=== PATIENT | female | born 1950 | race African-American/Black ===

== ENCOUNTER 2016-11-24 11:01 | Inpatient (IN) | payer MEDICARE, BC ==
[~2016-11-24] VITALS: Ht 167.6 cm; Wt 98.0 kg
[2016-11-24 11:45] VITALS: BP 156/78
--- NOTE | 2016-11-24 12:28 | Emergency Room Report ---
History of Present Illness General Chief Complaint: Pain Source: Patient, Medical Record Present Illness HPI Patient is a 66-year-old female who presented after having gradual onset of increased right leg swelling and discomfort. Patient had prior history of right knee replacement. Patient noted to have subjective fever. Patient was noted to have increased swelling to her right knee which had become increasingly painful. The patient is history of knee surgery which [place]. The patient had prior history of diabetes and was being dialyzed intermittently. Allergies: Coded Allergies: AMOXICILLIN (Verified Allergy, Unknown, 11/24/16) CHOCOLATE FLAVOR (Verified Allergy, Unknown, 11/24/16) Patient History Reviewed Nursing Documentation: PMH: Agreed, PSxH: Agreed Nursing Documentation-PMH Past Medical History: No History, Except For Hx Hypertension: Yes Hx Asthma: Yes Hx Dialysis: Yes - M W F Review of Systems All Other Systems: negative except mentioned in HPI Physical Exam Vital Signs Date Time Temp Pulse Resp B/P Pulse Ox O2 Delivery O2 Flow Rate FiO2 11/24/16 11:31 98.2 79 18 156/78 99 Room Air Sp02 EP Interpretation: reviewed, normal General Appearance: normal inspection, well appearing, no apparent distress, alert, GCS 15 Head: atraumatic ENT: normal ENT inspection, hearing grossly normal, normal voice Neck: normal inspection, full range of motion, supple, no bony tend Respiratory: normal inspection, lungs clear, normal breath sounds, no respiratory distress, no retraction, no wheezing Cardiovascular #1: regular rate, rhythm, no edema Gastrointestinal: normal inspection, normal bowel sounds, non tender, soft, no guarding, no hernia Genitourinary: no CVA tenderness Musculoskeletal: normal inspection, back normal, normal range of motion Neurologic: normal inspection, alert, responsive, speech normal Psychiatric: normal inspection, judgement/insight normal, mood/affect normal Skin: other Medical Decision Making Diagnostic Impression: Primary Impression: Knee effusion, right Additional Impressions: ESRD (end stage renal disease) Diabetes ER Course Presented for knee pain. Differential diagnosis included but was not limited to arthritis, gout, septic joint, among others.Because of complexity of patient' s case laboratory testing and imaging studies were ordered. Had patient was noted to have no evidence of DVT on ultrasound. Patient was also noted to have elevated ESR as well as CRP consistent with inflammation to the right knee. The x-ray imaging of the right knee read by radiology showed a large joint effusion. Dr. Daryl Ochoa was contacted for inpatient observation. Dr. Warren was contacted for orthopedic consult. Labs Test 11/24/16 12:00 White Blood Count 10.4 K/UL (4.8-10.8) Red Blood Count 2.98 M/UL (4.20-5.40) Hemoglobin 9.5 G/DL (12.0-16.0) Hematocrit 30.8 % (37.0-47.0) Mean Corpuscular Volume 104 FL (80-99) Mean Corpuscular Hemoglobin 31.8 PG (27.0-31.0) Mean Corpuscular Hemoglobin Concent 30.7 G/DL (32.0-36.0) Red Cell Distribution Width 15.1 % (11.6-14.8) Platelet Count 388 K/UL (150-450) Mean Platelet Volume 5.8 FL (6.5-10.1) Neutrophils (%) (Auto) 62.1 % (45.0-75.0) Lymphocytes (%) (Auto) 18.8 % (20.0-45.0) Monocytes (%) (Auto) 15.4 % (1.0-10.0) Eosinophils (%) (Auto) 2.7 % (0.0-3.0) Basophils (%) (Auto) 1.0 % (0.0-2.0) Erythrocyte Sedimentation Rate 113 MM/HR (0-30) Sodium Level 138 mEQ/L (135-145) Potassium Level 3.4 mEQ/L (3.4-4.9) Chloride Level 93 mEQ/L (98-107) Carbon Dioxide Level 33 mEQ/L (20-30) Anion Gap 12 (5-15) Blood Urea Nitrogen 18 mg/dL (7-23) Creatinine 5.2 mg/dL (0.5-0.9) Estimat Glomerular Filtration Rate 9.9 mL/min (>60) Glucose Level 111 mg/dL (74-106) Calcium Level 9.1 mg/dL (8.6-10.2) Total Bilirubin 0.6 mg/dL (0.0-1.2) Aspartate Amino Transf (AST/SGOT) 17 U/L (5-40) Alanine Aminotransferase (ALT/SGPT) 17 U/L (3-33) Alkaline Phosphatase 59 U/L (35-104) C-Reactive Protein, Quantitative 29.0 mg/dL (< 0.5) Total Protein 7.8 g/dL (6.6-8.7) Albumin 3.5 g/dL (3.5-5.2) Globulin 4.3 g/dL Albumin/Globulin Ratio 0.8 (1.0-2.7) Last Vital Signs Date Time Temp Pulse Resp B/P Pulse Ox O2 Delivery O2 Flow Rate FiO2 11/24/16 11:45 98.2 18 156/78 99 Room Air 11/24/16 11:31 79 Status: unchanged Disposition: PLACE IN OBSERVATION Condition: Serious Referrals: APOLINAR OCHOA (PCP) Reinaldo Barron Nov 24, 2016 12:28
[2016-11-24 12:30] LABS: EOSINOPHILS % (AUTO) 2.7 % (0.0-3.0); LYMPHOCYTES % (AUTO) 18.8 % (20.0-45.0); MEAN CORPUSCULAR HEMOGLOBIN 31.8 PG (27.0-31.0); MEAN CORPUSCULAR HGB CONC 30.7 G/DL (32.0-36.0); MEAN CORPUSCULAR VOLUME 104 FL (80-99); MEAN PLATELET VOLUME 5.8 FL (6.5-10.1); MONOCYTES % (AUTO) 15.4 % (1.0-10.0); NEUTROPHILS % (AUTO) 62.1 % (45.0-75.0); PLATELET COUNT 388 K/UL (150-450); RED BLOOD COUNT 2.98 M/UL (4.20-5.40); RED CELL DISTRIBUTION WIDTH 15.1 % (11.6-14.8); WHITE BLOOD COUNT 10.4 K/UL (4.8-10.8)
--- NOTE | 2016-11-24 12:31 | Diagnostic Imaging Report ---
Indication: Pain 3 views of the right knee were obtained. Findings: There is suggestion of a large joint effusion. The cemented total knee arthroplasty is present. There is no fracture or malalignment identified. No abnormal interface lucencies are seen. Impression: Joint effusion. Total knee arthroplasty noted
[2016-11-24 12:41] LABS: ALBUMIN/GLOBULIN RATIO 0.8 (1.0-2.7); CALCIUM 9.1 mg/dL (8.6-10.2); CREATININE 5.2 mg/dL (0.5-0.9); GLOMERULAR FILTRATION RATE 9.9 mL/min (>60); POTASSIUM 3.4 mEQ/L (3.4-4.9); TOTAL PROTEIN 7.8 g/dL (6.6-8.7)
[2016-11-24 15:05] VITALS: BP 152/88
[2016-11-24 15:51] VITALS: BP 164/81
[2016-11-24] MEDS ORDERED: ELIQUIS2.5 MG PO (16:00)
[2016-11-24] MEDS ORDERED: METOPROLOL TART50 MG ORAL (16:00)
[2016-11-24] MEDS ORDERED: TRAMADOL HCL50 MG ORAL (16:00)
[2016-11-24] MEDS ORDERED: FAMOTIDINE20 MG ORAL (16:00)
[2016-11-24] MEDS ORDERED: RENVELA2.4 GM ORAL (16:00)
[2016-11-24 17:27] VITALS: BP 140/64
[2016-11-24] MEDS: Eliquis 2.5mg tablet ORAL SCH (18:28)
[2016-11-24] MEDS: Renvela 2400 mg pkt NG SCH (18:28)
[2016-11-24] MEDS ORDERED: Vancomycin 1250mg/D5W 250ml IVPB ONE (18:30)
--- NOTE | 2016-11-24 18:56 | History & Physical ---
History and Physical History & Physicial 66-year-old female who presented after having gradual onset of increased right leg swelling and discomfort. Patient had prior history of right knee replacement. She notes subjective fever. Patient was noted to have increased swelling to her right knee which has now become increasingly painful. Patient has been cooperative with dialysis. She has had some difficulty bearing weight. findings noted and reviewed. Active Medications: ELIQUIS 2.5 MG ORAL TABS (APIXABAN) 1 po bid LEVOTHYROXINE SODIUM 125 MCG TABS (LEVOTHYROXINE SODIUM) 1 tab qd FAMOTIDINE 20 MG TABS (FAMOTIDINE) 1 tab po bid METOPROLOL TARTRATE 50 MG ORAL TABS (METOPROLOL TARTRATE) 1 tab bid TRAMADOL HCL 50 MG ORAL TABS (TRAMADOL HCL) 1 TAB BY MOUTH EVERY 6HRS NEEDED FOR MODERATE TO SEVERE PAIN *NTE 400MGHRS* Current Allergies: PENICILLIN (PENICILLIN V POTASSIUM) (Mild) Past History Past Medical History: DVT left arm and left leg Hypertension hx carpal tunnel syndrome acute kidney failure Hypothyroidism Surgical History: dialysis M_W_F carpal tunnle release left hand left knee replacement right knee replacement thyroidectomy tubaligation Cholecystectomy fistula left arm tonsillectomy Family History: Both parents Mother-heart disease Father-prostate cancer Social History: single; 2 children;lives alone; retired Risk Factors: Smoked Tobacco Use: Former smoker Cigarettes: Yes -- 1/2 pack(s) per day, Years smoked: 5-10 Years Since Last Quit: 40 Caffeine use: 2 drinks per day Alcohol use: no Physical Exam Respiratory Respiratory Effort: no intercostal retractions or use of accessory muscles Palpation: normal fremitus Auscultation: no rales, rhonchi, or wheezes Cardiovascular Palpation: no thrill or palpable murmurs, no displacement of PMI Auscultation: S1, S2, no murmur, rub, or gallop Gastrointestinal Abdomen: soft, non-tender, no masses, bowel sounds normal minimal epigastric tendernsss Liver and Spleen: no enlargement or nodularity Musculoskeletal Gait and Station: normal LUE: AV fistula right knee swelling and erythema Laboratory Tests Test 11/24/16 12:00 White Blood Count 10.4 K/UL (4.8-10.8) Red Blood Count 2.98 M/UL (4.20-5.40) L Hemoglobin 9.5 G/DL (12.0-16.0) L Hematocrit 30.8 % (37.0-47.0) L Mean Corpuscular Volume 104 FL (80-99) H Mean Corpuscular Hemoglobin 31.8 PG (27.0-31.0) H Mean Corpuscular Hemoglobin Concent 30.7 G/DL (32.0-36.0) L Red Cell Distribution Width 15.1 % (11.6-14.8) H Platelet Count 388 K/UL (150-450) Mean Platelet Volume 5.8 FL (6.5-10.1) L Neutrophils (%) (Auto) 62.1 % (45.0-75.0) Lymphocytes (%) (Auto) 18.8 % (20.0-45.0) L Monocytes (%) (Auto) 15.4 % (1.0-10.0) H Eosinophils (%) (Auto) 2.7 % (0.0-3.0) Basophils (%) (Auto) 1.0 % (0.0-2.0) Erythrocyte Sedimentation Rate 113 MM/HR (0-30) H Sodium Level 138 mEQ/L (135-145) Potassium Level 3.4 mEQ/L (3.4-4.9) Chloride Level 93 mEQ/L (98-107) L Carbon Dioxide Level 33 mEQ/L (20-30) H Anion Gap 12 (5-15) Blood Urea Nitrogen 18 mg/dL (7-23) Creatinine 5.2 mg/dL (0.5-0.9) H Estimat Glomerular Filtration Rate 9.9 mL/min (>60) Glucose Level 111 mg/dL (74-106) H Calcium Level 9.1 mg/dL (8.6-10.2) Total Bilirubin 0.6 mg/dL (0.0-1.2) Aspartate Amino Transf (AST/SGOT) 17 U/L (5-40) Alanine Aminotransferase (ALT/SGPT) 17 U/L (3-33) Alkaline Phosphatase 59 U/L (35-104) C-Reactive Protein, Quantitative 29.0 mg/dL (< 0.5) H Total Protein 7.8 g/dL (6.6-8.7) Albumin 3.5 g/dL (3.5-5.2) Globulin 4.3 g/dL Albumin/Globulin Ratio 0.8 (1.0-2.7) L IMPRESSION right knee swelling elevated CRP concern for joint infection ESRD anemia prior GIB PLAN IV vanco ID evaluation consider ortho evaluation resume medications HD per renal impression, plan, and exam edited and reviewed in detail care discussed with APOLINAR GONZALEZ Nov 24, 2016 18:55
[2016-11-24 20:00] VITALS: BP 145/76
[2016-11-24] MEDS ORDERED: Heparin 5000 units/ml inj SUBQ SCH (21:00)
[2016-11-24] MEDS ORDERED: Famotidine 20 MG/ 2ML VIAL IVP SCH (21:00)
[2016-11-24] MEDS: Metoprolol Tartrate 50mg tab ORAL SCH (21:02)
[2016-11-25] VITALS (7 sets, daily range): BP systolic 140–157; BP diastolic 74–96
[2016-11-25 07:05] LABS: BASOPHILS % (AUTO) 0.9 % (0.0-2.0); EOSINOPHILS % (AUTO) 2.8 % (0.0-3.0); LYMPHOCYTES % (AUTO) 21.4 % (20.0-45.0); MEAN CORPUSCULAR HEMOGLOBIN 31.1 PG (27.0-31.0); MEAN CORPUSCULAR VOLUME 104 FL (80-99); MEAN PLATELET VOLUME 6.1 FL (6.5-10.1); MONOCYTES % (AUTO) 14.4 % (1.0-10.0); NEUTROPHILS % (AUTO) 60.5 % (45.0-75.0); PLATELET COUNT 371 K/UL (150-450); RED CELL DISTRIBUTION WIDTH 15.1 % (11.6-14.8); WHITE BLOOD COUNT 8.3 K/UL (4.8-10.8)
[2016-11-25] MEDS: Eliquis 2.5mg tablet ORAL SCH (08:22)
[2016-11-25] MEDS: Metoprolol Tartrate 50mg tab ORAL SCH ×2 (08:22→20:03)
[2016-11-25] MEDS: traMADol 50mg tab ORAL PRN (08:23)
[2016-11-25] MEDS: Renvela 2400 mg pkt NG SCH (08:23)
--- NOTE | 2016-11-25 08:31 | Consultation ---
Consult Note Consult Note 66 Yo ESRD pt with rt TKA 1 year ago out of state. 1 week hx of rt knee swelling warmth and pain with subjective fever. no trauma. abx started on admission. ESR/CRP elevated 2+ effusion rt knee with painful ROM and warmth. incision healed. no erythema that can be appreciated Xray reviewed- no issue with prosthesis Assessment/Plan Likely Septic Rt TKA 1. IR aspiration of rt knee with fluid sent for studies 2. likely needs transfer to [facility] for resection arthroplasty with cement abx spacer, 6weeks IV abx, followed by revision TKA after abx tx complete 3. will f/u on studies ADAMS BATES Nov 25, 2016 08:31
--- NOTE | 2016-11-25 09:00 | General Progress Note ---
Assessment/Plan Assessment/Plan IMPRESSION right knee swelling elevated CRP concern for joint infection ESRD anemia prior GIB hypothyroid PLAN IV vanco ID evaluation Ortho evaluation resume medications HD per renal impression, plan, and exam edited and reviewed in detail care discussed with RN Subjective Allergies: Coded Allergies: AMOXICILLIN (Verified Allergy, Unknown, 11/24/16) CHOCOLATE FLAVOR (Verified Allergy, Unknown, 11/24/16) Subjective care noted and reviewed knee pain on antibiotics Objective Last 24 Hour Vital Signs Date Time Temp Pulse Resp B/P Pulse Ox O2 Delivery O2 Flow Rate FiO2 11/25/16 08:29 98.6 74 20 155/81 100 Room Air 11/25/16 08:22 71 149/80 11/25/16 06:24 97.5 11/25/16 04:15 97.5 71 20 149/80 97 Room Air 11/25/16 00:51 97.3 64 20 157/80 98 Nasal Cannula 11/24/16 21:02 77 140/64 11/24/16 20:00 99.0 82 19 145/76 94 Nasal Cannula 11/24/16 17:27 99.0 77 18 140/64 95 Room Air 11/24/16 16:12 86 16 146/59 99 Room Air 11/24/16 15:05 77 12 152/88 100 Room Air 11/24/16 11:45 98.2 18 156/78 99 Room Air 11/24/16 11:31 98.2 79 18 156/78 99 Room Air Intake and Output 11/24/16 11/25/16 19:00 07:00 Intake Total 320 ml Balance 320 ml Intake Oral 320 ml # Voids 1 Laboratory Tests 11/24/16 12:00: White Blood Count 10.4, Red Blood Count 2.98L, Hemoglobin 9.5L, Hematocrit 30.8L , Mean Corpuscular Volume 104H, Mean Corpuscular Hemoglobin 31.8H, Mean Corpuscular Hemoglobin Concent 30.7L, Red Cell Distribution Width 15.1H, Platelet Count 388, Mean Platelet Volume 5.8L, Neutrophils (%) (Auto) 62.1, Lymphocytes (%) (Auto) 18.8L, Monocytes (%) (Auto) 15.4H, Eosinophils (%) (Auto ) 2.7, Basophils (%) (Auto) 1.0, Erythrocyte Sedimentation Rate 113H, Sodium Level 138, Potassium Level 3.4, Chloride Level 93L, Carbon Dioxide Level 33H, Anion Gap 12, Blood Urea Nitrogen 18, Creatinine 5.2H, Estimat Glomerular Filtration Rate 9.9, Glucose Level 111H, Calcium Level 9.1, Total Bilirubin 0.6 , Aspartate Amino Transf (AST/SGOT) 17, Alanine Aminotransferase (ALT/SGPT) 17, Alkaline Phosphatase 59, C-Reactive Protein, Quantitative 29.0H, Total Protein 7.8, Albumin 3.5, Globulin 4.3, Albumin/Globulin Ratio 0.8L 11/25/16 05:40: White Blood Count 8.3, Red Blood Count 2.90L, Hemoglobin 9.0L, Hematocrit 30.0L , Mean Corpuscular Volume 104H, Mean Corpuscular Hemoglobin 31.1H, Mean Corpuscular Hemoglobin Concent 30.0L, Red Cell Distribution Width 15.1H, Platelet Count 371, Mean Platelet Volume 6.1L, Neutrophils (%) (Auto) 60.5, Lymphocytes (%) (Auto) 21.4, Monocytes (%) (Auto) 14.4H, Eosinophils (%) (Auto) 2.8, Basophils (%) (Auto) 0.9, C-Reactive Protein, Quantitative 24.5H Height (Feet): 5 Height (Inches): 6.00 Weight (Pounds): 219 Objective WDWN NAD clear breath sounds bilaterally without rhonchi or wheeze [id number] without MRG NABS nontender no HSM no CCE nonfocal pain and erythema with reduced ROM of right knee APOLINAR PINA Nov 25, 2016 09:00
[2016-11-25] MEDS ORDERED: NS 275ml ONE (09:07)
[2016-11-25] MEDS ORDERED: Tubing IV Secondary IV ONE (09:07)
--- NOTE | 2016-11-25 13:45 | Consultation ---
DATE OF CONSULTATION: 11/25/2016 ORTHOPEDIC CONSULTATION HISTORY OF PRESENT ILLNESS: The patient is a pleasant 66-year-old female, who is on dialysis and had a right total knee arthroplasty in January 2016, out of state, who presented to [facility] last night with pain and swelling in the right knee and inability to get around. The patient indicates that her knee has been swollen and painful for about a week and she does not recall how this came about. There was no trauma and no fall. She did not hit her knee on anything. She has noted some subjective fevers at home, although she has not taken her temperature and here at the hospital CRP and ESR have been elevated. She has not had any documented fevers or documented white count, but she has significantly swollen and painful right knee and she has had a hard time getting around. PAST MEDICAL HISTORY: Diabetes, on dialysis. PAST SURGICAL HISTORY: Knee replacement in 2016, [place] of state. SOCIAL HISTORY: She is single. She has two children. She is retired. She lives alone. FAMILY HISTORY: Noncontributory. REVIEW OF SYSTEMS: The patient complains of some subjective fever and chills. She has had no headache or dizziness. She has had right knee pain and swelling. She denies chest pain or shortness of breath. PHYSICAL EXAMINATION: GENERAL: She is a very pleasant woman. She is cooperative with examination. She is lying in bed comfortably. EXTREMITIES: She has a 2+ effusion about the right knee with a healed incision. No erythema or signs of wound or skin breakdown in the area, although she has significant warmth to the skin. She has full extension, but can only flex to about 45 degrees without significant pain. She is neurovascularly intact. DIAGNOSTIC DATA: X-rays are reviewed. X-ray of the knee revealed TKA without any periprosthetic fracture. IMPRESSION: Likely septic right total knee. DISCUSSION: At this time, I discussed the patient my findings. We will send her down to interventional radiology for aspiration of the knee and send the fluid for culture and sensitivity, gram stain, cell count with differential, as well as crystals. We will follow up on that although likely the patient will need transfer to a tertiary center such as [facility] for likely resection arthroplasty with cement antibiotic spacers followed by six weeks of IV antibiotics. Once IV antibiotics are completed, the patient will then need revision knee arthroplasty on this side. This again should be handled at tertiary center such as [facility] with a joint resection specialist. I will follow up on the studies and make recommendations to likely initiate transfer once these have been reviewed as well. Discussed with the patient. She understands with the plan. Sherwin Warren M.D. Skyla Nair DR: MAGALI JOB#: [id number] CC: JESUS
--- NOTE | 2016-11-25 18:45 | Consultation ---
DATE OF CONSULTATION: 11/25/2016 INFECTIOUS DISEASE CONSULTATION REFERRING PHYSICIAN: Arya Ochoa M.D. REASON FOR CONSULTATION: Right knee infection. HISTORY OF PRESENTING ILLNESS: This is a 66-year-old lady with history of hypertension and asthma as well as carpal tunnel syndrome who came in with increasing pain and swelling in the right leg. She had a history of right knee replacement in January 2016. She does get dialysis for renal failure. She has been admitted and an Infectious Diseases consultation has been obtained for antibiotics. She has been seen by orthopedics and an aspiration of the knee is planned and an Infectious Diseases consultation has been obtained. PAST MEDICAL HISTORY: 1. History of hypertension. 2. History of asthma. 3. History of renal failure, on dialysis. 4. Carpal tunnel syndrome. 5. Hypothyroidism. 6. History of carpal tunnel release. 7. History of right knee replacement in January 2016. 8. History of left knee replacement. 9. Thyroidectomy. 10. History of tubal ligation. 11. Cholecystectomy. 12. History of left arm fistula placement. 13. Tonsillectomy. MEDICATIONS: As an inpatient, she is on Synthroid, famotidine, metoprolol, Tylenol, Eliquis, Renvela, IV vancomycin and Ultram. ALLERGIES: 1. Amoxicillin. 2. Chocolate. SOCIAL HISTORY: She used to smoke before. She does not smoke anymore. She drinks alcohol socially. No history of drug use. FAMILY HISTORY: Positive for heart disease in her mother and prostate cancer in her father. REVIEW OF SYSTEMS: Respiratory: She had fever and chills. No cough. No shortness of breath or chest pain. Cardiac: No chest pain. No palpitation. No dizziness. No syncope. Gastrointestinal: No nausea. No vomiting. No abdominal pain or diarrhea. Musculoskeletal: She complains of right knee pain. PHYSICAL EXAMINATION: VITAL SIGNS: Temperature of 97.6 degrees, T-max of 99 degrees, pulse of 69, respiratory rate 20, blood pressure 142/74 and O2 saturation of 98%. HEENT: Pupils equally reactive to light and accommodation. Mouth appears clean without thrush. NECK: Supple. No adenopathy. No JVD. CARDIOVASCULAR: Regular rate and rhythm. No murmurs. LUNGS: Clear to auscultation bilaterally. No crackles. No wheezes. ABDOMEN: Soft and nontender. No organomegaly. EXTREMITIES: No cyanosis, no clubbing, and no edema. Right knee swelling and tenderness noted. LABORATORY AND DIAGNOSTIC DATA: White count 8.3, hemoglobin 9, hematocrit 30, MCV 104, and platelet count of 371,000 with neutrophils of 60%. Sodium 138, potassium 3.4, chloride 93, bicarbonate 33, BUN 18, creatinine 5.2, and glucose 111. Calcium 9.1. Total bilirubin 0.6. AST 17, ALT 17, and alkaline phosphatase 59. C-reactive protein of 24. Total protein 7.8. Albumin 3.5. Knee x-ray showing joint effusion with total knee arthroplasty. ASSESSMENT: 1. This is a 66-year-old lady with history of hypertension, renal failure, and right knee arthroplasty who comes in with right knee swelling and pain and fever and chills, would be concerned regarding an arthroplasty infection or septic arthritis of the right knee. 2. Renal failure. PLAN: 1. Continue IV vancomycin. 2. Aspiration of the knee has been planned. 3. We will follow up cultures. I would like to thank, Dr. Ochoa, for this consultation. Yin Hooks M.D. DR: GINI JOB#: [id number] CC: Arya Ochoa M.D.
--- NOTE | 2016-11-25 22:15 | Consultation ---
DATE OF CONSULTATION: 11/25/2016 NEPHROLOGY CONSULTATION CONSULTING PHYSICIAN: Hemanth Zapata M.D. REFERRING PHYSICIAN: Arya Ochoa M.D. REASON FOR CONSULTATION: I am asked to evaluate this 66-year-old lady with end-stage renal disease and a swollen right knee. HISTORY OF PRESENT ILLNESS: The patient has end-stage renal disease, receives dialysis via a left arm AV fistula. She has been on dialysis for about six months. She presents with a new onset of right knee pain and swelling. The patient has been on Eliquis for DVT, but recent study showed no DVT acutely. There is no fever or chills, but her knee is warm and swollen. The patient has a history of hypothyroidism, on replacement, hypertension, and end-stage renal disease. No obesity and osteoarthritis. PAST SURGERIES: Carpal tunnel left hand, left knee replacement, right knee replacement, thyroidectomy, tubal ablation, cholecystectomy, fistula in the left arm, and tonsillectomy. HOME MEDICATIONS: Includes Eliquis, levothyroxine, famotidine, metoprolol, and tramadol. ALLERGIES: Penicillin. FAMILY HISTORY: Positive for diabetes and hypertension. HABITS: She smoked cigarettes many years ago for few years and quit. Alcohol, rare. Drugs, none. SYSTEM REVIEW: HEENT: Vision and hearing is good. ENDOCRINE: History of obesity. She had been on metformin sometime in the past, but she denies diabetes. History of hypothyroidism, on replacement. PULMONARY: No asthma, TB, or chronic cough. CARDIAC: No angina or ME. There is a history of hypertension. She has had one episode of congestive heart failure in the past. GASTROINTESTINAL: Intermittent gastritis. No recent nausea, vomiting, or abdominal pain. GENITOURINARY: No dysuria or hematuria. MUSCULOSKELETAL: Osteoarthritis of the knees. She was walking with a cane prior to painful swelling of the knee. NEUROLOGIC: No features. PHYSICAL EXAMINATION: GENERAL: The patient is alert, obese lady, lying in bed, seen at the initiation of dialysis. VITAL SIGNS: Temperature 97.6 degrees, pulse 69, respirations 20, and blood pressure 142/74. HEENT: Sclerae are nonicteric. Ocular motion intact in all directions. Oral mucosa is moist. NECK: No adenopathy or thyroid enlargement. LUNGS: Clear. HEART: Regular rhythm. No murmur. ABDOMEN: Obese and soft. No organomegaly or masses. EXTREMITIES: Showed trace leg edema. She has an AV fistula on the left arm working on dialysis. There are bilateral total knee incisions. Right knee is markedly swollen and warm. PERTINENT LABORATORY DATA: Pertinent labs show a white count of 8.3, hemoglobin 9, and sed rate 113. Electrolytes, potassium is 3.4 and creatinine is 5.2. C-reactive protein is quite high. IMPRESSION AND PLAN: The patient presents with right knee pain and swelling, which could be due to infected knee prosthesis or possibly hematoma in view of her Eliquis recently. She has been seen by orthopedic business process consultant, who recommended aspiration of the knee. Dialysis will be done for maintenance and fluid balance. In view of her obesity and end-stage renal disease, she has increased risk of infection and complications and will be watched closely. Medications will be adjusted for end-stage renal disease. Hemanth Zapata M.D. DR: JENNA JOB#: [id number] CC:
[2016-11-26] VITALS: BP 138/80
[2016-11-26] MEDS: traMADol 50mg tab ORAL PRN ×2 (00:43→18:09)
[2016-11-26 04:00] VITALS: BP 132/75
[2016-11-26 08:06] VITALS: BP 119/61
[2016-11-26] MEDS: Metoprolol Tartrate 50mg tab ORAL SCH ×2 (08:20→20:29)
[2016-11-26 08:35] LABS: BASOPHILS % (AUTO) 0.4 % (0.0-2.0); EOSINOPHILS % (AUTO) 1.8 % (0.0-3.0); LYMPHOCYTES % (AUTO) 16.8 % (20.0-45.0); MEAN CORPUSCULAR HEMOGLOBIN 31.7 PG (27.0-31.0); MEAN CORPUSCULAR HGB CONC 30.8 G/DL (32.0-36.0); MEAN CORPUSCULAR VOLUME 103 FL (80-99); MEAN PLATELET VOLUME 5.8 FL (6.5-10.1); MONOCYTES % (AUTO) 10.7 % (1.0-10.0); NEUTROPHILS % (AUTO) 70.3 % (45.0-75.0); PLATELET COUNT 381 K/UL (150-450); RED BLOOD COUNT 2.93 M/UL (4.20-5.40); RED CELL DISTRIBUTION WIDTH 14.8 % (11.6-14.8); WHITE BLOOD COUNT 11.6 K/UL (4.8-10.8)
--- NOTE | 2016-11-26 09:27 | General Progress Note ---
Assessment/Plan Assessment/Plan IMPRESSION right knee swelling elevated CRP concern for joint infection ESRD anemia prior GIB hypothyroid PLAN IV antibiotics ID evaluation appreciated Ortho evaluation noted resume medications HD per renal await recommendations by specialists and disposition impression, plan, and exam edited and reviewed in detail care discussed with RN Subjective Allergies: Coded Allergies: AMOXICILLIN (Verified Allergy, Unknown, 11/24/16) CHOCOLATE FLAVOR (Verified Allergy, Unknown, 11/24/16) Subjective care noted and reviewed knee pain on antibiotics Objective Last 24 Hour Vital Signs Date Time Temp Pulse Resp B/P Pulse Ox O2 Delivery O2 Flow Rate FiO2 11/26/16 08:20 76 119/61 11/26/16 08:06 97.9 76 19 119/61 99 Room Air 11/26/16 04:00 97.9 70 20 132/75 97 Room Air 11/26/16 01:57 98.2 11/26/16 00:00 98.2 75 20 138/80 99 Room Air 11/25/16 20:03 79 145/78 11/25/16 20:00 99.3 79 20 145/78 98 Room Air 11/25/16 19:50 99.3 79 20 145/78 98 Room Air 11/25/16 17:30 Room Air 11/25/16 16:00 97.2 66 20 140/96 94 Room Air 11/25/16 14:30 Room Air 11/25/16 11:47 97.6 69 20 142/74 98 Room Air Intake and Output 11/25/16 11/26/16 19:00 07:00 Intake Total 800 ml Output Total 1850 ml Balance -1050 ml Intake Oral 800 ml Output Hemodialysis UF 1850 ml # Voids 4 # Bowel Movements 1 Laboratory Tests 11/25/16 16:42: Hepatitis A IgM Antibody [Pending], Hepatitis B Surface Antigen [Pending], Hepatitis B Core IgM Antibody [Pending], Hepatitis C Antibody [Pending] 11/26/16 05:20: White Blood Count 11.6H, Red Blood Count 2.93L, Hemoglobin 9.3L, Hematocrit 30.2L, Mean Corpuscular Volume 103H, Mean Corpuscular Hemoglobin 31.7H, Mean Corpuscular Hemoglobin Concent 30.8L, Red Cell Distribution Width 14.8, Platelet Count 381, Mean Platelet Volume 5.8L, Neutrophils (%) (Auto) 70.3, Lymphocytes (%) (Auto) 16.8L, Monocytes (%) (Auto) 10.7H, Eosinophils (%) (Auto ) 1.8, Basophils (%) (Auto) 0.4, Sodium Level [Pending], Potassium Level [ Pending], Chloride Level [Pending], Carbon Dioxide Level [Pending], Blood Urea Nitrogen [Pending], Creatinine [Pending], Estimat Glomerular Filtration Rate [ Pending], Glucose Level [Pending], Calcium Level [Pending], Random Vancomycin Level 2.0 Height (Feet): 5 Height (Inches): 6.00 Weight (Pounds): 219 Objective WDWN NAD clear breath sounds bilaterally without rhonchi or wheeze [id number] without MRG NABS nontender no HSM no CCE nonfocal pain and erythema with reduced ROM of right knee APOLINAR PINA Nov 26, 2016 09:27
[2016-11-26 09:28] LABS: CALCIUM 9.4 mg/dL (8.6-10.2); CREATININE 6.3 mg/dL (0.5-0.9); POTASSIUM 4.1 mEQ/L (3.4-4.9)
[2016-11-26] MEDS ORDERED: Vancomycin 1.5gm/D5W 250ml 250 ML IVPB ONE (10:00)
[2016-11-26] MEDS: Docusate 100mg cap ORAL SCH ×2 (10:12→17:05)
[2016-11-26 11:24] VITALS: BP 115/69
--- NOTE | 2016-11-26 12:26 | Nephrology Progress Note ---
Assessment/Plan Problem List: (1) ESRD (end stage renal disease) (2) Knee effusion, right (3) Diabetes Plan dialysiss per usual schedule, knee aspiration pending , likely will need knee washout/surgery Subjective Constitutional: Reports: weakness HEENT: Reports: no symptoms Genitourinary: Reports: no symptoms Neurologic/Psychiatric: Reports: no symptoms Objective Objective Last 24 Hour Vital Signs Date Time Temp Pulse Resp B/P Pulse Ox O2 Delivery O2 Flow Rate FiO2 11/26/16 11:24 97.5 67 19 115/69 98 Room Air 11/26/16 08:20 76 119/61 11/26/16 08:06 97.9 76 19 119/61 99 Room Air 11/26/16 04:00 97.9 70 20 132/75 97 Room Air 11/26/16 01:57 98.2 11/26/16 00:00 98.2 75 20 138/80 99 Room Air 11/25/16 20:03 79 145/78 11/25/16 20:00 99.3 79 20 145/78 98 Room Air 11/25/16 19:50 99.3 79 20 145/78 98 Room Air 11/25/16 17:30 Room Air 11/25/16 16:00 97.2 66 20 140/96 94 Room Air 11/25/16 14:30 Room Air Intake and Output 11/25/16 11/26/16 19:00 07:00 Intake Total 800 ml Output Total 1850 ml Balance -1050 ml Intake Oral 800 ml Output Hemodialysis UF 1850 ml # Voids 4 # Bowel Movements 1 Laboratory Tests 11/25/16 16:42: Hepatitis A IgM Antibody [Pending], Hepatitis B Surface Antigen [Pending], Hepatitis B Core IgM Antibody [Pending], Hepatitis C Antibody [Pending] 11/26/16 05:20: White Blood Count 11.6H, Red Blood Count 2.93L, Hemoglobin 9.3L, Hematocrit 30.2L, Mean Corpuscular Volume 103H, Mean Corpuscular Hemoglobin 31.7H, Mean Corpuscular Hemoglobin Concent 30.8L, Red Cell Distribution Width 14.8, Platelet Count 381, Mean Platelet Volume 5.8L, Neutrophils (%) (Auto) 70.3, Lymphocytes (%) (Auto) 16.8L, Monocytes (%) (Auto) 10.7H, Eosinophils (%) (Auto ) 1.8, Basophils (%) (Auto) 0.4, Sodium Level 133L, Potassium Level 4.1, Chloride Level 91L, Carbon Dioxide Level 30, Anion Gap 12, Blood Urea Nitrogen 30H, Creatinine 6.3H, Estimat Glomerular Filtration Rate 8.0, Glucose Level 89, Calcium Level 9.4, Random Vancomycin Level 2.0 Height (Feet): 5 Height (Inches): 6.00 Weight (Pounds): 219 General Appearance: no apparent distress, obese EENT: PERRL/EOMI Neck: normal alignment Cardiovascular: normal peripheral pulses, regular rhythm Respiratory/Chest: lungs clear Abdomen: non tender Extremities: normal capillary refill, other - mod r knee swelling Neurologic: parts room assistant II-XII grossly normal TIMUR BROWER Nov 26, 2016 12:26
--- NOTE | 2016-11-26 13:27 | Orthopedic Progress Note ---
Orthopedic - Progress Note Subjective Additional Comments Patient knee pain under control. The aspiration was not done yesterday (radiology told the nurse that they could not see the order). Order clearly in the computer. Objective Vital Signs Last 24 Hour Vital Signs Date Time Temp Pulse Resp B/P Pulse Ox O2 Delivery O2 Flow Rate FiO2 11/26/16 11:24 97.5 67 19 115/69 98 Room Air 11/26/16 08:20 76 119/61 11/26/16 08:06 97.9 76 19 119/61 99 Room Air 11/26/16 04:00 97.9 70 20 132/75 97 Room Air 11/26/16 01:57 98.2 11/26/16 00:00 98.2 75 20 138/80 99 Room Air 11/25/16 20:03 79 145/78 11/25/16 20:00 99.3 79 20 145/78 98 Room Air 11/25/16 19:50 99.3 79 20 145/78 98 Room Air 11/25/16 17:30 Room Air 11/25/16 16:00 97.2 66 20 140/96 94 Room Air 11/25/16 14:30 Room Air I&O Intake and Output 11/25/16 11/26/16 19:00 07:00 Intake Total 800 ml Output Total 1850 ml Balance -1050 ml Intake Oral 800 ml Hemodialysis UF 1850 ml # Voids 4 # Bowel Movements 1 Wound: clean, dry, intact Drains: none Neuro Status: normal Vascular Status: normal Plan Plan: PT, pain management Additional Comments Awaiting radiologist aspiration and send for cell count, diff, cultures, gram stain, sensitivity. NORMA CASEY Nov 26, 2016 13:27
[2016-11-26 15:53] VITALS: BP 136/75
[2016-11-26] MEDS ORDERED: Tubing IV Secondary IV ONE (16:51)
[2016-11-26] MEDS ORDERED: NS 275ml ONE (16:51)
[2016-11-26 20:00] VITALS: BP 120/66
[2016-11-27] VITALS: BP 145/78
[2016-11-27 04:00] VITALS: BP 137/74
--- NOTE | 2016-11-27 08:29 | General Progress Note ---
Assessment/Plan Assessment/Plan IMPRESSION right knee swelling elevated CRP concern for joint infection ESRD anemia prior GIB hypothyroid PLAN no change in exam patient care discussed in detail IV antibiotics ID evaluation appreciated Ortho evaluation noted resume medications HD per renal await recommendations by specialists and disposition aspiration reordered impression, plan, and exam edited and reviewed in detail care discussed with RN Subjective Allergies: Coded Allergies: AMOXICILLIN (Verified Allergy, Unknown, 11/24/16) CHOCOLATE FLAVOR (Verified Allergy, Unknown, 11/24/16) Subjective care noted and reviewed knee pain on antibiotics Objective Last 24 Hour Vital Signs Date Time Temp Pulse Resp B/P Pulse Ox O2 Delivery O2 Flow Rate FiO2 11/27/16 04:00 98.4 73 17 137/74 99 Room Air 11/27/16 00:00 98.8 75 18 145/78 98 Room Air 11/26/16 20:29 72 120/66 11/26/16 20:00 98.2 74 18 120/66 99 Room Air 11/26/16 15:53 97.5 72 18 136/75 100 Room Air 11/26/16 11:24 97.5 67 19 115/69 98 Room Air Intake and Output 11/26/16 11/27/16 19:00 07:00 Intake Total 850.00 ml 240 ml Output Total 0 ml Balance 850.00 ml 240 ml Intake Oral 600 ml 240 ml IV Total 250.00 ml Output Urine Total 0 ml # Voids 1 2 Height (Feet): 5 Height (Inches): 6.00 Weight (Pounds): 219 Objective WDWN NAD clear breath sounds bilaterally without rhonchi or wheeze [id number] without MRG NABS nontender no HSM no CCE nonfocal pain and erythema with reduced ROM of right knee APOLINAR PINA Nov 27, 2016 08:29
[2016-11-27 08:32] VITALS: BP 129/73
--- NOTE | 2016-11-27 09:11 | Infectious Diseases Prog Note ---
Assessment/Plan Assessment/Plan A: R prosthetic knee arthritis ESRD on HD Obesity Hypothyroidism Anemia VRE colonization P; Continue Vancomycin Tapping of R knee planned Subjective Constitutional: Reports: no symptoms Respiratory: Reports: no symptoms Cardiovascular: Reports: no symptoms Genitourinary: Reports: no symptoms Musculoskeletal: Reports: other - & swelling in R knee, pain Allergies: Coded Allergies: AMOXICILLIN (Verified Allergy, Unknown, 11/24/16) CHOCOLATE FLAVOR (Verified Allergy, Unknown, 11/24/16) Objective Vital Signs Last 24 Hour Vital Signs Date Time Temp Pulse Resp B/P Pulse Ox O2 Delivery O2 Flow Rate FiO2 11/27/16 08:32 97.9 75 20 129/73 97 Room Air 11/27/16 04:00 98.4 73 17 137/74 99 Room Air 11/27/16 00:00 98.8 75 18 145/78 98 Room Air 11/26/16 20:29 72 120/66 11/26/16 20:00 98.2 74 18 120/66 99 Room Air 11/26/16 15:53 97.5 72 18 136/75 100 Room Air 11/26/16 11:24 97.5 67 19 115/69 98 Room Air Height (Feet): 5 Height (Inches): 6.00 Weight (Pounds): 219 General Appearance: no acute distress HEENT: mucous membranes moist Respiratory/Chest: lungs clear Cardiovascular: normal rate Abdomen: soft, non tender Extremities: other - Scar of surgery in R knee, R knee effusion Neurologic/Psychiatric: alert, oriented x 3, responsive Microbiology Date/Time Source Procedure Growth Status 11/24/16 16:10 Nasal Nares MRSA Culture - Final NO METHICILLIN RESISTANT STAPH AUREUS... Complete 11/24/16 16:10 Rectum VRE Culture - Final Enterococcus Faecalis - Vre Complete Current Medications Medications (Trade) Dose Ordered Sig/Adia Route PRN Reason Start Time Stop Time Status Last Admin Dose Admin Acetaminophen (Tylenol) 650 mg Q4H PRN ORAL Mild Pain/Temp > 100.5 11/24/16 20:00 12/24/16 19:59 11/26/16 13:06 Docusate Sodium (Colace) 100 mg TWICE A DAY ORAL 11/26/16 09:00 12/26/16 08:59 11/26/16 17:05 Levothyroxine Sodium (Synthroid) 75 mcg DAILY@0630 ORAL 11/25/16 09:00 12/25/16 08:59 11/27/16 05:54 Metoprolol Tartrate (Lopressor) 50 mg Q12HR ORAL 11/24/16 21:00 12/24/16 20:59 11/26/16 20:29 Ranitidine HCl (Zantac) 150 mg BEDTIME ORAL 11/25/16 21:00 12/25/16 20:59 11/26/16 20:28 Sevelamer Carbonate (Renvela) 2,400 mg THREE TIMES A DAY ORAL 11/25/16 13:00 12/25/16 12:59 11/26/16 17:05 Tramadol HCl (Ultram) 50 mg Q6H PRN ORAL PAIN MANAGEMENT 11/24/16 17:15 12/01/16 17:14 11/26/16 18:09 Vancomycin HCl (Vanco rx to dose) 1 ea DAILY PRN MISC Per rx protocol 11/24/16 17:15 12/24/16 17:14 RADHA PALENCIA Nov 27, 2016 09:11
[2016-11-27] MEDS: Docusate 100mg cap ORAL SCH ×2 (09:16→18:09)
[2016-11-27] MEDS: Metoprolol Tartrate 50mg tab ORAL SCH ×2 (09:17→20:45)
--- NOTE | 2016-11-27 10:36 | Nephrology Progress Note ---
Assessment/Plan Problem List: (1) ESRD (end stage renal disease) (2) Knee effusion, right (3) Diabetes Plan dialysis per usual schedule, knee aspiration pending , likely will need knee washout/surgery Subjective Constitutional: Reports: weakness HEENT: Reports: no symptoms Genitourinary: Reports: no symptoms Neurologic/Psychiatric: Reports: no symptoms Objective Objective Last 24 Hour Vital Signs Date Time Temp Pulse Resp B/P Pulse Ox O2 Delivery O2 Flow Rate FiO2 11/27/16 09:17 75 129/73 11/27/16 08:32 97.9 75 20 129/73 97 Room Air 11/27/16 04:00 98.4 73 17 137/74 99 Room Air 11/27/16 00:00 98.8 75 18 145/78 98 Room Air 11/26/16 20:29 72 120/66 11/26/16 20:00 98.2 74 18 120/66 99 Room Air 11/26/16 15:53 97.5 72 18 136/75 100 Room Air 11/26/16 11:24 97.5 67 19 115/69 98 Room Air Intake and Output 11/26/16 11/27/16 19:00 07:00 Intake Total 850.00 ml 240 ml Output Total 0 ml Balance 850.00 ml 240 ml Intake Oral 600 ml 240 ml IV Total 250.00 ml Output Urine Total 0 ml # Voids 1 2 Height (Feet): 5 Height (Inches): 6.00 Weight (Pounds): 219 General Appearance: no apparent distress, obese EENT: normal ENT inspection Neck: normal alignment Cardiovascular: normal rate Respiratory/Chest: lungs clear, normal breath sounds Abdomen: non tender Extremities: other - r knee swollen Neurologic: line ordering clinician II-XII grossly normal TIMUR BROWER Nov 27, 2016 10:36
[2016-11-27] MEDS: Bisacodyl EC 5mg tab ORAL PRN (10:42)
[2016-11-27 11:53] VITALS: BP 144/80
[2016-11-27 16:00] VITALS: BP 121/70
[2016-11-27 20:00] VITALS: BP 122/70
[2016-11-27] MEDS: traMADol 50mg tab ORAL PRN (23:18)
[2016-11-28] VITALS: BP 157/73
[2016-11-28 04:00] VITALS: BP 131/71
[2016-11-28 07:37] LABS: BASOPHILS % (AUTO) 0.8 % (0.0-2.0); EOSINOPHILS % (AUTO) 3.3 % (0.0-3.0); LYMPHOCYTES % (AUTO) 26.1 % (20.0-45.0); MEAN CORPUSCULAR HEMOGLOBIN 32.4 PG (27.0-31.0); MEAN CORPUSCULAR HGB CONC 31.8 G/DL (32.0-36.0); MEAN CORPUSCULAR VOLUME 102 FL (80-99); MEAN PLATELET VOLUME 5.5 FL (6.5-10.1); NEUTROPHILS % (AUTO) 59.8 % (45.0-75.0); PLATELET COUNT 462 K/UL (150-450); RED BLOOD COUNT 3.05 M/UL (4.20-5.40); RED CELL DISTRIBUTION WIDTH 14.9 % (11.6-14.8); WHITE BLOOD COUNT 9.5 K/UL (4.8-10.8)
[2016-11-28 07:43] LABS: CALCIUM 9.5 mg/dL (8.6-10.2); CREATININE 8.5 mg/dL (0.5-0.9); GLOMERULAR FILTRATION RATE 5.7 mL/min (>60); POTASSIUM 4.1 mEQ/L (3.4-4.9)
[2016-11-28 08:15] VITALS: BP 118/53
--- NOTE | 2016-11-28 08:42 | General Progress Note ---
Assessment/Plan Assessment/Plan IMPRESSION right knee swelling elevated CRP concern for joint infection ESRD anemia prior GIB hypothyroid PLAN no change in exam overall pain less patient care discussed in detail IV antibiotics ID evaluation appreciated Ortho evaluation noted continue medications HD per renal await recommendations by specialists and disposition aspiration reordered and hopefully to be done today impression, plan, and exam edited and reviewed in detail care discussed with RN Subjective Allergies: Coded Allergies: AMOXICILLIN (Verified Allergy, Unknown, 11/24/16) CHOCOLATE FLAVOR (Verified Allergy, Unknown, 11/24/16) Subjective care noted and reviewed knee pain on antibiotics patient anxious to go home Objective Last 24 Hour Vital Signs Date Time Temp Pulse Resp B/P Pulse Ox O2 Delivery O2 Flow Rate FiO2 11/28/16 08:15 97.3 73 20 118/53 97 Room Air 11/28/16 04:00 97.3 67 20 131/71 98 Room Air 11/28/16 00:23 98.2 11/28/16 00:00 98.2 74 20 157/73 98 Room Air 11/27/16 20:45 74 122/70 11/27/16 20:00 97.3 74 20 122/70 Room Air 11/27/16 16:00 97.2 65 20 121/70 98 Room Air 11/27/16 13:47 98.1 11/27/16 11:53 98.1 67 20 144/80 98 Room Air 11/27/16 09:17 75 129/73 Intake and Output 11/27/16 11/28/16 19:00 07:00 Intake Total 960 ml Balance 960 ml Intake Oral 960 ml # Voids 1 3 # Bowel Movements 1 Laboratory Tests 11/28/16 06:35: White Blood Count 9.5, Red Blood Count 3.05L, Hemoglobin 9.9L, Hematocrit 31.0L , Mean Corpuscular Volume 102H, Mean Corpuscular Hemoglobin 32.4H, Mean Corpuscular Hemoglobin Concent 31.8L, Red Cell Distribution Width 14.9H, Platelet Count 462H, Mean Platelet Volume 5.5L, Neutrophils (%) (Auto) 59.8, Lymphocytes (%) (Auto) 26.1, Monocytes (%) (Auto) 10.0, Eosinophils (%) (Auto) 3.3H, Basophils (%) (Auto) 0.8, Sodium Level 131L, Potassium Level 4.1, Chloride Level 89L, Carbon Dioxide Level 27, Anion Gap 15, Blood Urea Nitrogen 57H, Creatinine 8.5H, Estimat Glomerular Filtration Rate 5.7, Glucose Level 100 , Calcium Level 9.5, Random Vancomycin Level 22.5 Height (Feet): 5 Height (Inches): 6.00 Weight (Pounds): 219 Objective WDWN NAD clear breath sounds bilaterally without rhonchi or wheeze [id number] without MRG NABS nontender no HSM no CCE nonfocal pain and erythema with reduced ROM of right knee- somewhat improved APOLINAR PINA Nov 28, 2016 08:41
[2016-11-28] MEDS: Metoprolol Tartrate 50mg tab ORAL SCH ×2 (09:00→20:58)
[2016-11-28] MEDS: Docusate 100mg cap ORAL SCH ×2 (09:21→17:06)
[2016-11-28] MEDS: Bisacodyl EC 5mg tab ORAL PRN (09:56)
--- NOTE | 2016-11-28 10:36 | Infectious Diseases Prog Note ---
Assessment/Plan Assessment/Plan antibiotics : vancomycin iv A 1. right knee possible septic arthritis r/o TKA infection 2. s/p right TKA 3. renal failure 4. HTN 5. rectal VRE colonization P 1. continue vancomycin iv 2. aspiration pending Subjective Constitutional: Denies: chills, fever Respiratory: Denies: dry cough, shortness of breath Gastrointestinal/Abdominal: Denies: diarrhea, nausea, vomiting Musculoskeletal: Reports: pain - in right knee Allergies: Coded Allergies: AMOXICILLIN (Verified Allergy, Unknown, 11/24/16) CHOCOLATE FLAVOR (Verified Allergy, Unknown, 11/24/16) Objective Vital Signs Last 24 Hour Vital Signs Date Time Temp Pulse Resp B/P Pulse Ox O2 Delivery O2 Flow Rate FiO2 11/28/16 10:21 97.3 11/28/16 09:00 73 118/53 11/28/16 08:15 97.3 73 20 118/53 97 Room Air 11/28/16 04:00 97.3 67 20 131/71 98 Room Air 11/28/16 00:23 98.2 11/28/16 00:00 98.2 74 20 157/73 98 Room Air 11/27/16 20:45 74 122/70 11/27/16 20:00 97.3 74 20 122/70 Room Air 11/27/16 16:00 97.2 65 20 121/70 98 Room Air 11/27/16 11:53 98.1 67 20 144/80 98 Room Air Height (Feet): 5 Height (Inches): 6.00 Weight (Pounds): 219 Respiratory/Chest: lungs clear Cardiovascular: normal rate, regular rhythm, no gallop/murmur Abdomen: soft, non tender Extremities: other - right knee swelling, warmth Laboratory Tests Test 11/28/16 06:35 White Blood Count 9.5 K/UL (4.8-10.8) Red Blood Count 3.05 M/UL (4.20-5.40) L Hemoglobin 9.9 G/DL (12.0-16.0) L Hematocrit 31.0 % (37.0-47.0) L Mean Corpuscular Volume 102 FL (80-99) H Mean Corpuscular Hemoglobin 32.4 PG (27.0-31.0) H Mean Corpuscular Hemoglobin Concent 31.8 G/DL (32.0-36.0) L Red Cell Distribution Width 14.9 % (11.6-14.8) H Platelet Count 462 K/UL (150-450) H Mean Platelet Volume 5.5 FL (6.5-10.1) L Neutrophils (%) (Auto) 59.8 % (45.0-75.0) Lymphocytes (%) (Auto) 26.1 % (20.0-45.0) Monocytes (%) (Auto) 10.0 % (1.0-10.0) Eosinophils (%) (Auto) 3.3 % (0.0-3.0) H Basophils (%) (Auto) 0.8 % (0.0-2.0) Sodium Level 131 mEQ/L (135-145) L Potassium Level 4.1 mEQ/L (3.4-4.9) Chloride Level 89 mEQ/L (98-107) L Carbon Dioxide Level 27 mEQ/L (20-30) Anion Gap 15 (5-15) Blood Urea Nitrogen 57 mg/dL (7-23) H Creatinine 8.5 mg/dL (0.5-0.9) H Estimat Glomerular Filtration Rate 5.7 mL/min (>60) Glucose Level 100 mg/dL (74-106) Calcium Level 9.5 mg/dL (8.6-10.2) Random Vancomycin Level 22.5 ug/mL PASTORA GAR Nov 28, 2016 10:36
[2016-11-28 12:15] VITALS: BP 133/86
--- NOTE | 2016-11-28 12:23 | Diagnostic Imaging Report ---
APPROVED REPORT CPT Code: 07974 Present Symptoms Comments: Right knee pain S/P knee Surgery RIGHT LEG: Venous imaging reveals a patent deep venous system. There is no evidence of thrombus within the femoral, popliteal or tibial segments. The greater saphenous vein is also within normal limits. Doppler indicates normal spontaneous flow within these segments. Incidental findings: Cystic, fluid filled structure noted around the anterior right knee area, measuring (4.3cm x 3.1cm).
--- NOTE | 2016-11-28 14:31 | Nephrology Progress Note ---
Assessment/Plan Problem List: (1) ESRD (end stage renal disease) (2) Knee effusion, right (3) Diabetes Plan dialysis per usual schedule,seen on HD 11/28 knee aspiration result pending , likely will need knee washout/surgery Subjective Constitutional: Reports: weakness HEENT: Reports: no symptoms Genitourinary: Reports: no symptoms Neurologic/Psychiatric: Reports: no symptoms Objective Objective Last 24 Hour Vital Signs Date Time Temp Pulse Resp B/P Pulse Ox O2 Delivery O2 Flow Rate FiO2 11/28/16 12:15 98.2 69 19 133/86 99 Room Air 11/28/16 10:21 97.3 11/28/16 09:00 73 118/53 11/28/16 08:15 97.3 73 20 118/53 97 Room Air 11/28/16 04:00 97.3 67 20 131/71 98 Room Air 11/28/16 00:23 98.2 11/28/16 00:00 98.2 74 20 157/73 98 Room Air 11/27/16 20:45 74 122/70 11/27/16 20:00 97.3 74 20 122/70 Room Air 11/27/16 16:00 97.2 65 20 121/70 98 Room Air Intake and Output 11/27/16 11/28/16 19:00 07:00 Intake Total 960 ml Balance 960 ml Intake Oral 960 ml # Voids 1 3 # Bowel Movements 1 Laboratory Tests 11/28/16 06:35: White Blood Count 9.5, Red Blood Count 3.05L, Hemoglobin 9.9L, Hematocrit 31.0L , Mean Corpuscular Volume 102H, Mean Corpuscular Hemoglobin 32.4H, Mean Corpuscular Hemoglobin Concent 31.8L, Red Cell Distribution Width 14.9H, Platelet Count 462H, Mean Platelet Volume 5.5L, Neutrophils (%) (Auto) 59.8, Lymphocytes (%) (Auto) 26.1, Monocytes (%) (Auto) 10.0, Eosinophils (%) (Auto) 3.3H, Basophils (%) (Auto) 0.8, Sodium Level 131L, Potassium Level 4.1, Chloride Level 89L, Carbon Dioxide Level 27, Anion Gap 15, Blood Urea Nitrogen 57H, Creatinine 8.5H, Estimat Glomerular Filtration Rate 5.7, Glucose Level 100 , Calcium Level 9.5, Random Vancomycin Level 22.5 11/28/16 13:50: Body Fluid Source [Pending], Body Fluid Volume [Pending], Body Fluid RBC [ Pending], Body Fluid Total Nucleated Cells [Pending], Body Fluid Polynuclear WBCs (%) [Pending], Body Fluid Mononuclear WBCs (%) [Pending], Synovial Fluid Crystals [Pending] Height (Feet): 5 Height (Inches): 6.00 Weight (Pounds): 219 General Appearance: no apparent distress, obese EENT: normal ENT inspection Neck: normal alignment Cardiovascular: regular rhythm Respiratory/Chest: lungs clear Abdomen: non tender, soft, no organomegaly Extremities: other - r knee swollen Neurologic: grey percher II-XII grossly normal TIMUR BROWER Nov 28, 2016 14:31
[2016-11-28 14:57] LABS: BD FL VOLUME 50 mL
[2016-11-28 14:58] LABS: BD FL SOURCE SYNOVIAL RIGHT KNEE; BODY FLUID NUCLEATED CELLS 76550 /CUMM; BODY FLUID RBC 2400 /CUMM; MONONUCLEAR WBC 2 %; POLYMORPHONUCLEAR WBC 98 %
[2016-11-28 15:44] VITALS: BP 96/58
--- NOTE | 2016-11-28 15:58 | Diagnostic Imaging Report ---
Indication: Right knee pain, swelling Technique: Informed consent obtained prior to commencing the procedure. Procedure timeout performed. 6 intended puncture site localized with ultrasound. Sterile prepping and draping. Local anesthesia with 1% lidocaine. Under real-time ultrasound guidance, the fluid-filled joint was accessed using a Yueh needle. Total of approximately 70 mL of cloudy yellow fluid aspirated. Specimen was sent to the lab. Followup sonography demonstrated near complete evacuation of the fluid. The patient tolerated the procedure well, without immediate complication. Comparison: None Findings: As above Impression: Successful right knee aspiration under ultrasound guidance, yielding total 70 mL of cloudy yellow fluid
--- NOTE | 2016-11-28 16:51 | Physician Query ---
PLEASE COMPLETE THE QUESTION BEFORE SIGNING Dear Dr. Sherwin Warren Date: November [employer] Adjuster/CDS Name: CAROLE Negrete Phone No. : [phone] Exercise your independent professional judgment when responding to the query. Questions asked do not imply a particular answer is desired or expected. We greatly appreciate your clarification on this issue. CLINICAL DOCUMENTATION STATES: The patient is a pleasant 84-year-old female, who sustained a mechanical fall and landed on her left hip. She had pain in her left hip. She was ambulating prior to this with a walker. She was evaluated in the ER and a CT scan was obtained. CT scan showed a nondisplaced sacral fracture and a pubic rami fracture CLINICAL FINDINGS SHOW: CT of the Pelvis: Acute nondisplaced fracture of the left hemisacrum and left superior and inferior pubic rami. Osteoporosis Please respond to the following question: Is there a causal relationship between the Osteoporosis and the Acute nondisplaced fracture of the left hemisacrum and left superior and inferior pubic rami ? PHYSICIAN RESPONSE: [] YES [] NO Condition Present on admission [] Yes [] No []Clinically Undeterminable Please also document in your Progress Notes and/or Discharge summary and indicate if the condition was present on admission. Sherwin Warren M.D. Time/Date [facility]
[2016-11-28 20:00] VITALS: BP 114/62
[2016-11-29] VITALS: BP 129/69
[2016-11-29 04:00] VITALS: BP 127/70
[2016-11-29] MEDS: Metoprolol Tartrate 50mg tab ORAL SCH ×2 (08:30→20:31)
[2016-11-29] MEDS: Docusate 100mg cap ORAL SCH ×2 (08:31→17:04)
[2016-11-29 08:53] VITALS: BP 120/76
--- NOTE | 2016-11-29 12:31 | Orthopedic Progress Note ---
Orthopedic - Progress Note Subjective Additional Comments Knee pain better. White count back down to normal. Still some pain, but better ROM Objective Vital Signs Last 24 Hour Vital Signs Date Time Temp Pulse Resp B/P Pulse Ox O2 Delivery O2 Flow Rate FiO2 11/29/16 08:53 97.0 79 19 120/76 98 Room Air 11/29/16 08:30 79 120/70 11/29/16 07:39 98.6 11/29/16 04:00 98.6 80 20 127/70 99 Room Air 11/29/16 00:00 99.0 72 20 129/69 96 Room Air 11/28/16 20:58 65 109/60 11/28/16 20:00 97.9 67 20 114/62 100 Room Air 11/28/16 15:44 97.0 71 20 96/58 98 Room Air I&O Intake and Output 11/28/16 11/29/16 19:00 07:00 Intake Total 720 ml Balance 720 ml Intake Oral 720 ml # Voids 1 4 # Bowel Movements 2 Drains: none Neuro Status: normal Additional Comments Almost full extension. Flexion to 90 degrees some warmth to the knee. Mild effusion Plan Additional Comments Knee aspiration showed 98 WBC, significant RBC. Cultures negative to date. Gram stain negative. No crystals to date. Patient was started on abx prior to aspiration. There could be indolent infection that is partially treated with abx. Recommend outpatient follow up with joint replacement sepcialist. Recommend [facility] physicians including Bam Reilly, Fred Lal, or Lokesh Vance. Patient is not acutely septic or evidence of infection not clear in the knee. Recommend continue monitoring with C-ractive protein, Sed rate, CBC. At this time, no surgical intervention is necessary. Spoke with Dr. Lion. Thank you. NORMA CASEY Nov 29, 2016 12:31
[2016-11-29 12:43] VITALS: BP 117/67
--- NOTE | 2016-11-29 13:47 | Infectious Diseases Prog Note ---
Assessment/Plan Assessment/Plan A: R prosthetic knee arthritis ESRD on HD Obesity Hypothyroidism Anemia VRE colonization P; Continue Vancomycin will f/u culture Subjective ROS Limited/Unobtainable: No Constitutional: Reports: no symptoms Musculoskeletal: Reports: other - in right knee, pain, swelling Allergies: Coded Allergies: AMOXICILLIN (Verified Allergy, Unknown, 11/24/16) CHOCOLATE FLAVOR (Verified Allergy, Unknown, 11/24/16) Objective Vital Signs Last 24 Hour Vital Signs Date Time Temp Pulse Resp B/P Pulse Ox O2 Delivery O2 Flow Rate FiO2 11/29/16 12:43 97.7 68 19 117/67 99 Room Air 11/29/16 08:53 97.0 79 19 120/76 98 Room Air 11/29/16 08:30 79 120/70 11/29/16 07:39 98.6 11/29/16 04:00 98.6 80 20 127/70 99 Room Air 11/29/16 00:00 99.0 72 20 129/69 96 Room Air 11/28/16 20:58 65 109/60 11/28/16 20:00 97.9 67 20 114/62 100 Room Air 11/28/16 15:44 97.0 71 20 96/58 98 Room Air Height (Feet): 5 Height (Inches): 6.00 Weight (Pounds): 219 General Appearance: no acute distress HEENT: mucous membranes moist Respiratory/Chest: lungs clear Cardiovascular: normal rate Abdomen: soft, non tender Extremities: other - R knee effusion Microbiology Date/Time Source Procedure Growth Status 11/28/16 13:50 Synovial Fluid Gram Stain - Final Resulted 11/28/16 13:50 Synovial Fluid Body Fluid Culture - Preliminary NO GROWTH AFTER 24 HOURS Resulted Laboratory Tests Test 11/28/16 13:50 Body Fluid Source Synovial right knee Body Fluid Volume 50 mL Body Fluid RBC 2400 /CUMM Body Fluid Total Nucleated Cells 40669 /CUMM Body Fluid Polynuclear WBCs (%) 98 % Body Fluid Mononuclear WBCs (%) 2 % Synovial Fluid Crystals Comment (None seen) Current Medications Medications (Trade) Dose Ordered Sig/Adia Route PRN Reason Start Time Stop Time Status Last Admin Dose Admin Acetaminophen (Tylenol) 650 mg Q4H PRN ORAL Mild Pain/Temp > 100.5 11/24/16 20:00 12/24/16 19:59 11/29/16 06:40 Bisacodyl (Dulcolax) 5 mg DAILYPRN PRN ORAL Constipation 11/27/16 11:00 12/27/16 10:59 11/28/16 09:56 Docusate Sodium (Colace) 100 mg TWICE A DAY ORAL 11/26/16 09:00 12/26/16 08:59 11/29/16 08:31 Levothyroxine Sodium (Synthroid) 75 mcg DAILY@0630 ORAL 11/25/16 09:00 12/25/16 08:59 11/29/16 06:33 Metoprolol Tartrate (Lopressor) 50 mg Q12HR ORAL 11/24/16 21:00 12/24/16 20:59 11/29/16 08:30 Ranitidine HCl (Zantac) 150 mg BEDTIME ORAL 11/25/16 21:00 12/25/16 20:59 11/28/16 20:58 Sevelamer Carbonate (Renvela) 2,400 mg THREE TIMES A DAY ORAL 11/25/16 13:00 12/25/16 12:59 11/29/16 12:13 Tramadol HCl (Ultram) 50 mg Q6H PRN ORAL PAIN MANAGEMENT 11/24/16 17:15 12/01/16 17:14 11/27/16 23:18 Vancomycin HCl (Vanco rx to dose) 1 ea DAILY PRN MISC Per rx protocol 11/24/16 17:15 12/24/16 17:14 RADHA PALENCIA Nov 29, 2016 13:47
--- NOTE | 2016-11-29 14:18 | General Progress Note ---
Assessment/Plan Assessment/Plan IMPRESSION right knee swelling elevated CRP concern for joint infection ESRD anemia prior GIB hypothyroid PLAN no change in exam overall pain less but still present patient care discussed in detail IV antibiotics per ID Ortho evaluation noted; needs joint removal continue medications HD per renal not yet stable for discharge impression, plan, and exam edited and reviewed in detail care discussed with RN Subjective Allergies: Coded Allergies: AMOXICILLIN (Verified Allergy, Unknown, 11/24/16) CHOCOLATE FLAVOR (Verified Allergy, Unknown, 11/24/16) Subjective care noted and reviewed with ortho knee pain on antibiotics dc ID and Ortho needs joint removal Objective Last 24 Hour Vital Signs Date Time Temp Pulse Resp B/P Pulse Ox O2 Delivery O2 Flow Rate FiO2 11/29/16 12:43 97.7 68 19 117/67 99 Room Air 11/29/16 08:53 97.0 79 19 120/76 98 Room Air 11/29/16 08:30 79 120/70 11/29/16 07:39 98.6 11/29/16 04:00 98.6 80 20 127/70 99 Room Air 11/29/16 00:00 99.0 72 20 129/69 96 Room Air 11/28/16 20:58 65 109/60 11/28/16 20:00 97.9 67 20 114/62 100 Room Air 11/28/16 15:44 97.0 71 20 96/58 98 Room Air Intake and Output 11/28/16 11/29/16 19:00 07:00 Intake Total 720 ml Balance 720 ml Intake Oral 720 ml # Voids 1 4 # Bowel Movements 2 Height (Feet): 5 Height (Inches): 6.00 Weight (Pounds): 219 Objective WDWN NAD clear breath sounds bilaterally without rhonchi or wheeze [id number] without MRG NABS nontender no HSM no CCE nonfocal pain and erythema with reduced ROM of right knee- somewhat same APOLINAR PINA Nov 29, 2016 14:18
[2016-11-29 16:01] VITALS: BP 126/69
[2016-11-29 20:00] VITALS: BP 116/68
--- NOTE | 2016-11-29 20:53 | Nephrology Progress Note ---
Assessment/Plan Problem List: (1) ESRD (end stage renal disease) (2) Knee effusion, right (3) Diabetes Plan dialysis per usual schedule,seen on HD 11/28 knee aspiration result reviewed , likely will need knee washout/surgery Subjective Constitutional: Reports: other - knee pain HEENT: Reports: no symptoms Genitourinary: Reports: no symptoms Neurologic/Psychiatric: Reports: no symptoms Objective Objective Last 24 Hour Vital Signs Date Time Temp Pulse Resp B/P Pulse Ox O2 Delivery O2 Flow Rate FiO2 11/29/16 20:31 78 129/78 11/29/16 20:00 97.7 71 18 116/68 95 Room Air 11/29/16 16:01 97.5 69 21 126/69 97 Room Air 11/29/16 15:00 97.7 11/29/16 12:43 97.7 68 19 117/67 99 Room Air 11/29/16 08:53 97.0 79 19 120/76 98 Room Air 11/29/16 08:30 79 120/70 11/29/16 04:00 98.6 80 20 127/70 99 Room Air 11/29/16 00:00 99.0 72 20 129/69 96 Room Air 11/28/16 20:58 65 109/60 Intake and Output 11/28/16 11/29/16 19:00 07:00 Intake Total 720 ml Balance 720 ml Intake Oral 720 ml # Voids 1 4 # Bowel Movements 2 Height (Feet): 5 Height (Inches): 6.00 Weight (Pounds): 219 General Appearance: no apparent distress, alert, obese EENT: normal ENT inspection Neck: normal alignment Cardiovascular: normal rate Respiratory/Chest: normal breath sounds Abdomen: non tender, soft Extremities: other - r knee swollen 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
[2016-11-29] MEDS: traMADol 50mg tab ORAL PRN (23:32)
[2016-11-30] VITALS (14 sets, daily range): BP systolic 118–177; BP diastolic 66–92
--- NOTE | 2016-11-30 04:15 | Consultation ---
DATE OF CONSULTATION: 11/29/2016 ORTHOPEDIC CONSULTATION CHIEF COMPLAINT: Right knee pain. HISTORY OF PRESENT ILLNESS: The patient is a pleasant 66-year-old female, who I have been asked to provide a secondary consultation take over care. The patient reports that she has had well functioning total knee arthroplasty for approximately a year. Approximately two weeks ago, she noted some leg discomfort and pain in the right knee. She was admitted last Monday. She has had infection work up. There was concern that she may have a periprosthetic infection. Therefore, orthopedic consultation obtained for further care and recommendation. PAST MEDICAL HISTORY: Reviewed from the intake chart. PAST SURGICAL HISTORY: Reviewed from the intake chart. MEDICATIONS: Reviewed from the intake chart. PHYSICAL EXAMINATION: GENERAL: The patient is alert and oriented. She is resting comfortably in bed. EXTREMITIES: Right knee examination shows incisions are clean, dry, and intact. Moderate discomfort with patellar grind pain along the medial joint line. Range of motion is -5 to 100. Posterior calf is soft. Neurovascular is normal. IMAGING STUDIES: Imaging studies of the knee, right knee showed what appears to be Biomet implant in place. LABORATORY VALUES: Show ESR 120 and C-reactive of 28. ASSESSMENT: 1. Right knee periprosthetic fracture. 2. End-stage renal disease. DISCUSSION: I think we should proceed with I and D and excision and tibial insert. Risks, limitations, expectations, and complications related to the procedure were discussed in detail. I discussed with her that she has a 70% success rate. If she has recurrent infection at that time then ultimately she may require two stage resection arthroplasty followed by reimplantation. We will proceed with surgery tomorrow, if I can get the tibial inserts available. Raymond Tinoco M.D. DR: MC JOB#: [id number] CC: JESUS
[2016-11-30] MEDS: Docusate 100mg cap ORAL SCH ×2 (09:00→19:03)
[2016-11-30] MEDS ORDERED: Vancomycin 1250mg/D5W 250ml 250 ML IVPB SCH (09:15)
[2016-11-30] MEDS: Metoprolol Tartrate 50mg tab ORAL SCH ×2 (09:25→21:00)
--- NOTE | 2016-11-30 11:00 | General Progress Note ---
Assessment/Plan Assessment/Plan IMPRESSION right knee swelling elevated CRP concern for joint infection ESRD anemia prior GIB hypothyroid PLAN no change in exam overall pain less but still present patient care discussed in detail IV antibiotics per ID Ortho evaluation noted; for I and D continue medications HD per renal not yet stable for discharge will follow up post op impression, plan, and exam edited and reviewed in detail care discussed with RN Subjective Allergies: Coded Allergies: AMOXICILLIN (Verified Allergy, Unknown, 11/24/16) CHOCOLATE FLAVOR (Verified Allergy, Unknown, 11/24/16) Subjective care noted and reviewed with ortho knee pain on antibiotics plan for I and D today Objective Last 24 Hour Vital Signs Date Time Temp Pulse Resp B/P Pulse Ox O2 Delivery O2 Flow Rate FiO2 11/30/16 09:25 72 118/73 11/30/16 08:33 97.9 72 20 118/73 100 Room Air 11/30/16 04:00 97.7 68 18 126/66 98 Room Air 11/30/16 00:00 98.1 74 18 127/71 100 Room Air 11/29/16 20:31 78 129/78 11/29/16 20:00 97.7 71 18 116/68 95 Room Air 11/29/16 16:01 97.5 69 21 126/69 97 Room Air 11/29/16 15:00 97.7 11/29/16 12:43 97.7 68 19 117/67 99 Room Air Intake and Output 11/29/16 11/30/16 19:00 07:00 # Voids 2 2 Laboratory Tests 11/30/16 05:45: Random Vancomycin Level 16.1 Height (Feet): 5 Height (Inches): 6.00 Weight (Pounds): 78 Objective WDWN NAD clear breath sounds bilaterally without rhonchi or wheeze [id number] without MRG NABS nontender no HSM no CCE nonfocal pain and erythema with reduced ROM of right knee- somewhat same APOLINAR PINA Nov 30, 2016 11:00
[2016-11-30] MEDS ORDERED: Dexamethasone 4mg/ml vial ONE (12:00)
[2016-11-30] MEDS ORDERED: Lidocaine 1% MPF 10mg/ml 5ml ONE (12:00)
[2016-11-30] MEDS ORDERED: fentaNYL 100 mcg/2 mL IV ONE (12:00)
[2016-11-30] MEDS ORDERED: NS Irrig 4000ml IRRIG ONE (12:00)
[2016-11-30] MEDS ORDERED: Midazolam 2mg/2ml Inj ONE (12:00)
[2016-11-30] MEDS ORDERED: Sterile Water Irrig 1000ml IRRIG ONE (12:00)
--- NOTE | 2016-11-30 12:06 | Pre-Procedure Note/Attestation ---
Pre-Procedure Note/Attestation Complete Prior to Procedure Planned Procedure: right Procedure Narrative: incision and draiange tka with exchange of tibial insert Indications for Procedure Pre-Operative Diagnosis: right tka infection Attestation I attest that I discussed the nature of the procedure; its benefits; risks and complications; and alternatives (and the risks and benefits of such alternatives ), prior to the procedure, with the patient (or the patient's legal sales representative graphic art). I attest that, if there was a reasonable possibility of needing a blood transfusion, the patient (or the patient's legal sales representative graphic art) was given the [facility] standardized written summary, pursuant to the Timothy Vern Blood Safety Act ([place] Health and Safety Code # 1645, as amended). I attest that I re-evaluated the patient just prior to the surgery and that there has been no change in the patient's H&P, except as documented below: ILANA WHALEY Nov 30, 2016 12:06
--- NOTE | 2016-11-30 12:07 | Operative Note - PDOC ---
Operative Note Operative Note Pre-op Diagnosis: right tka infection Procedure: see op report Post-op Diagnosis: same as pre-op plus Operative Findings: consistent w/pre-op dx studies Anesthesia: general Specimen: yes Complications: none Condition: stable Drains: none Implant(s) used?: Yes ILANA WHALEY Nov 30, 2016 12:07
[2016-11-30] MEDS ORDERED: oxyCODONE 5mg IR tab ORAL PRN (12:15)
[2016-11-30] MEDS ORDERED: Morphine Sulfate 2mg/ml Inj IVP PRN ×2 (12:15)
[2016-11-30] MEDS ORDERED: Milk of Magnesia 30ml Ud ORAL PRN (12:15)
--- NOTE | 2016-11-30 12:22 | Infectious Diseases Prog Note ---
Assessment/Plan Assessment/Plan antibiotics : vancomycin iv A 1. right knee possible septic arthritis r/o TKA infection 2. s/p right TKA 3. renal failure 4. HTN 5. rectal VRE colonization P 1. continue vancomycin iv 2. surgery pending Subjective Constitutional: Denies: chills, fever Respiratory: Denies: dry cough, shortness of breath Gastrointestinal/Abdominal: Denies: diarrhea, nausea, vomiting Musculoskeletal: Reports: pain - in right knee Allergies: Coded Allergies: AMOXICILLIN (Verified Allergy, Unknown, 11/24/16) CHOCOLATE FLAVOR (Verified Allergy, Unknown, 11/24/16) Objective Vital Signs Last 24 Hour Vital Signs Date Time Temp Pulse Resp B/P Pulse Ox O2 Delivery O2 Flow Rate FiO2 11/30/16 11:55 97.5 67 19 140/77 100 Room Air 11/30/16 09:25 72 118/73 11/30/16 08:33 97.9 72 20 118/73 100 Room Air 11/30/16 04:00 97.7 68 18 126/66 98 Room Air 11/30/16 00:00 98.1 74 18 127/71 100 Room Air 11/29/16 20:31 78 129/78 11/29/16 20:00 97.7 71 18 116/68 95 Room Air 11/29/16 16:01 97.5 69 21 126/69 97 Room Air 11/29/16 15:00 97.7 11/29/16 12:43 97.7 68 19 117/67 99 Room Air Height (Feet): 5 Height (Inches): 6.00 Weight (Pounds): 78 Respiratory/Chest: lungs clear Cardiovascular: normal rate, regular rhythm, no gallop/murmur Abdomen: soft, non tender Extremities: other - right knee swelling, edema Microbiology Date/Time Source Procedure Growth Status 11/28/16 13:50 Synovial Fluid Gram Stain - Final Resulted 11/28/16 13:50 Synovial Fluid Body Fluid Culture - Preliminary NO GROWTH AFTER 48 HOURS Resulted Laboratory Tests Test 11/30/16 05:45 Random Vancomycin Level 16.1 ug/mL PASTORA GAR Nov 30, 2016 12:22
[2016-11-30] MEDS ORDERED: Vancomycin 1gm inj IVPB ONE ×2 (12:36→13:15)
[2016-11-30 12:45] LABS: BASOPHILS % (AUTO) 0.8 % (0.0-2.0); EOSINOPHILS % (AUTO) 2.5 % (0.0-3.0); LYMPHOCYTES % (AUTO) 21.1 % (20.0-45.0); MEAN CORPUSCULAR HEMOGLOBIN 31.1 PG (27.0-31.0); MEAN CORPUSCULAR HGB CONC 30.8 G/DL (32.0-36.0); MEAN CORPUSCULAR VOLUME 101 FL (80-99); MEAN PLATELET VOLUME 5.1 FL (6.5-10.1); MONOCYTES % (AUTO) 12.7 % (1.0-10.0); PLATELET COUNT 355 K/UL (150-450); RED BLOOD COUNT 2.67 M/UL (4.20-5.40); RED CELL DISTRIBUTION WIDTH 14.6 % (11.6-14.8); WHITE BLOOD COUNT 8.7 K/UL (4.8-10.8)
[2016-11-30] MEDS ORDERED: oxyCODONE HCL/Acetaminophen 5/325mg ORAL PRN (13:00)
[2016-11-30] MEDS ORDERED: Atropine Inj 1mg/10ml Syr IV PRN (13:00)
[2016-11-30] MEDS ORDERED: LORazepam Inj 2mg/ml 1ml IV PRN (13:00)
[2016-11-30] MEDS ORDERED: Metoclopramide 10mg/2ml Inj IVP PRN (13:00)
[2016-11-30] MEDS ORDERED: Norco 7.5mg/325mg tab ORAL PRN (13:00)
[2016-11-30] MEDS ORDERED: Meperidine 25mg/0.5ml Inj (FOR RIGORS ONLY) IV PRN (13:00)
[2016-11-30] MEDS ORDERED: fentaNYL 100 mcg/2 mL IV PRN (13:00)
[2016-11-30] MEDS ORDERED: Midazolam 2mg/2ml Inj IVP PRN (13:00)
[2016-11-30] MEDS: Acetaminophen 500mg (ES) tab ORAL SCH ×2 (13:00→19:09)
[2016-11-30] MEDS ORDERED: Ketorolac 30mg Inj IV PRN (13:00)
[2016-11-30] MEDS ORDERED: Norco 5mg/325mg tab ORAL PRN (13:00)
[2016-11-30] MEDS ORDERED: Ketorolac 60mg Inj IV PRN (13:00)
[2016-11-30] MEDS ORDERED: LR 1000ml 1,000 ML IVLG SCH (13:00)
[2016-11-30] MEDS ORDERED: DiphenhydrAMINE 50mg/ml Inj IVP PRN (13:00)
--- NOTE | 2016-11-30 13:00 | Anethesia Preoperative Eval ---
Anesthesia Pre-op PMH/ROS General Date of Evaluation: Nov 30, 2016 Time of Evaluation: 12:06 Anesthesiologist: Mya ASA Score: ASA 3 Mallampati Score Class I : Soft palate, uvula, fauces, pillars visible Class II: Soft palate, uvula, fauces visible Class III: Soft palate, base of uvula visible Class IV: Only hard plate visible Mallampati Classification: Class II Surgeon: Earnest Diagnosis: R Knee Swelling Surgical Procedure: R Knee I & D, Placement of Insert Anesthesia History: none Family History: no anesthesia problems Allergies: Coded Allergies: AMOXICILLIN (Verified Allergy, Unknown, 11/24/16) CHOCOLATE FLAVOR (Verified Allergy, Unknown, 11/24/16) Medications: see eMAR Past Medical History Cardiovascular: Reports: HTN Pulmonary: Reports: asthma Gastrointestinal/Genitourinary: Reports: ESRD, GERD Hematology/Immune: Reports: anemia Musculoskeletal/Integumentary: Reports: OA Other: obesity - BMI 36 PSxH Narrative: AV Fistula L Arm, R TKR Anesthesia Pre-op Phys. Exam Physician Exam Last Vital Signs Date Time Temp Pulse Resp B/P Pulse Ox O2 Delivery O2 Flow Rate FiO2 11/30/16 11:55 97.5 67 19 140/77 100 Room Air Constitutional: NAD Neurologic: CN 2-12 intact Cardiovascular: RRR Respiratory: CTA Gastrointestinal: S/NT/ND Airway Exam Mallampati Score: Class II MO: limited ROM: limited Teeth: intact Anesthesia Pre-op A/P Labs Hematology Test 11/30/16 05:45 White Blood Count 8.7 K/UL (4.8-10.8) Red Blood Count 2.67 M/UL (4.20-5.40) L Hemoglobin 8.3 G/DL (12.0-16.0) L Hematocrit 27.0 % (37.0-47.0) L Mean Corpuscular Volume 101 FL (80-99) H Mean Corpuscular Hemoglobin 31.1 PG (27.0-31.0) H Mean Corpuscular Hemoglobin Concent 30.8 G/DL (32.0-36.0) L Red Cell Distribution Width 14.6 % (11.6-14.8) Platelet Count 355 K/UL (150-450) Mean Platelet Volume 5.1 FL (6.5-10.1) L Neutrophils (%) (Auto) 63.0 % (45.0-75.0) Lymphocytes (%) (Auto) 21.1 % (20.0-45.0) Monocytes (%) (Auto) 12.7 % (1.0-10.0) H Eosinophils (%) (Auto) 2.5 % (0.0-3.0) Basophils (%) (Auto) 0.8 % (0.0-2.0) Risk Assessment & Plan Assessment: ASA 3 Plan: Start IV, GA, BIS Status Change Before Surgery: No Pre-Antibiotics Drug: On Floor Gagandeep Roque MD Nov 30, 2016 13:00
--- NOTE | 2016-11-30 13:03 | Immediate Post-Op Evaluation ---
Immediate Post-Op Evalulation Immediate Post-Op Evalulation Procedure: R Knee I & D, Placement of Insert Date of Evaluation: Nov 30, 2016 Time of Evaluation: 14:07 IV Fluids: 100 NS Blood Products: 0 Estimated Blood Loss: 50 Urinary Output: 0 Blood Pressure Systolic: 186 Blood Pressure Diastolic: 84 Pulse Rate: 71 Respiratory Rate: 16 O2 Sat by Pulse Oximetry: 100 Temperature (Fahrenheit): 97.3 Pain Score (1-10): 3 Nausea: No Vomiting: No Complications 0 Patient Status: awake, reacts, patent, extubated, none Hydration Status: adequate Drug: On Floor Gagandeep Roque MD Nov 30, 2016 13:03
[2016-11-30] MEDS ORDERED: Acetaminophen (Non formulary) 100 ML IV SCH (13:15)
[2016-11-30] MEDS: Hydromorphone 0.5mg/0.5ml inj IVP PRN ×2 (14:09→14:39)
[2016-11-30] MEDS ORDERED: Bacitracin 50000 Units Vial ONE (14:16)
[2016-11-30] MEDS: Morphine Sulfate 4mg/ml Inj IVP PRN (17:25)
--- NOTE | 2016-11-30 17:46 | Nephrology Progress Note ---
Assessment/Plan Problem List: (1) ESRD (end stage renal disease) (2) Knee effusion, right (3) Diabetes Plan dialysis per usual schedule,seen on HD 11/28 knee aspiration result reviewed , had knee washout/surgery, observe postop Subjective Constitutional: Reports: weakness HEENT: Reports: no symptoms Genitourinary: Reports: no symptoms Neurologic/Psychiatric: Reports: no symptoms Objective Objective Last 24 Hour Vital Signs Date Time Temp Pulse Resp B/P Pulse Ox O2 Delivery O2 Flow Rate FiO2 11/30/16 16:01 97.3 76 19 154/74 99 Nasal Cannula 2.0 76 11/30/16 15:09 98.0 11/30/16 15:05 98.0 74 15 150/73 100 Nasal Cannula 3.0 11/30/16 14:50 75 15 159/73 100 Nasal Cannula 3.0 11/30/16 14:39 74 12 155/71 100 Nasal Cannula 3.0 11/30/16 14:33 174/82 11/30/16 14:25 73 16 174/82 100 Nasal Cannula 3.0 11/30/16 14:09 73 15 159/85 100 Nasal Cannula 3.0 11/30/16 14:05 71 11 164/85 100 Simple Mask 6.0 11/30/16 14:00 72 15 160/85 100 Simple Mask 6.0 11/30/16 13:56 97.3 67 22 177/92 100 Simple Mask 6.0 11/30/16 13:56 71 16 100 11/30/16 11:55 97.5 67 19 140/77 100 Room Air 11/30/16 09:25 72 118/73 11/30/16 08:33 97.9 72 20 118/73 100 Room Air 11/30/16 04:00 97.7 68 18 126/66 98 Room Air 11/30/16 00:00 98.1 74 18 127/71 100 Room Air 11/29/16 20:31 78 129/78 11/29/16 20:00 97.7 71 18 116/68 95 Room Air Intake and Output 11/29/16 11/30/16 19:00 07:00 # Voids 2 2 Laboratory Tests 11/30/16 05:45: White Blood Count 8.7, Red Blood Count 2.67L, Hemoglobin 8.3L, Hematocrit 27.0L , Mean Corpuscular Volume 101H, Mean Corpuscular Hemoglobin 31.1H, Mean Corpuscular Hemoglobin Concent 30.8L, Red Cell Distribution Width 14.6, Platelet Count 355, Mean Platelet Volume 5.1L, Neutrophils (%) (Auto) 63.0, Lymphocytes (%) (Auto) 21.1, Monocytes (%) (Auto) 12.7H, Eosinophils (%) (Auto) 2.5, Basophils (%) (Auto) 0.8, Random Vancomycin Level 16.1 Height (Feet): 5 Height (Inches): 6.00 Weight (Pounds): 78 General Appearance: no apparent distress, obese EENT: PERRL/EOMI Neck: normal alignment Cardiovascular: normal rate Respiratory/Chest: lungs clear Abdomen: non tender, soft, no organomegaly Extremities: other - clean dressing r k nee 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
[2016-11-30] MEDS: Pericolace tab ORAL SCH (19:05)
--- NOTE | 2016-11-30 19:45 | Operative Note - Dictated ---
DATE OF OPERATION: 11/30/2016 PREOPERATIVE DIAGNOSIS: Right total knee arthroplasty. POSTOPERATIVE DIAGNOSIS: Right total knee arthroplasty. PROCEDURES: 1. Revision of right total knee arthroplasty tibial component (tibial insert). 2. Right knee arthrotomy and complete synovectomy of medial, lateral, and posterior compartment of the knee. 3. Irrigation and debridement, right knee. 4. Complex wound closure measuring 10 cm. SURGEON: Raymond Tinoco M.D. ANESTHESIA: General. INDICATION FOR PROCEDURE: The patient is a pleasant female with acute onset of right knee pain for the last two weeks. She has a history of end-stage renal disease. No previous issue with the right knee. She had elevated labs, positive Gram stain, and therefore, it was felt that she had acute periprosthetic infection. She elected to undergo one stage I & D and six weeks on intravenous antibiotics in hope to clear the infection. Possibly, a two-stage reconstruction was discussed with the patient. Additional complications related neurovascular damage, infection, risk of anesthesia, medical complications, DVT, PE, and mortality risk were all discussed. DESCRIPTION OF PROCEDURE: After informed consent was obtained, the patient was brought to the operating room and placed under general anesthesia. The patient had a right thigh tourniquet placed. Right leg was prepped and draped in a sterile manner. Time-out was performed. The previous skin incision was coaxed out. Medial and lateral subcutaneous flaps were created. A 15 mL of right knee aspirate was then sent off for cell count, Gram stain, and aerobic and anaerobic cultures. Medial parapatellar arthrotomy was performed. At this point, complete synovectomy in lateral patella and retropatellar space area was performed. The tibial insert was then removed. At this point, attention was turned to complete synovectomy in the medial and lateral compartments. All necrotic tissue was debrided. Once the complete synovectomy was performed, attention was turned towards the irrigation debridement point part. The wound was then soaked in Betadine and after several minutes, 12 liters of bacitracin irrigation was then used to irrigate the knee. At one point during the interrogation, another soaking with Betadine was performed. Once all that was done, the right knee was then draped sterilely. All the previous instruments were discarded with a fresh set of instruments. The 75 x 16 mm tibial insert was then placed with the locking mechanism. At this point, the arthrotomy was closed with #0 Prolene sutures. Subcutaneous tissue was closed with 2-0 Vicryl suture. Skin was closed with 3-0 Monocryl sutures and Dermabond. Tourniquet was deflated. The patient was awoken and taken to recovery room with stable vital signs. ESTIMATED BLOOD LOSS: 50 mL. COMPLICATIONS: None. SPECIMENS: Include: 1. Right knee aspirate. 2. Medial synovial tissue. 3. Lateral synovial tissue. IMPLANT: A tibial insert 16 x 75 Biomet. Raymond Tinoco M.D. DR: TANNER JOB#: [id number] CC: JESUS
[2016-11-30] MEDS ORDERED: Vancomycin 1 GM in D5W 275 ML IV SCH (21:00)
[2016-11-30] MEDS: Epogen (for ESRD on dialysis) SUBQ SCH (21:00)
[2016-11-30] MEDS: Norco 7.5mg/325mg tab ORAL PRN (21:06)
[2016-12-01] VITALS: BP 140/76
[2016-12-01] MEDS: Norco 7.5mg/325mg tab ORAL PRN ×5 (03:21→20:44)
[2016-12-01] MEDS: Morphine Sulfate 4mg/ml Inj IVP PRN (03:26)
[2016-12-01 04:00] VITALS: BP 145/76
[2016-12-01] MEDS ORDERED: Heparin Sod 1000 units/ml 10ml IV ONE (06:00)
[2016-12-01 07:29] LABS: BASOPHILS % (AUTO) 0.5 % (0.0-2.0); EOSINOPHILS % (AUTO) 0.1 % (0.0-3.0); LYMPHOCYTES % (AUTO) 11.5 % (20.0-45.0); MEAN CORPUSCULAR HEMOGLOBIN 31.5 PG (27.0-31.0); MEAN CORPUSCULAR HGB CONC 31.4 G/DL (32.0-36.0); MEAN CORPUSCULAR VOLUME 100 FL (80-99); MEAN PLATELET VOLUME 5.2 FL (6.5-10.1); MONOCYTES % (AUTO) 7.7 % (1.0-10.0); NEUTROPHILS % (AUTO) 80.3 % (45.0-75.0); PLATELET COUNT 384 K/UL (150-450); RED BLOOD COUNT 2.84 M/UL (4.20-5.40); RED CELL DISTRIBUTION WIDTH 14.4 % (11.6-14.8); WHITE BLOOD COUNT 12.2 K/UL (4.8-10.8)
[2016-12-01 08:00] VITALS: BP 130/68
[2016-12-01] MEDS: Acetaminophen 500mg (ES) tab ORAL SCH ×3 (08:49→17:31)
[2016-12-01] MEDS: Docusate 100mg cap ORAL SCH ×2 (08:49→17:29)
[2016-12-01] MEDS: Metoprolol Tartrate 50mg tab ORAL SCH ×2 (08:59→21:00)
[2016-12-01] MEDS: Pericolace tab ORAL SCH ×2 (08:59→17:29)
[2016-12-01 12:38] VITALS: BP 117/68
--- NOTE | 2016-12-01 13:04 | Infectious Diseases Prog Note ---
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 ESRD on HD Obesity Hypothyroidism Anemia VRE colonization P; Continue Vancomycin will f/u culture Subjective ROS Limited/Unobtainable: No Cardiovascular: Reports: no symptoms Gastrointestinal/Abdominal: Reports: no symptoms Genitourinary: Reports: no symptoms Musculoskeletal: Reports: other - R knee, had revision surgery yesterday, pain Allergies: Coded Allergies: AMOXICILLIN (Verified Allergy, Unknown, 11/24/16) CHOCOLATE FLAVOR (Verified Allergy, Unknown, 11/24/16) Objective Vital Signs Last 24 Hour Vital Signs Date Time Temp Pulse Resp B/P Pulse Ox O2 Delivery O2 Flow Rate FiO2 12/01/16 12:38 97.9 72 19 117/68 99 Room Air 72 12/01/16 08:59 69 145/76 12/01/16 08:00 97.5 74 18 130/68 100 Room Air 12/01/16 04:00 97.9 69 18 145/76 100 Room Air 12/01/16 00:00 97.6 67 18 140/76 100 Room Air 11/30/16 21:00 67 146/73 11/30/16 20:00 96.6 67 18 146/73 99 Room Air 11/30/16 16:01 97.3 76 19 154/74 99 Nasal Cannula 2.0 76 11/30/16 15:09 98.0 11/30/16 15:05 98.0 74 15 150/73 100 Nasal Cannula 3.0 11/30/16 14:50 75 15 159/73 100 Nasal Cannula 3.0 11/30/16 14:39 74 12 155/71 100 Nasal Cannula 3.0 11/30/16 14:33 174/82 11/30/16 14:25 73 16 174/82 100 Nasal Cannula 3.0 11/30/16 14:09 73 15 159/85 100 Nasal Cannula 3.0 11/30/16 14:05 71 11 164/85 100 Simple Mask 6.0 11/30/16 14:00 72 15 160/85 100 Simple Mask 6.0 11/30/16 13:56 97.3 67 22 177/92 100 Simple Mask 6.0 11/30/16 13:56 71 16 100 Height (Feet): 5 Height (Inches): 6.00 Weight (Pounds): 78 General Appearance: no acute distress Respiratory/Chest: lungs clear Cardiovascular: normal rate Abdomen: soft, non tender Extremities: other - R knee swlling Neurologic/Psychiatric: alert, oriented x 3, responsive Microbiology Date/Time Source Procedure Growth Status 11/28/16 13:50 Synovial Fluid Gram Stain - Final Resulted 11/28/16 13:50 Synovial Fluid Body Fluid Culture - Preliminary NO GROWTH AFTER 72 HOURS Resulted 11/30/16 13:00 Knee Right Gram Stain - Final Resulted 11/30/16 13:00 Knee Right Aerobic Culture Pending Resulted 11/30/16 13:00 Knee Right Anaerobic Culture Pending Resulted Laboratory Tests Test 12/01/16 05:00 White Blood Count 12.2 K/UL (4.8-10.8) H Red Blood Count 2.84 M/UL (4.20-5.40) L Hemoglobin 8.9 G/DL (12.0-16.0) L Hematocrit 28.4 % (37.0-47.0) L Mean Corpuscular Volume 100 FL (80-99) H Mean Corpuscular Hemoglobin 31.5 PG (27.0-31.0) H Mean Corpuscular Hemoglobin Concent 31.4 G/DL (32.0-36.0) L Red Cell Distribution Width 14.4 % (11.6-14.8) Platelet Count 384 K/UL (150-450) Mean Platelet Volume 5.2 FL (6.5-10.1) L Neutrophils (%) (Auto) 80.3 % (45.0-75.0) H Lymphocytes (%) (Auto) 11.5 % (20.0-45.0) L Monocytes (%) (Auto) 7.7 % (1.0-10.0) Eosinophils (%) (Auto) 0.1 % (0.0-3.0) Basophils (%) (Auto) 0.5 % (0.0-2.0) Current Medications Medications (Trade) Dose Ordered Sig/Adia Route PRN Reason Start Time Stop Time Status Last Admin Dose Admin Acetaminophen (Tylenol) 650 mg Q4H PRN ORAL Mild Pain/Temp > 100.5 11/24/16 20:00 12/24/16 19:59 11/29/16 19:38 Acetaminophen (Tylenol) 1,000 mg THREE TIMES A DAY ORAL 11/30/16 13:00 12/30/16 12:59 12/01/16 08:49 Acetaminophen/ Hydrocodone Bitart (Carmel 7.5/325) 1 ea Q4H PRN ORAL Mild Pain (Pain Scale 1-3) 11/30/16 12:15 12/07/16 12:14 12/01/16 09:48 Bisacodyl (Dulcolax) 5 mg DAILYPRN PRN ORAL Constipation 11/27/16 11:00 12/27/16 10:59 11/28/16 09:56 Docusate Sodium (Colace) 100 mg TWICE A DAY ORAL 11/26/16 09:00 12/26/16 08:59 12/01/16 08:49 Epoetin Sergio (Procrit (for ESRD on dialysis)) 10,000 units MON- SUBQ 11/30/16 21:00 12/30/16 20:59 Gabapentin 200 mg 200 mg QOD@2100 ORAL 12/01/16 21:00 12/31/16 20:59 Levothyroxine Sodium (Synthroid) 75 mcg DAILY@0630 ORAL 11/25/16 09:00 12/25/16 08:59 12/01/16 05:40 Magnesium Hydroxide (Mom) 30 ml DAILY PRN ORAL Constipation 11/30/16 12:15 12/30/16 12:14 Metoprolol Tartrate (Lopressor) 50 mg Q12HR ORAL 11/24/16 21:00 12/24/16 20:59 11/30/16 09:25 Morphine Sulfate (Morphine Sulfate) 1 mg Q4H PRN IVP Mild Pain (Pain Scale 1-3) 11/30/16 12:15 12/07/16 12:14 Morphine Sulfate (Morphine Sulfate) 2 mg Q4H PRN IVP Moderate Pain (Pain Scale 4-6) 11/30/16 12:15 12/07/16 12:14 12/01/16 08:59 Morphine Sulfate (Morphine Sulfate) 4 mg Q4H PRN IVP Severe Pain (Pain Scale 7-10) 11/30/16 12:15 12/07/16 12:14 12/01/16 03:26 Ondansetron HCl (Zofran) 4 mg EVERY 6 HOURS PRN IVP Nausea & Vomiting 11/30/16 12:15 12/30/16 12:14 Oxycodone HCl (Roxicodone) 5 mg Q1H PRN ORAL Breakthrough Pain 11/30/16 12:15 12/07/16 12:14 Ranitidine HCl (Zantac) 150 mg BEDTIME ORAL 11/25/16 21:00 12/25/16 20:59 11/30/16 21:06 Senna/Docusate Sodium (Olga-Colace) 1 ea TWICE A DAY ORAL 11/30/16 18:00 12/30/16 17:59 12/01/16 08:59 Sevelamer Carbonate (Renvela) 2,400 mg THREE TIMES A DAY ORAL 11/25/16 13:00 12/25/16 12:59 12/01/16 08:49 Sodium Chloride (Sodium Chloride 1000ml bag) 1,000 ml @ 500 mls/hr Q2H PRN IVLG sbp<90 during hd 12/01/16 06:00 12/01/16 23:59 Temazepam (Restoril) 7.5 mg HSPRN PRN ORAL Insomnia 11/30/16 12:15 12/07/16 12:14 Vancomycin HCl (Vanco rx to dose) 1 ea DAILY PRN MISC Per rx protocol 11/24/16 17:15 12/24/16 17:14 RADHA PALENCIA Dec 01, 2016 13:04
--- NOTE | 2016-12-01 13:26 | General Progress Note ---
Assessment/Plan Assessment/Plan IMPRESSION right knee swelling elevated CRP concern for joint infection ESRD anemia prior GIB hypothyroid s/p Incision and drainage PLAN pain control IV antibiotics per ID Ortho evaluation noted; continue medications HD per renal wound care cleared by ID will follow up post op impression, plan, and exam edited and reviewed in detail care discussed with RN Subjective Allergies: Coded Allergies: AMOXICILLIN (Verified Allergy, Unknown, 11/24/16) CHOCOLATE FLAVOR (Verified Allergy, Unknown, 11/24/16) Subjective care noted and reviewed with ortho knee pain on antibiotics underwent I and D Objective Last 24 Hour Vital Signs Date Time Temp Pulse Resp B/P Pulse Ox O2 Delivery O2 Flow Rate FiO2 12/01/16 12:38 97.9 72 19 117/68 99 Room Air 72 12/01/16 08:59 69 145/76 12/01/16 08:00 97.5 74 18 130/68 100 Room Air 12/01/16 04:00 97.9 69 18 145/76 100 Room Air 12/01/16 00:00 97.6 67 18 140/76 100 Room Air 11/30/16 21:00 67 146/73 11/30/16 20:00 96.6 67 18 146/73 99 Room Air 11/30/16 16:01 97.3 76 19 154/74 99 Nasal Cannula 2.0 76 11/30/16 15:09 98.0 11/30/16 15:05 98.0 74 15 150/73 100 Nasal Cannula 3.0 11/30/16 14:50 75 15 159/73 100 Nasal Cannula 3.0 11/30/16 14:39 74 12 155/71 100 Nasal Cannula 3.0 11/30/16 14:33 174/82 11/30/16 14:25 73 16 174/82 100 Nasal Cannula 3.0 11/30/16 14:09 73 15 159/85 100 Nasal Cannula 3.0 11/30/16 14:05 71 11 164/85 100 Simple Mask 6.0 11/30/16 14:00 72 15 160/85 100 Simple Mask 6.0 11/30/16 13:56 97.3 67 22 177/92 100 Simple Mask 6.0 11/30/16 13:56 71 16 100 Intake and Output 11/30/16 12/01/16 19:00 07:00 Intake Total 220 ml 360 ml Output Total 50 ml Balance 170 ml 360 ml Intake Oral 120 ml 360 ml IV Total 100 ml Estimated Blood Loss 50 ml # Voids 2 Laboratory Tests 12/01/16 05:00: White Blood Count 12.2H, Red Blood Count 2.84L, Hemoglobin 8.9L, Hematocrit 28.4L, Mean Corpuscular Volume 100H, Mean Corpuscular Hemoglobin 31.5H, Mean Corpuscular Hemoglobin Concent 31.4L, Red Cell Distribution Width 14.4, Platelet Count 384, Mean Platelet Volume 5.2L, Neutrophils (%) (Auto) 80.3H, Lymphocytes (%) (Auto) 11.5L, Monocytes (%) (Auto) 7.7, Eosinophils (%) (Auto) 0.1, Basophils (%) (Auto) 0.5 Height (Feet): 5 Height (Inches): 6.00 Weight (Pounds): 78 Objective WDWN NAD clear breath sounds bilaterally without rhonchi or wheeze [id number] without MRG NABS nontender no HSM no CCE nonfocal pain and erythema with reduced ROM of right knee- dressing in place APOLINAR PINA Dec 01, 2016 13:26
--- NOTE | 2016-12-01 15:17 | Nephrology Progress Note ---
Assessment/Plan Assessment 1) ESRD 2) R septic knee, s/p revision of arthroplasty + I&D 3) No CHF Plan: Will arrange HD tomorrow Will continue IV ATB's Will probably will trequire 6 week of treatment Subjective Subjective She is s/p I&D and revision of R knee arthroplasty, no chest pain or sob Objective Objective Last 24 Hour Vital Signs Date Time Temp Pulse Resp B/P Pulse Ox O2 Delivery O2 Flow Rate FiO2 12/01/16 12:38 97.9 72 19 117/68 99 Room Air 72 12/01/16 08:59 69 145/76 12/01/16 08:00 97.5 74 18 130/68 100 Room Air 12/01/16 04:00 97.9 69 18 145/76 100 Room Air 12/01/16 00:00 97.6 67 18 140/76 100 Room Air 11/30/16 21:00 67 146/73 11/30/16 20:00 96.6 67 18 146/73 99 Room Air 11/30/16 16:01 97.3 76 19 154/74 99 Nasal Cannula 2.0 76 11/30/16 15:09 98.0 Intake and Output 11/30/16 12/01/16 19:00 07:00 Intake Total 220 ml 360 ml Output Total 50 ml Balance 170 ml 360 ml Intake Oral 120 ml 360 ml IV Total 100 ml Estimated Blood Loss 50 ml # Voids 2 Laboratory Tests 12/01/16 05:00: White Blood Count 12.2H, Red Blood Count 2.84L, Hemoglobin 8.9L, Hematocrit 28.4L, Mean Corpuscular Volume 100H, Mean Corpuscular Hemoglobin 31.5H, Mean Corpuscular Hemoglobin Concent 31.4L, Red Cell Distribution Width 14.4, Platelet Count 384, Mean Platelet Volume 5.2L, Neutrophils (%) (Auto) 80.3H, Lymphocytes (%) (Auto) 11.5L, Monocytes (%) (Auto) 7.7, Eosinophils (%) (Auto) 0.1, Basophils (%) (Auto) 0.5 Height (Feet): 5 Height (Inches): 6.00 Weight (Pounds): 78 General Appearance: WD/WN EENT: PERRL/EOMI, TMs normal Cardiovascular: normal rate, regular rhythm, no JVD Respiratory/Chest: lungs clear Abdomen: normal bowel sounds, non tender, soft Extremities: normal range of motion Neurologic: blowing weasand II-XII grossly normal, no motor/sensory deficits RADHA GREY Dec 01, 2016 15:17
[2016-12-01 16:00] VITALS: BP 123/60
[2016-12-01 20:00] VITALS: BP 125/66
[2016-12-02] VITALS: BP 130/70
[2016-12-02] MEDS: Norco 7.5mg/325mg tab ORAL PRN ×4 (03:39→17:39)
[2016-12-02 04:12] VITALS: BP 122/67
[2016-12-02 07:20] LABS: MEAN CORPUSCULAR HEMOGLOBIN 31.3 PG (27.0-31.0); MEAN CORPUSCULAR HGB CONC 30.8 G/DL (32.0-36.0); MEAN CORPUSCULAR VOLUME 101 FL (80-99); MEAN PLATELET VOLUME 5.3 FL (6.5-10.1); PLATELET COUNT 314 K/UL (150-450); RED BLOOD COUNT 2.46 M/UL (4.20-5.40); RED CELL DISTRIBUTION WIDTH 14.2 % (11.6-14.8); WHITE BLOOD COUNT 11.4 K/UL (4.8-10.8)
--- NOTE | 2016-12-02 07:28 | Nephrology Progress Note ---
Assessment/Plan Plan Septic Rt. Knee s/p I+D. On IV Abx. ESRD HD TTS. Check alleged blood flow problems with HD staff. Subjective Subjective No new c/o. State she had problematic blood flow last HD. Objective Objective Last 24 Hour Vital Signs Date Time Temp Pulse Resp B/P Pulse Ox O2 Delivery O2 Flow Rate FiO2 12/02/16 04:38 97.5 12/02/16 04:12 97.5 73 20 122/67 100 Nasal Cannula 73 12/02/16 00:00 97.8 73 20 130/70 100 Nasal Cannula 73 12/01/16 23:35 98 Nasal Cannula 2.0 28 12/01/16 23:35 Nasal Cannula 2.0 28 12/01/16 21:00 60 114/63 12/01/16 20:00 97.9 79 20 125/66 100 Nasal Cannula 79 12/01/16 16:00 97.7 100 19 123/60 92 Room Air 19 12/01/16 12:38 97.9 72 19 117/68 99 Room Air 72 12/01/16 08:59 69 145/76 12/01/16 08:00 97.5 74 18 130/68 100 Room Air Intake and Output 12/01/16 12/02/16 19:00 07:00 Intake Total 480 ml Output Total 1600 ml Balance -1120 ml Intake Oral 480 ml Hemodialysis UF 1600 ml # Voids 2 Laboratory Tests 12/02/16 05:45: White Blood Count [Pending], Red Blood Count [Pending], Hemoglobin [Pending], Hematocrit [Pending], Mean Corpuscular Volume [Pending], Mean Corpuscular Hemoglobin [Pending], Mean Corpuscular Hemoglobin Concent [Pending], Red Cell Distribution Width [Pending], Platelet Count [Pending], Mean Platelet Volume [ Pending], Neutrophils (%) (Auto) [Pending], Lymphocytes (%) (Auto) [Pending], Monocytes (%) (Auto) [Pending], Eosinophils (%) (Auto) [Pending], Basophils (%) (Auto) [Pending] Height (Feet): 5 Height (Inches): 6.00 Weight (Pounds): 216 Objective CV RR Lungs CTA Abd SNT. BS + E Rt knee sl. tender. GEORGE AVF + bruit. SHECHTER,PAGIEL Dec 02, 2016 07:28
[2016-12-02 08:00] VITALS: BP 103/59
--- NOTE | 2016-12-02 08:39 | General Progress Note ---
Assessment/Plan Assessment/Plan IMPRESSION right knee swelling elevated CRP concern for joint infection ESRD anemia prior GIB hypothyroid s/p Incision and drainage PLAN pain control IV antibiotics per ID- ordered for outpatinet Ortho evaluation noted; continue medications HD per renal wound care cleared by ID transfuse and dc today after transfusion will follow up post op impression, plan, and exam edited and reviewed in detail care discussed with RN Subjective Allergies: Coded Allergies: AMOXICILLIN (Verified Allergy, Unknown, 11/24/16) CHOCOLATE FLAVOR (Verified Allergy, Unknown, 11/24/16) Subjective care noted and reviewed with ortho knee pain on antibiotics underwent I and D anemic Objective Last 24 Hour Vital Signs Date Time Temp Pulse Resp B/P Pulse Ox O2 Delivery O2 Flow Rate FiO2 12/02/16 08:00 97.0 77 19 103/59 100 Nasal Cannula 2.0 77 12/02/16 04:38 97.5 12/02/16 04:12 97.5 73 20 122/67 100 Nasal Cannula 73 12/02/16 00:00 97.8 73 20 130/70 100 Nasal Cannula 73 12/01/16 23:35 98 Nasal Cannula 2.0 28 12/01/16 23:35 Nasal Cannula 2.0 28 12/01/16 21:00 60 114/63 12/01/16 20:00 97.9 79 20 125/66 100 Nasal Cannula 79 12/01/16 16:00 97.7 100 19 123/60 92 Room Air 19 12/01/16 12:38 97.9 72 19 117/68 99 Room Air 72 12/01/16 08:59 69 145/76 Intake and Output 12/01/16 12/02/16 19:00 07:00 Intake Total 480 ml Output Total 1600 ml Balance -1120 ml Intake Oral 480 ml Hemodialysis UF 1600 ml # Voids 2 Laboratory Tests 12/02/16 05:45: White Blood Count 11.4H, Red Blood Count 2.46L, Hemoglobin 7.7L, Hematocrit 25.0L, Mean Corpuscular Volume 101H, Mean Corpuscular Hemoglobin 31.3H, Mean Corpuscular Hemoglobin Concent 30.8L, Red Cell Distribution Width 14.2, Platelet Count 314, Mean Platelet Volume 5.3L, Neutrophils (%) (Auto) , Lymphocytes (%) (Auto) , Monocytes (%) (Auto) , Eosinophils (%) (Auto) , Basophils (%) (Auto) , Neutrophils % (Manual) [Pending], Lymphocytes % (Manual) [Pending], Platelet Estimate [Pending], Platelet Morphology [Pending] Height (Feet): 5 Height (Inches): 6.00 Weight (Pounds): 216 Objective WDWN NAD clear breath sounds bilaterally without rhonchi or wheeze [id number] without MRG NABS nontender no HSM no CCE nonfocal pain and erythema with reduced ROM of right knee- dressing in place APOLINAR PINA Dec 02, 2016 08:39
[2016-12-02] MEDS: Acetaminophen 500mg (ES) tab ORAL SCH ×3 (09:00→17:39)
[2016-12-02] MEDS: Pericolace tab ORAL SCH ×2 (09:00→17:39)
[2016-12-02] MEDS: Docusate 100mg cap ORAL SCH ×2 (09:01→17:38)
[2016-12-02] MEDS: Metoprolol Tartrate 50mg tab ORAL SCH ×2 (09:01→21:00)
[2016-12-02 09:39] LABS: ANISOCYTOSIS 1+; BAND NEUTROPHILS % (MANUAL) 0 % (0-8); BASOPHILS % (MANUAL) 0 % (0-2); EOSINOPHILS % (MANUAL) 0 % (0-3); HYPOCHROMASIA 1+; LYMPHOCYTES % (MANUAL) 25 % (20-45); NEUTROPHILS % (MANUAL) 68 % (45-75); PLATELET ESTIMATE ADEQUATE; PLATELET MORPHOLOGY NORMAL; TOTAL CELLS COUNTED 100
[2016-12-02 09:42] LABS: MACROCYTES 1+
--- NOTE | 2016-12-02 10:33 | Infectious Diseases Prog Note ---
Assessment/Plan Assessment/Plan antibiotics : vancomycin iv A 1. right knee possible septic arthritis r/o TKA infection 2. s/p right TKA revision 3. renal failure 4. HTN 5. rectal VRE colonization P 1. continue vancomycin iv 39 more days after dialysis 2. d/c planned 3. d/w Dr Ochoa Subjective Constitutional: Denies: chills, fever Respiratory: Denies: dry cough, shortness of breath Gastrointestinal/Abdominal: Denies: diarrhea, nausea, vomiting Musculoskeletal: Reports: pain Allergies: Coded Allergies: AMOXICILLIN (Verified Allergy, Unknown, 11/24/16) CHOCOLATE FLAVOR (Verified Allergy, Unknown, 11/24/16) Objective Vital Signs Last 24 Hour Vital Signs Date Time Temp Pulse Resp B/P Pulse Ox O2 Delivery O2 Flow Rate FiO2 12/02/16 09:01 77 103/59 12/02/16 08:00 97.0 77 19 103/59 100 Nasal Cannula 2.0 77 12/02/16 04:38 97.5 12/02/16 04:12 97.5 73 20 122/67 100 Nasal Cannula 73 12/02/16 00:00 97.8 73 20 130/70 100 Nasal Cannula 73 12/01/16 23:35 98 Nasal Cannula 2.0 28 12/01/16 23:35 Nasal Cannula 2.0 28 12/01/16 21:00 60 114/63 12/01/16 20:00 97.9 79 20 125/66 100 Nasal Cannula 79 12/01/16 16:00 97.7 100 19 123/60 92 Room Air 19 12/01/16 12:38 97.9 72 19 117/68 99 Room Air 72 Height (Feet): 5 Height (Inches): 6.00 Weight (Pounds): 216 Respiratory/Chest: lungs clear Cardiovascular: normal rate, regular rhythm, no gallop/murmur Abdomen: soft, non tender Extremities: no edema, other - right knee in dressings Microbiology Date/Time Source Procedure Growth Status 11/30/16 13:00 Knee Right Gram Stain - Final Resulted 11/30/16 13:00 Knee Right Aerobic Culture Pending Resulted 11/30/16 13:00 Knee Right Anaerobic Culture Pending Resulted Laboratory Tests Test 12/02/16 05:45 White Blood Count 11.4 K/UL (4.8-10.8) H Red Blood Count 2.46 M/UL (4.20-5.40) L Hemoglobin 7.7 G/DL (12.0-16.0) L Hematocrit 25.0 % (37.0-47.0) L Mean Corpuscular Volume 101 FL (80-99) H Mean Corpuscular Hemoglobin 31.3 PG (27.0-31.0) H Mean Corpuscular Hemoglobin Concent 30.8 G/DL (32.0-36.0) L Red Cell Distribution Width 14.2 % (11.6-14.8) Platelet Count 314 K/UL (150-450) Mean Platelet Volume 5.3 FL (6.5-10.1) L Neutrophils (%) (Auto) % (45.0-75.0) Lymphocytes (%) (Auto) % (20.0-45.0) Monocytes (%) (Auto) % (1.0-10.0) Eosinophils (%) (Auto) % (0.0-3.0) Basophils (%) (Auto) % (0.0-2.0) Differential Total Cells Counted 100 Neutrophils % (Manual) 68 % (45-75) Lymphocytes % (Manual) 25 % (20-45) Monocytes % (Manual) 7 % (1-10) Eosinophils % (Manual) 0 % (0-3) Basophils % (Manual) 0 % (0-2) Band Neutrophils 0 % (0-8) Platelet Estimate Adequate Platelet Morphology Normal Hypochromasia 1+ Anisocytosis 1+ Macrocytosis 1+ PASTORA GAR Dec 02, 2016 10:33
[2016-12-02 11:50] VITALS: BP 104/54
[2016-12-02 16:00] VITALS: BP 90/51
[2016-12-02 20:00] VITALS: BP 96/56
[2016-12-02] MEDS: Epogen (for ESRD on dialysis) SUBQ SCH (21:47)
--- NOTE | 2016-12-02 22:45 | Progress Note ---
DATE: 12/02/2016 SUBJECTIVE: The patient is postoperative day #2 status post I and D and exchange of the tibial insert for the right infected knee. She is now here. The patient reports that they have been trying to get a PICC line in her, which failed. She reports that she is having little bit less pain in the right knee. She ambulated well with physical therapy. OBJECTIVE: Examination shows dressing looks clean, dry and intact. There is a swelling along the right knee. There is some pain along the medial joint line. Posterior calf is soft. ASSESSMENT: Status post incision and drainage, and exchange of tibial insert for periprosthetic right knee infection. DISCUSSION: At this point, she needs to get a PICC line in place and 6 weeks of IV antibiotics. I discussed with her that it looks like she is rehabbing well. We will have to continue to monitor and see how she does from clinical point of view. If she has recurrent swelling and pain and continued elevation of her ESR and C-reactive protein, then ultimately we will proceed with a 2-stage reconstruction and reimplantation. I will see the patient back as an outpatient and I will see the patient in the office in 2 weeks' time for regular wound care. In terms of DVT, she is under the care of medical doctor. She is at increased risk for DVT given her histories. She always has increased risk of bleeding and wound complications as well. Therefore, I will leave the decision to whether do a prophylactic anticoagulant up to the PMD. I discussed with her the signs and symptoms to monitor for DVT, which she is familiar with. Raymond Tinoco M.D. DR: RAMA JOB#: [id number] CC:
[2016-12-03] VITALS: BP 100/58
[2016-12-03 04:00] VITALS: BP 104/62
[2016-12-03] MEDS ORDERED: Heparin Sod 1000 units/ml 10ml IV SCH (07:30)
[2016-12-03 07:54] LABS: BASOPHILS % (AUTO) 1.2 % (0.0-2.0); EOSINOPHILS % (AUTO) 3.2 % (0.0-3.0); MEAN CORPUSCULAR HEMOGLOBIN 32.2 PG (27.0-31.0); MEAN CORPUSCULAR HGB CONC 31.5 G/DL (32.0-36.0); MEAN CORPUSCULAR VOLUME 102 FL (80-99); MEAN PLATELET VOLUME 5.5 FL (6.5-10.1); MONOCYTES % (AUTO) 8.6 % (1.0-10.0); PLATELET COUNT 306 K/UL (150-450); RED CELL DISTRIBUTION WIDTH 15.2 % (11.6-14.8); WHITE BLOOD COUNT 9.5 K/UL (4.8-10.8)
[2016-12-03] MEDS: Metoprolol Tartrate 50mg tab ORAL SCH (08:12)
[2016-12-03] MEDS: Docusate 100mg cap ORAL SCH (08:12)
[2016-12-03] MEDS: Pericolace tab ORAL SCH (08:12)
[2016-12-03] MEDS: Acetaminophen 500mg (ES) tab ORAL SCH ×2 (08:13→11:54)
[2016-12-03 08:17] VITALS: BP 108/62
--- NOTE | 2016-12-03 08:20 | General Progress Note ---
Assessment/Plan Assessment/Plan IMPRESSION right knee swelling elevated CRP concern for joint infection ESRD anemia prior GIB hypothyroid s/p Incision and drainage PLAN pain control IV antibiotics per ID Ortho evaluation noted; continue medications HD per renal wound care cleared by ID transfuse and dc today after transfusion will follow at SNF for short term rehab and PT impression, plan, and exam edited and reviewed in detail care discussed with RN Subjective Allergies: Coded Allergies: AMOXICILLIN (Verified Allergy, Unknown, 11/24/16) CHOCOLATE FLAVOR (Verified Allergy, Unknown, 11/24/16) Subjective care noted and reviewed with ortho knee pain present on antibiotics underwent I and D anemic and needs transfusion Objective Last 24 Hour Vital Signs Date Time Temp Pulse Resp B/P Pulse Ox O2 Delivery O2 Flow Rate FiO2 12/03/16 08:17 98.2 76 20 108/62 100 Nasal Cannula 2.0 12/03/16 04:00 98.1 71 20 104/62 100 Room Air 12/03/16 00:00 97.0 72 18 100/58 100 12/02/16 21:00 76 96/56 12/02/16 20:15 Nasal Cannula 2.0 28 12/02/16 20:15 99 Nasal Cannula 2.0 28 12/02/16 20:00 97.7 76 20 96/56 100 Nasal Cannula 2.0 12/02/16 16:00 97.5 65 16 90/51 100 Nasal Cannula 2.0 12/02/16 11:50 97.5 60 20 104/54 99 Nasal Cannula 2.0 60 12/02/16 09:01 77 103/59 Intake and Output 12/02/16 12/03/16 19:00 07:00 Intake Total 450 ml 490 ml Balance 450 ml 490 ml Intake Oral 450 ml 490 ml # Voids 2 6 Laboratory Tests 12/03/16 05:20: White Blood Count 9.5, Red Blood Count 2.50L, Hemoglobin 8.0L, Hematocrit 25.5L , Mean Corpuscular Volume 102H, Mean Corpuscular Hemoglobin 32.2H, Mean Corpuscular Hemoglobin Concent 31.5L, Red Cell Distribution Width 15.2H, Platelet Count 306, Mean Platelet Volume 5.5L, Neutrophils (%) (Auto) 63.0, Lymphocytes (%) (Auto) 24.0, Monocytes (%) (Auto) 8.6, Eosinophils (%) (Auto) 3.2H, Basophils (%) (Auto) 1.2, Random Vancomycin Level [Pending] Height (Feet): 5 Height (Inches): 6.00 Weight (Pounds): 216 Objective WDWN NAD clear breath sounds bilaterally without rhonchi or wheeze [id number] without MRG NABS nontender no HSM no CCE nonfocal pain and erythema with reduced ROM of right knee- dressing in place APOLINAR PINA Dec 03, 2016 08:20
[2016-12-03] MEDS ORDERED: ACETAMINOP160 MG/54 ORAL (08:42)
[2016-12-03] MEDS ORDERED: COLACE100 MG ORAL (08:42)
[2016-12-03] MEDS ORDERED: BISACODYL5 MG ORAL (08:42)
[2016-12-03] MEDS ORDERED: EPOGEN20000 UNI1 SUBQ (08:43)
[2016-12-03] MEDS ORDERED: NEURONTIN100 MG ORAL (08:43)
[2016-12-03] MEDS ORDERED: LEVOTHYROXINE75 MCG ORAL (08:44)
[2016-12-03] MEDS ORDERED: NORCO 7.5-3251 EACH ORAL (08:44)
[2016-12-03] MEDS ORDERED: METOPROLOL TART50 MG ORAL (08:44)
[2016-12-03] MEDS ORDERED: RENVELA2.4 GM ORAL (08:45)
[2016-12-03] MEDS ORDERED: MORPHINE 22 MG/1 ML IV (08:45)
[2016-12-03] MEDS ORDERED: ZOFRAN 4 MG4 MG/2 ML IV (08:45)
[2016-12-03] MEDS ORDERED: MILK OF MA400 MG/51 ORAL (08:45)
[2016-12-03] MEDS ORDERED: TEMAZEPAM7.5 MG ORAL (08:46)
[2016-12-03] MEDS ORDERED: RANITIDINE HCL150 MG ORAL (08:47)
[2016-12-03] MEDS ORDERED: VANCOMYCIN1 GM/2502 IVPB ×2 (08:48→08:49)
--- NOTE | 2016-12-03 11:14 | Infectious Diseases Prog Note ---
Assessment/Plan Assessment/Plan antibiotics : vancomycin iv A 1. right knee possible septic arthritis r/o TKA infection 2. s/p exchange of right tibial insert 3. renal failure 4. HTN 5. rectal VRE colonization P 1. continue vancomycin iv 38 more days after dialysis 2. d/c planned Subjective Constitutional: Denies: chills, fever Respiratory: Denies: dry cough, shortness of breath Gastrointestinal/Abdominal: Denies: diarrhea, nausea, vomiting Musculoskeletal: Reports: pain - in right knee Allergies: Coded Allergies: AMOXICILLIN (Verified Allergy, Unknown, 11/24/16) CHOCOLATE FLAVOR (Verified Allergy, Unknown, 11/24/16) Objective Vital Signs Last 24 Hour Vital Signs Date Time Temp Pulse Resp B/P Pulse Ox O2 Delivery O2 Flow Rate FiO2 12/03/16 08:17 98.2 76 20 108/62 100 Nasal Cannula 2.0 12/03/16 04:00 98.1 71 20 104/62 100 Room Air 12/03/16 00:00 97.0 72 18 100/58 100 12/02/16 21:00 76 96/56 12/02/16 20:15 Nasal Cannula 2.0 28 12/02/16 20:15 99 Nasal Cannula 2.0 28 12/02/16 20:00 97.7 76 20 96/56 100 Nasal Cannula 2.0 12/02/16 16:00 97.5 65 16 90/51 100 Nasal Cannula 2.0 12/02/16 11:50 97.5 60 20 104/54 99 Nasal Cannula 2.0 60 Height (Feet): 5 Height (Inches): 6.00 Weight (Pounds): 216 Respiratory/Chest: lungs clear Cardiovascular: normal rate, regular rhythm, no gallop/murmur Abdomen: soft, non tender Extremities: no edema, other - right knee in dressings Microbiology Date/Time Source Procedure Growth Status 11/30/16 13:00 Knee Right Gram Stain - Final Resulted 11/30/16 13:00 Knee Right Aerobic Culture - Preliminary NO GROWTH AFTER 72 HOURS Resulted 11/30/16 13:00 Knee Right Anaerobic Culture - Preliminary NO GROWTH AFTER 72 HOURS Resulted Laboratory Tests Test 12/03/16 05:20 White Blood Count 9.5 K/UL (4.8-10.8) Red Blood Count 2.50 M/UL (4.20-5.40) L Hemoglobin 8.0 G/DL (12.0-16.0) L Hematocrit 25.5 % (37.0-47.0) L Mean Corpuscular Volume 102 FL (80-99) H Mean Corpuscular Hemoglobin 32.2 PG (27.0-31.0) H Mean Corpuscular Hemoglobin Concent 31.5 G/DL (32.0-36.0) L Red Cell Distribution Width 15.2 % (11.6-14.8) H Platelet Count 306 K/UL (150-450) Mean Platelet Volume 5.5 FL (6.5-10.1) L Neutrophils (%) (Auto) 63.0 % (45.0-75.0) Lymphocytes (%) (Auto) 24.0 % (20.0-45.0) Monocytes (%) (Auto) 8.6 % (1.0-10.0) Eosinophils (%) (Auto) 3.2 % (0.0-3.0) H Basophils (%) (Auto) 1.2 % (0.0-2.0) Random Vancomycin Level 28.5 ug/mL PASTORA GAR Dec 03, 2016 11:14
[2016-12-03 11:31] VITALS: BP 109/67
[2016-12-03 12:00] LABS: CALCIUM 8.7 mg/dL (8.6-10.2); CREATININE 8.5 mg/dL (0.5-0.9); GLOMERULAR FILTRATION RATE 5.7 mL/min (>60); POTASSIUM 5.5 mEQ/L (3.4-4.9)
--- NOTE | 2016-12-03 13:00 | Nephrology Progress Note ---
Assessment/Plan Plan Septic Rt. Knee s/p I+D. On IV Abx. ESRD HD TTS. Check alleged blood flow problems with HD staff. Currently on HD. No flow issues. Subjective Subjective No new c/o. On HD now + getting 2 units PRBCs transfused. Objective Objective Last 24 Hour Vital Signs Date Time Temp Pulse Resp B/P Pulse Ox O2 Delivery O2 Flow Rate FiO2 12/03/16 11:31 98.4 71 20 109/67 100 Nasal Cannula 2.0 12/03/16 10:32 98.2 12/03/16 08:17 98.2 76 20 108/62 100 Nasal Cannula 2.0 12/03/16 06:51 99 Nasal Cannula 2.0 28 12/03/16 06:50 Nasal Cannula 2.0 28 12/03/16 04:00 98.1 71 20 104/62 100 Room Air 12/03/16 00:00 97.0 72 18 100/58 100 12/02/16 21:00 76 96/56 12/02/16 20:15 Nasal Cannula 2.0 28 12/02/16 20:15 99 Nasal Cannula 2.0 28 12/02/16 20:00 97.7 76 20 96/56 100 Nasal Cannula 2.0 12/02/16 16:00 97.5 65 16 90/51 100 Nasal Cannula 2.0 Intake and Output 12/02/16 12/03/16 19:00 07:00 Intake Total 450 ml 490 ml Balance 450 ml 490 ml Intake Oral 450 ml 490 ml # Voids 2 6 Laboratory Tests 12/03/16 05:20: White Blood Count 9.5, Red Blood Count 2.50L, Hemoglobin 8.0L, Hematocrit 25.5L , Mean Corpuscular Volume 102H, Mean Corpuscular Hemoglobin 32.2H, Mean Corpuscular Hemoglobin Concent 31.5L, Red Cell Distribution Width 15.2H, Platelet Count 306, Mean Platelet Volume 5.5L, Neutrophils (%) (Auto) 63.0, Lymphocytes (%) (Auto) 24.0, Monocytes (%) (Auto) 8.6, Eosinophils (%) (Auto) 3.2H, Basophils (%) (Auto) 1.2, Random Vancomycin Level 28.5 12/03/16 11:32: Sodium Level 131L, Potassium Level 5.5H, Chloride Level 93L, Carbon Dioxide Level 26, Anion Gap 12, Blood Urea Nitrogen 59H, Creatinine 8.5H, Estimat Glomerular Filtration Rate 5.7, Glucose Level 102, Calcium Level 8.7 Height (Feet): 5 Height (Inches): 6.00 Weight (Pounds): 216 Objective CV RR Lungs CTA Abd SNT. BS + E Rt knee sl. tender. GEORGE AVF + bruit. JALEEL QUINONES Dec 03, 2016 13:00
[2016-12-03 16:04] VITALS: BP 106/60
[2016-12-03] MEDS ORDERED: Tubing Blood Filter IV ONE (16:14)
--- NOTE | 2016-12-06 08:58 | Discharge Summary ---
Discharge Summary Hospital Course Date of Admission Nov 24, 2016 at 14:50 Date of Discharge Dec 03, 2016 at 16:15 Admitting Diagnosis obs, right knee swelling HPI Marie Eli is a 66 year old female who was admitted on Nov 24, 2016 at 14: 50 for Right Knee Swelling Hospital Course dc summary #[id number] Discharge Medications Continued Medications: Acetaminophen* (Acetaminophen*) 160 Mg/5 Ml Solution 650 MG ORAL Q6H PRN for Mild Pain/Temp > 100.5, ML Bisacodyl* (Dulcolax*) 5 Mg Tablet.dr 5 MG ORAL DAILY PRN for Constipation, #10 TAB 0 Refills Docusate Sodium* (Colace*) 100 Mg Capsule 100 MG ORAL DAILY, CAP Epoetin Sergio (Epogen) 20,000 Unit/2 Ml Vial 78961 UNIT SUBQ PRN for MON-WED-MON, VIAL Gabapentin* (Neurontin*) 100 Mg Capsule 200 MG ORAL THREE TIMES A DAY PRN for EVERY OTHER DAY 2100, CAP Hydrocodone Bit/Acetaminophen 7.5-325* ([place] 7.5-325*) 1 Each Tablet 1 TAB ORAL Q4H PRN for For Pain, #30 TAB 0 Refills Levothyroxine Sodium* (Levothyroxine Sodium*) 75 Mcg Tablet 75 MCG ORAL BEFORE BREAKFAST, TAB Take in the morning on an empty stomach, at least 30 minutes before food. Magnesium Hydroxide* (Milk Of Magnesia*) 400 Mg/5 Ml Oral.susp 30 ML ORAL DAILY PRN for Constipation, ML Metoprolol Tartrate* (Metoprolol Tartrate*) 50 Mg Tablet 50 MG ORAL EVERY 12 HOURS, TAB 0 Refills Morphine Sulfate* (Morphine Sulfate*) 2 Mg/1 Ml Cartridge 2 MG IV Q4HR PRN for Severe Pain (Pain Scale 7-10), EA Ondansetron* (Zofran*) 4 Mg/2 Ml Vial 4 MG IV Q6H PRN for Nausea & Vomiting, VIAL Ranitidine Hcl* (Zantac*) 150 Mg Tablet 150 MG ORAL QHS, TAB Sevelamer Carbonate* (Renvela*) 2.4 Gm Powd.pack Unknown Dose ORAL THREE TIMES A DAY, PACK Sevelamer Carbonate* (Renvela*) 2.4 Gm Powd.pack 2400 MG ORAL THREE TIMES A DAY, PACK Temazepam (Temazepam*) 7.5 Mg Capsule 7.5 MG ORAL BEDTIME PRN for SLEEP AID, #30 CAP 0 Refills Vancomycin Hcl/D5w (Vancomycin-D5w 1 G/250 Ml) 1 Gm/250 Ml Plast..bag 0 IVPB Q24H PRN for PHARM TO DOSE X 5 WEEKS, BAG Vancomycin Hcl/D5w (Vancomycin-D5w 1 G/250 Ml) 1 Gm/250 Ml Plast..bag 0 IVPB, BAG Discontinued Medications: Apixaban (Eliquis) 2.5 Mg Tablet 2.5 MG PO BID, TAB Famotidine (Famotidine) 20 Mg Tablet 20 MG ORAL TWICE A DAY, #60 TAB 0 Refills Metoprolol Tartrate* (Metoprolol Tartrate*) 50 Mg Tablet 50 MG ORAL EVERY 12 HOURS, TAB 0 Refills Tramadol Hcl* (Ultram*) 50 Mg Tablet 50 MG ORAL Q6H PRN for For Pain, #30 TAB 0 Refills Discharge Condition Upon Discharge: stable Discharge Disposition Patient was discharged to SNF/Subacute Facility(03) Discharge Diagnoses: Discharge Instructions Discharge Instructions Special Instructions I have been assigned to complete a D/C Summary on this account. I was not involved in the patient management Bria Crow NP (Vanchtein) Dec 06, 2016 08:58
--- NOTE | 2016-12-07 02:15 | Discharge Summary 2 SIG ---
DATE OF ADMISSION: 11/24/2016 DATE OF DISCHARGE: 12/03/2016 REASON FOR ADMISSION: 66-year-old female with past medical history of diabetes, hypertension, and end-stage renal disease, on hemodialysis, presented with increased right leg swelling and discomfort. The patient had a prior history of right [place]. The patient reported subjective fevers. Edema to the right knee was subsequently increasing with non-relenting pain. In the emergency department, the patient was afebrile. No leukocytosis. Anemic: hemoglobin -9.5 and hematocrit -30.8. The patient had elevated ESR -113, CRP-29, BUN -18, and creatinine-5.2 consistent with end-stage renal disease. Blood pressure -156/78. Pulse oximetry was stable on the room air. X-ray of the knee revealed joint effusion and total knee arthroplasty. Venous duplex revealed no evidence of DVT in the right lower extremity. The patient was admitted for further management. ADMITTING DIAGNOSES: 1. Right knee effusion. 2. Possible right knee joint infection. 3. End-stage renal disease, on hemodialysis. 4. Hypertension. 5. Anemia 6. Elevated inflammatory markers. . HOSPITAL COURSE: The patient was admitted. ID, ortho and nephrology consults were requested. Orthopedic surgeon seen the patient and ordered aspiration of the right knee with subsequent fluid exam. Orthopedic surgeon recommended to transfer the patient for a tertiary center such as [facility] for likely resection arthroplasty with a cement antibiotic spacer followed by six weeks of IV antibiotics. The patient subsequently undergone right knee aspiration under ultrasound guidance on 11/28/2016 yielding 70 mL of cloudy yellow fluid. Fluid culture was negative. Another orthopedic surgeon seen the patient and concluded that the patient had a likely right knee periprosthetic infection. He discussed with the patient different options, including irrigation and debridement and excision of tibial insert. Risks, limitation, expectations, and complications were discussed in detail with the patient by surgeon. Surgeon also stated that if the patient will have recurrent infection, she ultimately may require two-stage resection arthroplasty followed by reimplantation. The patient agreed to surgery. The patient subsequently undergone on 11/30/2016 revision of right total knee arthroplasty tibial component and irrigation and debridement of the right knee with exchange of the tibial insert for periprosthetic right knee infection. Course of recovery was uneventful. ID followed. The patient was on empiric antibiotics. PICC line was placed prior to discharge. The patient will require a total six weeks of IV antibiotics for presumed septic arthritis right knee. The patient needs to follow up with the orthopedic surgeon as outpatient in two weeks. Wound care provided and advised for wound care at the [facility] facility. ESR and CRP needs to be monitored in the facility. The patient was explained by surgeon that if she will have continued elevation of inflammatory markers, the patient will ultimately need to proceed with two-stage reconstruction and reimplantation. In terms of the DVT, the patient had increased risk for bleeding due to the history of GI bleeding. The patient was not placed on any DVT prophylaxis at this time, however, signs and symptoms to monitor for DVT were explained to the patient in details. The patient was anemic and required one unit of packed red blood cell transfusion for hemoglobin- 7.7 and hematocrit- 25. Upon discharge, hemoglobin- 8 and hematocrit -25.5. No leukocytosis.Blood pressure was managed with beta-christopher and was stable. Bowel regimen instituted. The patient was working with physical and occupational therapists. HD was provided as per metallurgical technician recommendations. Renal parameters and electrolytes were closely monitored and nephrotoxics were avoided. The patient was discharged for short-term to [facility] facility for IV antibiotics and rehabilitation program with PT/OT. DISCHARGE DIAGNOSES: 1. Right knee effusion 2. Status post aspiration, 3. Likely septic arthritis, right knee. 4. Status post revision of right total knee arthroplasty, irrigation and debridement, and exchange of the tibial insert for periprosthetic right infection. 5. Elevated inflammatory markers (ESR and CRP). 6. Hypertension. 7. End-stage renal disease, requiring dialysis. 8. Anemia requiring blood transfusion. 9. History of gastrointestinal bleeding. DISCHARGE MEDICATIONS: See medication reconciliation list. The patient will need total six weeks of IV antibiotics for presumed septic arthritis. DISCHARGE INSTRUCTIONS: The patient was discharged to [facility] facility. FOLLOWUP: Follow up with the medical doctor at the facility. Follow up with the surgeon in two weeks. Arya Ochoa M.D. I have been assigned to dictate discharge summary on this account and I was not involved in the patient's management. Bria Crow N.P. (Vanchtein) DR: JD JOB#: [id number] CC: JESUS
== END 2016-12-03 16:15 | DRG 485 ==
LOC: EMR 11:55 → EDBEDREQ 14:41 → OBSVTOIN 14:50 → 4W 14:50 → EDBEDREQ 15:10
PROC: 5A1D60Z (ICD-10-PCS; 2016-11-25)
PROC: 0S9C3ZZ Drainage of Right Knee Joint, Percutaneous Approach (ICD-10-PCS; 2016-11-28)
PROC: 30233N1 Transfusion of Nonautologous Red Blood Cells into Peripheral Vein, Percutaneous Approach (ICD-10-PCS; 2016-11-28)
PROC: 0SPC09Z Removal of Liner from Right Knee Joint, Open Approach (ICD-10-PCS; 2016-11-30)
PROC: 0SBC0ZZ Excision of Right Knee Joint, Open Approach (ICD-10-PCS; principal; 2016-11-30 11:00)
PROC: 0SUV09Z Supplement Right Knee Joint, Tibial Surface with Liner, Open Approach (ICD-10-PCS; principal; 2016-11-30 11:00)
DX: M00.861 Arthritis due to other bacteria, right knee (principal); N18.6 End stage renal disease; I12.0 Hypertensive chronic kidney disease with stage 5 chronic kidney disease or end stage renal disease; Z96.651 Presence of right artificial knee joint; E11.22 Type 2 diabetes mellitus with diabetic chronic kidney disease; Z99.2 Dependence on renal dialysis; Z87.891 Personal history of nicotine dependence; Z88.0 Allergy status to penicillin
CPT/HCPCS: 36415; 76882; 80048; 80053; 80202; 85007; 85025; 85651; 86140; 86705; 86709; 86803; 86850; 86870; 86900; 86901; 86904; 86920; 87070; 87075; 87081; 87205; 87340; 89051; 89060; 93971; 94003; 94150; 94760; C9399; J2250; J2405

== ENCOUNTER 2017-09-04 11:43 | Inpatient (IN) | payer MEDICARE, BC ==
[~2017-09-04] VITALS: Ht 167.6 cm; Wt 88.9 kg
[~2017-09-04 11:43] MED LIST: ACETAMINOP160 MG/54 ORAL; BISACODYL5 MG ORAL; COLACE100 MG ORAL; ELIQUIS2.5 MG PO; EPOGEN20000 UNI1 SUBQ; FAMOTIDINE20 MG ORAL; LEVOTHYROXINE75 MCG ORAL; METOPROLOL TART50 MG ORAL; MILK OF MA400 MG/51 ORAL; MORPHINE 22 MG/1 ML IV; NEURONTIN100 MG ORAL; NORCO 7.5-3251 EACH ORAL; RANITIDINE HCL150 MG ORAL; RENVELA2.4 GM ORAL; TEMAZEPAM7.5 MG ORAL; TRAMADOL HCL50 MG ORAL; VANCOMYCIN1 GM/2502 IVPB; ZOFRAN 4 MG4 MG/2 ML IV
[2017-09-04 13:00] VITALS: BP 102/64
--- NOTE | 2017-09-04 14:09 | History & Physical ---
History and Physical History & Physicial Vital Signs -Extended Height: 66 inches Weight: 188 pounds Temperature: 98.6 degrees F ( oral) Pulse rate: 72 /min Pulse rhythm: regular Respirations: 12 /min O2 Sat: 96% Blood Pressure: 104/99 mm Hg Calculations Body Mass Index: 30.45 Body Surface Area (m2): 1.95 History of Present Illness Hx. Source: patient Primary complaint: FOLLOW UP Duration: 3 months Trend of sx: worsening Fever: none Treatment: see medication list Additional HPI: 67 Years Old Female patient presents today for her follow up appointment. Patient significant amount of right knee pain and swelling and drainage at incision site. she notes drainage for the past 3 months. she has been having fevers. she notes warmth. Patient has not taking antibiotics on initial evaluation. she has been dressing it only and has noted ongoing drainage. Patient seen in the hospital and admitted for inpatient care and evaluation. Active Medications: ELIQUIS 2.5 MG ORAL TABLET (APIXABAN) Take one tablet daily LEVOTHYROXINE SODIUM 125 MCG ORAL TABLET (LEVOTHYROXINE SODIUM) 1 tab qd FAMOTIDINE 20 MG ORAL TABLET (FAMOTIDINE) 1 tab po bid METOPROLOL TARTRATE 50 MG ORAL TABLET (METOPROLOL TARTRATE) 1 tab bid TRAMADOL HCL 50 MG ORAL TABLET (TRAMADOL HCL) 1 TAB BY MOUTH EVERY 6HRS NEEDED FOR MODERATE TO SEVERE PAIN *NTE 400MGHRS* Current Allergies (reviewed today): PENICILLIN (PENICILLIN V POTASSIUM) (Mild) Past History Past Medical History: DVT left arm and left leg Hypertension hx carpal tunnel syndrome acute kidney failure Hypothyroidism Hospitalized - due to a seizure Surgical History (reviewed - no changes required): dialysis M_W_F carpal tunnle release left hand left knee replacement right knee replacement thyroidectomy tubaligation Cholecystectomy fistula left arm tonsillectomy Family History (reviewed - no changes required): Both parents Mother-heart disease Father-prostate cancer Social History (reviewed - no changes required): single; 2 children;lives alone ; retired Risk Factors: Smoked Tobacco Use: Former smoker Cigarettes: Yes -- 1/2 pack(s) per day, Years smoked: 5-10 Caffeine use: 2 drinks per day Alcohol use: no Review of Systems General: see HPI Physical Exam General Appearance: well nourished, well hydrated, no acute distress Respiratory Respiratory Effort: no intercostal retractions or use of accessory muscles Palpation: normal fremitus Auscultation: no rales, rhonchi, or wheezes Cardiovascular Palpation: no thrill or palpable murmurs, no displacement of PMI Auscultation: S1, S2, no murmur, rub, or gallop Peripheral Circulation: mild leg swelling Musculoskeletal RLE: knee swelling warmth and flactuant Problems Added: Knee pain, right (ICD-719.46) (YCU99-C32.561) Renal failure, chronic (ICD-585.9) (KZN42-C73.9) Hypertension (ICD-401.9) (ITO33-V37) DVT (ICD-453.40) (ZIZ30-J75.90) Hx of knee replacement (ICD-V43.65) (JDK82-A12.659) Assessment possible septic knee hypertension ho DVT ESRD right knee pain and drainage ho Knee replacement Plan admit check cultures ortho and ID evaluation may need surgical evaluaiton CT knee cannot do MRI discussed with patient in detail Arya Ochoa MD September 04, 2017 14:09
[2017-09-04 16:00] VITALS: BP 99/56
[2017-09-04 16:20] VITALS: BP 115/67
[2017-09-04 19:03] LABS: HEMATOCRIT 23.8 % (37.0-47.0); HEMOGLOBIN 7.5 G/DL (12.0-16.0); MEAN CORPUSCULAR VOLUME 93 FL (80-99); PLATELET COUNT 430 K/UL (150-450); RED BLOOD COUNT 2.55 M/UL (4.20-5.40); RED CELL DISTRIBUTION WIDTH 16.5 % (11.6-14.8)
[2017-09-04 19:10] LABS: ALANINE AMINOTRANSFERASE 12 U/L (12-78); ALBUMIN 2.2 G/DL (3.4-5.0); ALBUMIN/GLOBULIN RATIO 0.4 (1.0-2.7); ALKALINE PHOSPHATASE 44 U/L (46-116); ANION GAP 11 mmol/L (5-15); ASPARTATE AMINO TRANSFERASE 13 U/L (15-37); BILIRUBIN,TOTAL 0.3 MG/DL (0.2-1.0); BLOOD UREA NITROGEN 37 mg/dL (7-18); CALCIUM 8.6 MG/DL (8.5-10.1); CARBON DIOXIDE 28 MMOL/L (21-32); CHLORIDE 97 MMOL/L (98-107); CREATININE 7.6 MG/DL (0.55-1.30); POTASSIUM 3.8 MMOL/L (3.5-5.1); SODIUM 135 MMOL/L (136-145)
[2017-09-04 20:44] VITALS: BP 117/62
[2017-09-04] MEDS: Eliquis 2.5mg tablet ORAL SCH (21:00)
[2017-09-04] MEDS ORDERED: Vancomycin 1.5 GM/D5W 250ML IVPB SCH (21:00)
[2017-09-04] MEDS: traMADol 50mg tab ORAL PRN (21:31)
[2017-09-04] MEDS: Metoprolol Tartrate 50mg tab ORAL SCH (21:31)
[2017-09-05] VITALS: BP 114/65
[2017-09-05] MEDS ORDERED: Piperacillin/Tazobactam 3.375 GM in D5W 110 ML IVPB SCH ×2
--- NOTE | 2017-09-05 00:15 | Consultation ---
DATE OF CONSULTATION: 09/04/2017 ORTHOPEDIC CONSULTATION CONSULTING PHYSICIAN: Raymond Tinoco M.D. CHIEF COMPLAINT: Right knee pain. HISTORY OF PRESENT ILLNESS: The patient is a well-known female to me. Approximately a year ago, she underwent a total knee arthroplasty, was done in [place], subsequently came here with what appeared to be acute periprosthetic infection, who underwent I and D and exchange of the tibial liner, with six weeks of IV antibiotics. She reports that approximately last six months she has had swelling and drainage along the right knee. She was readmitted for septic knee. Orthopedic consultation obtained for further care and recommendation. PAST MEDICAL HISTORY: Reviewed from intake chart. PAST SURGICAL HISTORY: Reviewed from intake chart. MEDICATIONS: Reviewed from intake chart. PHYSICAL EXAMINATION: EXTREMITIES: Shows a well-healed incision. There is a small area of drainage, which looks to be somewhat purulent. Posterior calf is soft. There is bogginess along the knee joint itself. The implant looks no obvious loosening. ASSESSMENT: Right periprosthetic knee infection, chronic. DISCUSSION: At this point, I think she failed the 1 stage excision and placement of antibiotic spacer. At this point, she unfortunately needs the implant removed and some cement spacer in place, six weeks of IV antibiotics. Then subsequently she clears the infection, consideration for revision total knee arthroplasty. At this point, unfortunately I am leaving on Monday for a vacation for two weeks. Does have a discussion with her primary care physician Dr. Ochoa, see what the next best treatment is, potentially transfer to another tertiary care center for this type of surgery. Raymond Tinoco M.D. DR: ARIEL JOB#: [id number] CC:
[2017-09-05 04:00] VITALS: BP 116/63
[2017-09-05] MEDS: Levothyroxine 125mcg tab ORAL SCH (05:58)
[2017-09-05] MEDS: Clindamycin 600mg 50 ML IV SCH ×3 (05:58→12:29)
--- NOTE | 2017-09-05 07:52 | General Progress Note ---
Assessment/Plan Assessment/Plan septic knee hypertension ho DVT ESRD right knee pain and drainage ho Knee replacement PLAN HD per renal ID evaluation ortho noted will assess for surgery here or need to transfer will discuss need for SNF vs home iv antibiotics impression, plan, and exam edited and reviewed in detail care discussed with RN Subjective Allergies: Coded Allergies: AMOXICILLIN (Verified Allergy, Unknown, 11/24/16) CHOCOLATE FLAVOR (Verified Allergy, Unknown, 11/24/16) Subjective d/w ortho removal of hardware needed will need prolonged antibiotics Objective Last 24 Hour Vital Signs Date Time Temp Pulse Resp B/P (MAP) Pulse Ox O2 Delivery O2 Flow Rate FiO2 09/05/17 04:00 99.5 80 18 116/63 95 99.5 09/05/17 01:00 Room Air 09/05/17 00:00 100.8 77 17 114/65 97 100.8 09/04/17 22:00 Room Air 09/04/17 21:31 81 117/62 09/04/17 20:44 98.4 81 18 117/62 93 98.4 09/04/17 16:20 115/67 09/04/17 16:00 98.1 70 20 99/56 97 Room Air 98.1 09/04/17 13:00 98.1 66 20 102/64 99 Room Air 98.1 Intake and Output 09/04/17 09/05/17 19:00 07:00 Intake Total 200 ml Balance 200 ml Intake Oral 200 ml Laboratory Tests 09/04/17 18:45: White Blood Count 9.0, Red Blood Count 2.55L, Hemoglobin 7.5L, Hematocrit 23.8L , Mean Corpuscular Volume 93, Mean Corpuscular Hemoglobin 29.4, Mean Corpuscular Hemoglobin Concent 31.5L, Red Cell Distribution Width 16.5H, Platelet Count 430, Mean Platelet Volume 4.9L, Neutrophils (%) (Auto) , Lymphocytes (%) (Auto) , Monocytes (%) (Auto) , Eosinophils (%) (Auto) , Basophils (%) (Auto) , Differential Total Cells Counted 100, Neutrophils % ( Manual) 75, Lymphocytes % (Manual) 18L, Monocytes % (Manual) 6, Eosinophils % ( Manual) 1, Basophils % (Manual) 0, Band Neutrophils 0, Platelet Estimate Adequate, Platelet Morphology Normal, Hypochromasia 1+, Anisocytosis 1+, Erythrocyte Sedimentation Rate 127H, Sodium Level 135L, Potassium Level 3.8, Chloride Level 97L, Carbon Dioxide Level 28, Anion Gap 11, Blood Urea Nitrogen 37H, Creatinine 7.6H, Estimat Glomerular Filtration Rate 6.4, Glucose Level 158H , Calcium Level 8.6, Total Bilirubin 0.3, Aspartate Amino Transf (AST/SGOT) 13L , Alanine Aminotransferase (ALT/SGPT) 12, Alkaline Phosphatase 44L, C-Reactive Protein, Quantitative 19.2H, Total Protein 8.3H, Albumin 2.2L, Globulin 6.1, Albumin/Globulin Ratio 0.4L, Random Vancomycin Level < 2.0 Height (Feet): 5 Height (Inches): 6.00 Weight (Pounds): 188 Objective WDWN NAD clear breath sounds bilaterally without rhonchi or wheeze [id number] without RG; noted systolic murmur NABS nontender no HSM no CC right knee warmth and drainage noted nonfocal Arya Ochoa MD September 05, 2017 07:52
[2017-09-05] MEDS: Sertraline 50mg tab ORAL SCH (08:52)
[2017-09-05] MEDS: Eliquis 2.5mg tablet ORAL SCH (08:52)
[2017-09-05] MEDS: Metoprolol Tartrate 50mg tab ORAL SCH ×2 (08:53→22:37)
[2017-09-05 09:00] VITALS: BP 100/60
--- NOTE | 2017-09-05 09:29 | Diagnostic Imaging Report ---
Indication: Swelling Technique: No IV contrast, reason not stated. Spiral acquisitions obtained through the right knee Multiplanar reconstructions were generated. Total dose length product 392.09 mGycm. CTDIvol(s) 15.26 mGy. Radiation dose was minimized using automated exposure control Comparison: Plain radiograph dated 02/03/2017 Findings: There is a right knee prosthesis, streak artifact from which throws off extensive streak artifact which renders exam essentially nondiagnostic. Cephalad to the prosthesis, there is what appears to be material within the suprapatellar bursa which is higher than fluid attenuation. At the level of the joint, there is what appears to be a diffuse large joint effusion which is likewise hyperattenuating. There is also soft tissue swelling in the prepatellar region and in the subcutaneous fat anterior to the knee in general. No definite periprosthetic lucency demonstrated. There is some chronic appearing irregularity of the patella which may be on the basis of degenerative change or old trauma. Note that on the previous plain radiograph, there is also evidence of extensive joint effusion or swelling. Impression: Very limited exam due to streak artifact from knee prosthesis obscuring most of the images. Prosthesis appears intact, but plain radiographs may better characterize Marked distention of the joint by hyperattenuating material. Note that on 11/28/2016, patient had a joint aspiration of 70 mL of cloudy fluid. This finding therefore most likely represents a knee effusion with either proteinaceous or bloody fluid. Further assessment with ultrasound should be considered No evidence of acute bony trauma There is evidence of some anterior soft tissue cellulitis or edema The CT scanner at [facility] is accredited by the [employer] and the scans are performed using protocols designed to limit radiation exposure to as low as reasonably achievable to attain images of sufficient resolution adequate for diagnostic evaluation.
--- NOTE | 2017-09-05 11:45 | Progress Note ---
DATE: 09/05/2017 SUBJECTIVE: No issues overnight. The patient still has drainage of the right knee. OBJECTIVE: Examination shows there is still moderate drainage along the right knee. Posterior calf is soft. Neurovascular exam is normal. ASSESSMENT: Right periprosthetic infection. DISCUSSION: What we are going to do is proceed with the 2-stage reconstruction with knee implant, place an antibiotic spacer, 6 weeks of IV antibiotics unless she has infections subsequently in the future, revision total knee arthroplasty. The risks, limitations, expectations, complications of the procedure were discussed in detail. All questions were addressed. We are going to medically optimize her preparation for surgery tomorrow. If she is not stable or not cleared for surgery, then we may have to reconsider postponing her surgery, transfer her care. Raymond Tinoco M.D. DR: Skyla JOB#: [id number] CC:
[2017-09-05 12:00] VITALS: BP 100/64
--- NOTE | 2017-09-05 12:00 | Consultation ---
DATE OF CONSULTATION: 09/05/2017 NEPHROLOGY CONSULTATION CONSULTING PHYSICIAN: Nate Peters M.D. ATTENDING PHYSICIAN: Arya Ochoa M.D. REASON FOR CONSULTATION: This is a dialysis patient. HISTORY OF PRESENT ILLNESS: This is a well-known 67-year-old female, who is on dialysis every Monday, Monday, and Monday in [facility]. The patient has been seen by me during her previous admissions to this hospital. She was admitted for worsening right knee degenerative joint disease with right knee effusion. I am asked to see the patient for her dialysis. PAST MEDICAL HISTORY: 1. End-stage renal failure, on dialysis. 2. Degenerative joint disease. 3. Hypertensive cardiovascular disease. 4. History of carpal tunnel syndrome. 5. Hypothyroidism. 6. Status post right knee replacement. 7. Status post cholecystectomy. 8. Status post DVT. MEDICATIONS: Eliquis, Synthroid, famotidine, metoprolol, and tramadol. ALLERGIES: Penicillin. FAMILY HISTORY: Unremarkable. HABITS: Nonsmoker and nondrinker. There is no history of illicit drug abuse. REVIEW OF SYSTEMS: HEENT: Hearing and eyesight are normal. ENDOCRINE: No history of diabetes, thyroid, or adrenal problems. RESPIRATORY: She denies shortness of breath, cough, or hemoptysis. CARDIOVASCULAR: She denies chest pain or palpitations. GASTROINTESTINAL: No history of hematochezia, melena, hematemesis, diarrhea, or constipation. NEUROLOGICAL: No history of stroke, syncope, or Parkinson disease. PHYSICAL EXAMINATION: GENERAL: This is an elderly female, who is in no acute distress. VITAL SIGNS: Blood pressure is 116/63, pulse 80 regular, respirations 18, and temperature 99.5. HEENT: The head is normocephalic and atraumatic. Pupils are equal, round, and reactive to light and accommodation consensually. NECK: Supple. Trachea midline. There is no lymphadenopathy or thyromegaly. LUNGS: Clear to auscultation and percussion. HEART: Regular rate and rhythm without rubs, murmurs, or gallops. ABDOMEN: Soft. Bowel sounds were active. EXTREMITIES: No clubbing, cyanosis, or edema. She has extreme degenerative changes in both knees, but more pronounced in the right knee, which is exquisitely tender to touch and with reduced range of motion. There is impression of right knee effusion. She has left upper arm AV fistula. LABORATORY AND ANCILLARY DATA: Hematocrit 23.8 and WBC 9000. Serum chemistry yesterday sodium 135, potassium 3.8, BUN 37, and creatinine 7.6. ASSESSMENT: 1. Right knee effusion. 2. End-stage renal failure, on dialysis. 3. Degenerative joint disease. 4. Hypertensive cardiovascular disease. 5. History of carpal tunnel syndrome. 6. Hypothyroidism. 7. Status post right knee replacement. 8. Status post cholecystectomy. 9. Status post DVT. PLAN: 1. Hemodialysis Monday, Monday, and Monday, done already last night. 2. Continue home medications. 3. Erythropoietin. Thank you, Dr. Ochoa, for letting me participate in the care of this patient. Nate Peters M.D. DR: LEXUS/ALMA JOB#: [id number] CC: JESUS
--- NOTE | 2017-09-05 12:15 | Anethesia Preoperative Eval ---
Anesthesia Pre-op PMH/ROS General Date of Evaluation: September 05, 2017 Time of Evaluation: 12:02 Anesthesiologist: Mario ASA Score: ASA 3 Mallampati Score Class I : Soft palate, uvula, fauces, pillars visible Class II: Soft palate, uvula, fauces visible Class III: Soft palate, base of uvula visible Class IV: Only hard plate visible Mallampati Classification: Class II Surgeon: Earnest Diagnosis: R septic knee Surgical Procedure: Revision of R knee arthroplasty Anesthesia History: none Family History: no anesthesia problems Allergies: Coded Allergies: AMOXICILLIN (Verified Allergy, Unknown, 11/24/16) CHOCOLATE FLAVOR (Verified Allergy, Unknown, 11/24/16) Medications: see eMAR Past Medical History Cardiovascular: Reports: HTN; Denies: CAD, [place], valve dz, arrhythmia, other Pulmonary: Denies: asthma, COPD, [place], other Gastrointestinal/Genitourinary: Reports: GERD, ESRD - on HD; Denies: CRI, other Neurologic/Psychiatric: Reports: depression/anxiety; Denies: dementia, CVA, TIA, other Endocrine: Reports: DM, hypothyroidism - s/p thyroidectomy; Denies: steroids, other HEENT: Denies: cataract (L), cataract (R), glaucoma, [place] (L), [place] (R), other Hematology/Immune: Reports: anemia - severe anemia of chronic d-s; Denies: DVT, bleeding disorder, other Musculoskeletal/Integumentary: Reports: DJD Other: other PMH Narrative: as above PSxH Narrative: Bilateral knee replacement, L functional R infected Anesthesia Pre-op Phys. Exam Physician Exam Last Vital Signs Date Time Temp Pulse Resp B/P (MAP) Pulse Ox O2 Delivery O2 Flow Rate FiO2 09/05/17 08:53 80 116/63 09/05/17 04:00 99.5 18 95 99.5 09/05/17 01:00 Room Air Constitutional: NAD Neurologic: CN 2-12 intact Cardiovascular: RRR, no M/R/G Respiratory: CTA Gastrointestinal: S/NT/ND Airway Exam Mallampati Score: Class III MO: limited Neck: short ROM: limited Teeth: missing Dentures: no upper, no lower Anesthesia Pre-op A/P Labs Hematology Test 09/04/17 18:45 White Blood Count 9.0 K/UL (4.8-10.8) Red Blood Count 2.55 M/UL (4.20-5.40) L Hemoglobin 7.5 G/DL (12.0-16.0) L Hematocrit 23.8 % (37.0-47.0) L Mean Corpuscular Volume 93 FL (80-99) Mean Corpuscular Hemoglobin 29.4 PG (27.0-31.0) Mean Corpuscular Hemoglobin Concent 31.5 G/DL (32.0-36.0) L Red Cell Distribution Width 16.5 % (11.6-14.8) H Platelet Count 430 K/UL (150-450) Mean Platelet Volume 4.9 FL (6.5-10.1) L Neutrophils (%) (Auto) % (45.0-75.0) Lymphocytes (%) (Auto) % (20.0-45.0) Monocytes (%) (Auto) % (1.0-10.0) Eosinophils (%) (Auto) % (0.0-3.0) Basophils (%) (Auto) % (0.0-2.0) Differential Total Cells Counted 100 Neutrophils % (Manual) 75 % (45-75) Lymphocytes % (Manual) 18 % (20-45) L Monocytes % (Manual) 6 % (1-10) Eosinophils % (Manual) 1 % (0-3) Basophils % (Manual) 0 % (0-2) Band Neutrophils 0 % (0-8) Platelet Estimate Adequate Platelet Morphology Normal Hypochromasia 1+ Anisocytosis 1+ Erythrocyte Sedimentation Rate 127 MM/HR (0-30) H Chemistry Test 09/04/17 18:45 Sodium Level 135 MMOL/L (136-145) L Potassium Level 3.8 MMOL/L (3.5-5.1) Chloride Level 97 MMOL/L (98-107) L Carbon Dioxide Level 28 MMOL/L (21-32) Anion Gap 11 mmol/L (5-15) Blood Urea Nitrogen 37 mg/dL (7-18) H Creatinine 7.6 MG/DL (0.55-1.30) H Estimat Glomerular Filtration Rate 6.4 mL/min (>60) Glucose Level 158 MG/DL (74-106) H Calcium Level 8.6 MG/DL (8.5-10.1) Total Bilirubin 0.3 MG/DL (0.2-1.0) Aspartate Amino Transf (AST/SGOT) 13 U/L (15-37) L Alanine Aminotransferase (ALT/SGPT) 12 U/L (12-78) Alkaline Phosphatase 44 U/L (46-116) L C-Reactive Protein, Quantitative 19.2 mg/dL (0.00-0.90) H Total Protein 8.3 G/DL (6.4-8.2) H Albumin 2.2 G/DL (3.4-5.0) L Globulin 6.1 g/dL Albumin/Globulin Ratio 0.4 (1.0-2.7) L Risk Assessment & Plan Assessment: ASA 3. Patient scheduled for revision of R knee arthroplasty with removal of infected hardware. Considering preexisting condition she will need some additional workup: type and screen for at least 3 units of PRBC, with preoperative transfusion, cardiology consult with 2D ECHO, possible stress test for cardiac clearance. She also needs reliable I/V access, considering her need for long antibiotic treatment PICC line place by radiology would be the best choice. Case will be discussed with primary physician. Plan: GA with ETT Pre-Antibiotics Drug: as scheduled Goldy Martin MD September 05, 2017 12:15
[2017-09-05] MEDS: traMADol 50mg tab ORAL PRN (12:30)
[2017-09-05] MEDS ORDERED: Lidocaine 1% Plain 30 ml INJ PRN (12:45)
[2017-09-05] MEDS ORDERED: Heparin 2000 units/Ns 1000ml INJ PRN (12:45)
[2017-09-05] MEDS ORDERED: cefTRIAXone 1 GM in D5W 55 ML IVPB SCH (14:00)
--- NOTE | 2017-09-05 17:00 | Consultation ---
DATE OF CONSULTATION: 09/05/2017 INFECTIOUS DISEASE CONSULTATION This consult is for coverage of Dr. Hooks. CONSULTING PHYSICIAN: Daron Henson M.D. PRIMARY ATTENDING PHYSICIAN: Arya Ochoa M.D. REASON FOR CONSULT: Right knee prosthetic knee septic arthritis. HISTORY OF PRESENT ILLNESS: This is a 67-year-old female admitted yesterday complaining of pain, discharge, and swelling of right knee and she had subjective fever and had fever of 100.8 degrees in the hospital. The patient had history of knee replacement in 01/2016. That procedure was done in [place]. In 2017, the patient was admitted to [facility] with infection in the right knee. She had a limited procedure with incision and drainage and exchange of tibia insert for periprosthetic infection. After this surgery also had problems as mentioned. She got six weeks of IV antibiotic for osteomyelitis. PAST MEDICAL HISTORY: End-stage renal disease, the patient is on hemodialysis. The patient has carpal tunnel syndrome, DVT of the left arm and leg, has history of right knee and left knee replacement, has a history of thyroidectomy, tubal ligation, cholecystectomy, left arm fistula placement, tonsillectomy, hypothyroidism and anemia. MEDICATIONS: Epogen, sodium chloride, amlodipine, sertraline, levothyroxine, clindamycin, vancomycin, Renvela and tramadol. ALLERGIES: Allergic to amoxicillin and , but tolerated ceftriaxone before. SOCIAL HISTORY: Single, has 2 grownup children. No history of alcohol, drug abuse, or smoking. FAMILY HISTORY: Father had prostate cancer and mother had heart problem. REVIEW OF SYSTEMS: Positive for pain, swelling, limitation of movement in the right knee, and has tiny discharge from the wound. PHYSICAL EXAMINATION: GENERAL APPEARANCE: No acute distress. VITAL SIGNS: Temperature 99.5 degrees, T-max 100.8 degrees, pulse 80, and blood pressure 116/63. HEAD AND NECK: Oral lesion. HEART: S1 and S2. Regular. LUNGS: Clear. ABDOMEN: Soft and nontender. EXTREMITIES: No edema. She has a scar of surgery in both knees, has effusion, swelling in the right knee. There is a small wound in the knee area with minimal amount of discharge, has shunt, has an AV fistula in the left arm. NEUROLOGIC: Awake, alert, and oriented x3. LABORATORY AND DIAGNOSTIC DATA: On Radiology, CT scan of the knee was very limited because of artifact prosthesis. There was evidence of anterior soft tissue cellulitis or edema. Labs, WBC 9000, hemoglobin 7.5, hematocrit 23.8, and platelets is 430. Sodium 135, potassium 3.8, chloride 97, bicarbonate 28, BUN 37, and creatinine 7.6. IMPRESSION: Right knee prosthetic knee septic arthritis. The patient had failed to respond to treatment with limited surgery on antibiotic in the past, had seen by in their orthopedic doctor that wants to remove the prosthesis and put cement. She has severe anemia, hypothyroidism, and history of penicillin allergy, but has no allergic reaction to ceftriaxone in the past. RECOMMENDATION: We will discontinue clindamycin. We will continue intravenous vancomycin. We will start on ceftriaxone. At the end of my exam, I thank Dr. Ochoa for involving me in the care of this patient. Daron Henson M.D. DR: BHARTI JOB#: [id number] CC: JESUS
[2017-09-05] MEDS ORDERED: Heparin Sod 1000 units/ml 10ml IV PRN (17:15)
--- NOTE | 2017-09-05 17:28 | Diagnostic Imaging Report ---
Indications: Needs long-term IV access Technique: Case was discussed with Drs. Ochoa and Chi, who indicated need for a PICC despite history of chronic renal failure with attendant risk of loss of potential access. Risks, including but not limited demonstrated the vein with potential loss of dialysis access, hemorrhage, infection discussed with patient, questions answered. She indicated willingness to proceed Ultrasound confirms patent compressible right brachial and basilic veins. Total sterile technique, including sterile probe cover and sterile gel, hat, mask,, sterile gown, large sterile drape, and preparation with 2% chlorhexidine utilized. Local anesthesia with 1% lidocaine. Under real-time ultrasound guidance, multiple venipunctures attempted, initially resulting in inability to pass a guidewire centrally. Ultimately, the brachial vein was successfully punctured, with successful 0.018 guidewire under direct fluoroscopy, which was used to determine appropriate catheter length, exchange for 5 Congolese peel-away sheath. 5 Congolese Bard dual-lumen power PICC cut to 40 cm. It was inserted through the peel-away sheath. However, it would not pass centrally, so was exchanged for a single lumen 4 Congolese PICC Peel-away sheath and guidewire removed. Catheter fixed to the skin. Both catheter ports aspirated and flushed. Patient tolerated procedure well, without immediate complication. Digital radiograph documents satisfactory catheter tip position, at the cavoatrial junction. Total fluoroscopy time 3.1 minutes. Total dose area product 50 dGycm2 Impression: Successful placement of single lumen right brachial vein PICC under sonographic and fluoroscopic guidance, as described above.
[2017-09-05] MEDS ORDERED: Metoprolol Succinate XL 50mg tab ORAL SCH (18:00)
[2017-09-05 18:06] VITALS: BP 104/63
--- NOTE | 2017-09-05 18:21 | Cardiology Report ---
APPROVED REPORT EXAM: Two-dimensional and M-mode echocardiogram with Doppler and color Doppler. INDICATION Surgery clearance M-Mode DIMENSIONS IVSd1.3 (0.7-1.1cm)Left Atrium (MM)3.7 (1.6-4.0cm) LVDd5.1 (3.5-5.6cm)Aortic Root3.0 (2.0-3.7cm) PWd1.2 (0.7-1.1cm)Aortic Cusp Exc.1.8 (1.5-2.0cm) LVDs3.5 (2.5-4.0cm) PWs1.3 cm Normal left ventricular chamber size, systolic function and wall motion. Left ventricular ejection fraction estimated to be 60 %. Mild left ventricular hypertrophy by 2-D. Small posterior pericardial effusion. Moderate left atrial enlargement. Right cardiac chamber sizes are within normal limits. Focal aortic valve sclerosis with adequate cusp excursion. Thickened mitral valve leaflets with normal excursion. Mitral annulus and aortic root calcification. Normal pulmonic valve structure. Normal tricuspid valve structure. IVC at normal size with physiologic collapse. A color flow and spectral Doppler study was performed and revealed: Trace aortic regurgitation. Mild mitral regurgitation. Mitral inflow velocities indicates possible pseudo normalization pattern implying moderately elevated left atrial pressure (Grade II). Trace to mild tricuspid regurgitation. Tricuspid systolic velocities suggests peak right ventricular systolic pressure of 26 mmHg. Pulmonic regurgitation present.
--- NOTE | 2017-09-05 19:45 | Consultation ---
DATE OF CONSULTATION: 09/05/2017 CARDIOLOGY CONSULTATION CONSULTING PHYSICIAN: Marcelo Vera M.D. REQUESTING PHYSICIAN: Arya Ochoa M.D. REASON FOR CONSULTATION: Preoperative cardiovascular evaluation for orthopedic surgery. HISTORY OF PRESENT ILLNESS: This is a 67-year-old female. She was admitted to the hospital yesterday with increasing pain, swelling, and discharge from her right knee. She is status post right total knee replacement in January 2016 and was noted to have an infection of that prosthesis in 2017. She did have limited incision and drainage and exchange of the tibial insert at that time. She received 6 weeks of antibiotic subsequently for osteomyelitis. At this time, the patient has planned to undergo repeat orthopedic surgery for removal of infected prosthesis and possible cementing procedure. The patient denies any history of exertional chest pain or prior history of heart attack. She used to get her care at [place] and notes that twice she has had a cardiac catheterization and both times, she was told that she did not have any blockages. She did not have any stent procedures performed. She has a history of hypertension that she notes has been controlled on her medications. She denies any leg swelling or shortness of breath. No orthopnea since being on regular dialysis sessions. The patient does have a history of clots in her left arm and is on anticoagulation chronically. PAST MEDICAL HISTORY: 1. End-stage renal disease, on hemodialysis. 2. Hypertension with hypertensive heart disease. 3. History of left upper extremity DVT and possibly left lower extremity. 4. Carpal tunnel syndrome. 5. Status post bilateral knee replacements. 6. History of thyroidectomy. 7. Status post cholecystectomy. 8. AV fistula, left upper extremity. 9. Anemia of chronic kidney disease. 10. Hypothyroidism. MEDICATIONS: Prior to admission reviewed and reconciled. ALLERGIES: Penicillin. SOCIAL HISTORY: Negative for smoking, alcohol, or substance abuse. FAMILY HISTORY: Notable for prostate cancer in her father and heart disease in her mother. REVIEW OF SYSTEMS: A 10-point review of systems performed, all systems negative other than noted above. PHYSICAL EXAMINATION: VITAL SIGNS: Temperature max 100.8 degrees, presently 99.5 degrees; blood pressure 116/63; heart rate 86; and respiratory rate 18. HEENT: Conjunctivae pink. Sclerae are anicteric. Oropharynx clear. NECK: Supple. Jugular venous pressure normal. Healed scar. No bruits. CARDIAC: Regular rhythm and rate. Normal S1 and S2 with a fourth heart sound. LUNGS: Clear. EXTREMITIES: Reveal left upper extremity AV graft with palpable bruit. No clubbing, cyanosis, calf tenderness, or edema. Right knee has some swelling and warmth. NEUROLOGIC: Grossly nonfocal. LABORATORY AND DIAGNOSTIC DATA: Her EKG revealed sinus rhythm with no abnormalities. From yesterday, white count 9 and hemoglobin 7.5. Potassium 3.8, BUN 37 and creatinine 7.6. Albumin is 2.2. Chest x-ray, and echocardiogram are pending. IMPRESSION AND PLAN: This 67-year-old female with a septic right knee prosthesis. She is an acceptable candidate for orthopedic surgery at this time. Her perioperative cardiovascular risk is minimally increased. I would recommend a venous duplex scan to evaluate for DVT in the lower extremities prior to surgery. Otherwise, she should remain on her current cardiovascular regimen with her Eliquis obviously being held perioperatively. Marcelo Vera M.D. DR: FEDERICO JOB#: [id number] CC:
[2017-09-05 20:00] VITALS: BP 112/72
[2017-09-05] MEDS: Dyna-Hex 2% Top Sol 2oz TOPIC SCH (22:37)
[2017-09-06 04:00] VITALS: BP 118/63
[2017-09-06] MEDS: Levothyroxine 125mcg tab ORAL SCH (06:10)
[2017-09-06 07:10] LABS: BASOPHILS % (AUTO) 0.9 % (0.0-2.0); EOSINOPHILS % (AUTO) 2.4 % (0.0-3.0); HEMATOCRIT 25.6 % (37.0-47.0); HEMOGLOBIN 8.2 G/DL (12.0-16.0); MEAN CORPUSCULAR VOLUME 90 FL (80-99); MONOCYTES % (AUTO) 9.5 % (1.0-10.0); NEUTROPHILS % (AUTO) 69.1 % (45.0-75.0); PLATELET COUNT 364 K/UL (150-450); RED BLOOD COUNT 2.84 M/UL (4.20-5.40); RED CELL DISTRIBUTION WIDTH 16.8 % (11.6-14.8)
[2017-09-06 07:14] LABS: ALBUMIN 2.1 G/DL (3.4-5.0); ALBUMIN/GLOBULIN RATIO 0.4 (1.0-2.7); ALKALINE PHOSPHATASE 40 U/L (46-116); ANION GAP 9 mmol/L (5-15); ASPARTATE AMINO TRANSFERASE 14 U/L (15-37); BILIRUBIN,TOTAL 0.5 MG/DL (0.2-1.0); BLOOD UREA NITROGEN 30 mg/dL (7-18); CALCIUM 8.6 MG/DL (8.5-10.1); CARBON DIOXIDE 24 MMOL/L (21-32); CHLORIDE 101 MMOL/L (98-107); CREATININE 5.9 MG/DL (0.55-1.30); SODIUM 134 MMOL/L (136-145)
[2017-09-06 07:24] LABS: ALANINE AMINOTRANSFERASE < 6 U/L (12-78)
[2017-09-06 08:00] VITALS: BP 112/57
[2017-09-06] MEDS: Sertraline 50mg tab ORAL SCH (09:00)
[2017-09-06 09:50] LABS: APPEARANCE,URINE CLEAR; BILIRUBIN, URINE NEGATIVE (NEGATIVE); COLOR,URINE PALE YELLOW; GLUCOSE, URINE (UA) NEGATIVE (NEGATIVE); KETONES,URINE NEGATIVE (NEGATIVE); LEUKOCYTE ESTERASE ,URINE NEGATIVE (NEGATIVE); NITRITE,URINE NEGATIVE (NEGATIVE); PH,URINE 9 (4.5-8.0); PROTEIN,URINE 2+ (NEGATIVE); UROBILINOGEN,URINE NORMAL MG/DL (0.0-1.0)
--- NOTE | 2017-09-06 09:56 | Nephrology Progress Note ---
Assessment/Plan Plan For Knee surgery + HD today Subjective Subjective B Knee pain Objective Objective Last 24 Hour Vital Signs Date Time Temp Pulse Resp B/P (MAP) Pulse Ox O2 Delivery O2 Flow Rate FiO2 09/06/17 08:00 98.2 69 12 112/57 97 Room Air 98.2 09/06/17 04:00 98.2 70 20 118/63 97 98.2 09/05/17 22:37 95 119/62 09/05/17 20:00 98.2 72 20 112/72 99 98.2 09/05/17 18:06 98.8 80 20 104/63 99 Room Air 98.8 09/05/17 12:30 99.5 09/05/17 12:00 99.3 68 18 100/64 100 99.3 Intake and Output 09/05/17 09/06/17 19:00 07:00 Intake Total 1135 ml Balance 1135 ml Intake Oral 1080 ml IV Total 55 ml # Voids 2 1 Laboratory Tests 09/06/17 05:35: White Blood Count 9.0, Red Blood Count 2.84L, Hemoglobin 8.2L, Hematocrit 25.6L , Mean Corpuscular Volume 90, Mean Corpuscular Hemoglobin 29.0, Mean Corpuscular Hemoglobin Concent 32.1, Red Cell Distribution Width 16.8H, Platelet Count 364, Mean Platelet Volume 5.0L, Neutrophils (%) (Auto) 69.1, Lymphocytes (%) (Auto) 18.0L, Monocytes (%) (Auto) 9.5, Eosinophils (%) (Auto) 2.4, Basophils (%) (Auto) 0.9, Sodium Level 134L, Potassium Level 4.0, Chloride Level 101, Carbon Dioxide Level 24, Anion Gap 9, Blood Urea Nitrogen 30H, Creatinine 5.9H, Estimat Glomerular Filtration Rate 8.6, Glucose Level 81, Calcium Level 8.6, Total Bilirubin 0.5, Aspartate Amino Transf (AST/SGOT) 14L, Alanine Aminotransferase (ALT/SGPT) < 6L, Alkaline Phosphatase 40L, Total Protein 7.8, Albumin 2.1L, Globulin 5.7, Albumin/Globulin Ratio 0.4L, Random Vancomycin Level 16.2 09/06/17 09:30: Prothrombin Time [Pending], Prothromb Time International Ratio [Pending], Activated Partial Thromboplast Time [Pending], Urine Color [Pending], Urine Appearance [Pending], Urine pH [Pending], Urine Specific [place] [Pending], Urine Protein [Pending], Urine Glucose (UA) [Pending], Urine Ketones [Pending], Urine Occult Blood [Pending], Urine Nitrite [Pending], Urine Bilirubin [Pending] , Urine Urobilinogen [Pending], Urine Leukocyte Esterase [Pending], Urine RBC [ Pending], Urine WBC [Pending], Urine Squamous Epithelial Cells [Pending], Urine Bacteria [Pending] Height (Feet): 5 Height (Inches): 6.00 Weight (Pounds): 196 Objective Cv RR Lungs CTA Abd SNT. BS + E No CCE. Rt. Knee tender. Rosa AVF + Nate Li MD September 06, 2017 09:56
--- NOTE | 2017-09-06 10:02 | General Progress Note ---
Assessment/Plan Assessment/Plan septic knee hypertension ho DVT (eliquis on hold) ESRD right knee pain and drainage ho Knee replacement anemia s/p transfusion PLAN HD per renal ID evaluation noted transfuse additional with HD ortho noted CXR ordered patient would like SNF when cleared impression, plan, and exam edited and reviewed in detail care discussed with RN Subjective Allergies: Coded Allergies: AMOXICILLIN (Verified Allergy, Unknown, 11/24/16) CHOCOLATE FLAVOR (Verified Allergy, Unknown, 11/24/16) Subjective d/w ortho removal of hardware TODAY will need prolonged antibiotics PICC Placed echo normal s/p transfusion Objective Last 24 Hour Vital Signs Date Time Temp Pulse Resp B/P (MAP) Pulse Ox O2 Delivery O2 Flow Rate FiO2 09/06/17 08:00 98.2 69 12 112/57 97 Room Air 98.2 09/06/17 04:00 98.2 70 20 118/63 97 98.2 09/05/17 22:37 95 119/62 09/05/17 20:00 98.2 72 20 112/72 99 98.2 09/05/17 18:06 98.8 80 20 104/63 99 Room Air 98.8 09/05/17 12:30 99.5 09/05/17 12:00 99.3 68 18 100/64 100 99.3 Intake and Output 09/05/17 09/06/17 19:00 07:00 Intake Total 1135 ml Balance 1135 ml Intake Oral 1080 ml IV Total 55 ml # Voids 2 1 Laboratory Tests 09/06/17 05:35: White Blood Count 9.0, Red Blood Count 2.84L, Hemoglobin 8.2L, Hematocrit 25.6L , Mean Corpuscular Volume 90, Mean Corpuscular Hemoglobin 29.0, Mean Corpuscular Hemoglobin Concent 32.1, Red Cell Distribution Width 16.8H, Platelet Count 364, Mean Platelet Volume 5.0L, Neutrophils (%) (Auto) 69.1, Lymphocytes (%) (Auto) 18.0L, Monocytes (%) (Auto) 9.5, Eosinophils (%) (Auto) 2.4, Basophils (%) (Auto) 0.9, Sodium Level 134L, Potassium Level 4.0, Chloride Level 101, Carbon Dioxide Level 24, Anion Gap 9, Blood Urea Nitrogen 30H, Creatinine 5.9H, Estimat Glomerular Filtration Rate 8.6, Glucose Level 81, Calcium Level 8.6, Total Bilirubin 0.5, Aspartate Amino Transf (AST/SGOT) 14L, Alanine Aminotransferase (ALT/SGPT) < 6L, Alkaline Phosphatase 40L, Total Protein 7.8, Albumin 2.1L, Globulin 5.7, Albumin/Globulin Ratio 0.4L, Random Vancomycin Level 16.2 09/06/17 09:30: Prothrombin Time [Pending], Prothromb Time International Ratio [Pending], Activated Partial Thromboplast Time [Pending], Urine Color Pale yellow, Urine Appearance Clear, Urine pH 9, Urine Specific [place] 1.010, Urine Protein 2+H, Urine Glucose (UA) Negative, Urine Ketones Negative, Urine Occult Blood 3+H, Urine Nitrite Negative, Urine Bilirubin Negative, Urine Urobilinogen Normal, Urine Leukocyte Esterase Negative, Urine RBC 2-4H, Urine WBC 0-2, Urine Squamous Epithelial Cells Few, Urine Bacteria Occasional Height (Feet): 5 Height (Inches): 6.00 Weight (Pounds): 196 Objective WDWN NAD clear breath sounds bilaterally without rhonchi or wheeze [id number] without RG; noted systolic murmur NABS nontender no HSM no CC right knee without change nonfocal Arya Ochoa MD September 06, 2017 10:02
[2017-09-06] MEDS ORDERED: Vancomycin 1250mg/D5W 250ml IVPB SCH (10:30)
--- NOTE | 2017-09-06 11:02 | Diagnostic Imaging Report ---
Indication: Dyspnea Comparison: None A single view chest radiograph was obtained. Findings: Cardiomediastinal appearance is within normal limits for age. PICC line is in good position with the tip in the proximal right atrium. Pulmonary vascularity is appropriate. The diaphragmatic contour is smooth and costophrenic angles are sharp. No pleural effusions are identified. The bones are unremarkable. Impression: No acute findings
--- NOTE | 2017-09-06 11:32 | Infectious Diseases Prog Note ---
Assessment/Plan Assessment/Plan antibiotics : vancomycin iv, ceftriaxone A 1. right knee arthroplasty infection with staph aureus 2. renal failure on dialysis 3. hypothyroidism P 1. continue iv vancomycin 2. d/c ceftriaxone 3. will follow up cultures Subjective Constitutional: Denies: fever, chills Respiratory: Reports: dry cough; Denies: shortness of breath Gastrointestinal/Abdominal: Denies: nausea, vomiting, diarrhea Musculoskeletal: Reports: pain - right knee Allergies: Coded Allergies: AMOXICILLIN (Verified Allergy, Unknown, 11/24/16) CHOCOLATE FLAVOR (Verified Allergy, Unknown, 11/24/16) Objective Vital Signs Last 24 Hour Vital Signs Date Time Temp Pulse Resp B/P (MAP) Pulse Ox O2 Delivery O2 Flow Rate FiO2 09/06/17 08:00 98.2 69 12 112/57 97 Room Air 98.2 09/06/17 04:00 98.2 70 20 118/63 97 98.2 09/05/17 22:37 95 119/62 09/05/17 20:00 98.2 72 20 112/72 99 98.2 09/05/17 18:06 98.8 80 20 104/63 99 Room Air 98.8 09/05/17 12:30 99.5 09/05/17 12:00 99.3 68 18 100/64 100 99.3 Height (Feet): 5 Height (Inches): 6.00 Weight (Pounds): 196 Respiratory/Chest: lungs clear Cardiovascular: normal rate, regular rhythm, no gallop/murmur Abdomen: soft, non tender Extremities: no edema, other - right knee swelling, erythema Microbiology Date/Time Source Procedure Growth Status 09/04/17 16:00 Wound Gram Stain - Final Resulted 09/04/17 16:00 Wound Culture - Preliminary Staphylococcus Aureus Resulted Laboratory Tests Test 09/06/17 05:35 09/06/17 09:30 White Blood Count 9.0 K/UL (4.8-10.8) Red Blood Count 2.84 M/UL (4.20-5.40) L Hemoglobin 8.2 G/DL (12.0-16.0) L Hematocrit 25.6 % (37.0-47.0) L Mean Corpuscular Volume 90 FL (80-99) Mean Corpuscular Hemoglobin 29.0 PG (27.0-31.0) Mean Corpuscular Hemoglobin Concent 32.1 G/DL (32.0-36.0) Red Cell Distribution Width 16.8 % (11.6-14.8) H Platelet Count 364 K/UL (150-450) Mean Platelet Volume 5.0 FL (6.5-10.1) L Neutrophils (%) (Auto) 69.1 % (45.0-75.0) Lymphocytes (%) (Auto) 18.0 % (20.0-45.0) L Monocytes (%) (Auto) 9.5 % (1.0-10.0) Eosinophils (%) (Auto) 2.4 % (0.0-3.0) Basophils (%) (Auto) 0.9 % (0.0-2.0) Sodium Level 134 MMOL/L (136-145) L Potassium Level 4.0 MMOL/L (3.5-5.1) Chloride Level 101 MMOL/L (98-107) Carbon Dioxide Level 24 MMOL/L (21-32) Anion Gap 9 mmol/L (5-15) Blood Urea Nitrogen 30 mg/dL (7-18) H Creatinine 5.9 MG/DL (0.55-1.30) H Estimat Glomerular Filtration Rate 8.6 mL/min (>60) Glucose Level 81 MG/DL (74-106) Calcium Level 8.6 MG/DL (8.5-10.1) Total Bilirubin 0.5 MG/DL (0.2-1.0) Aspartate Amino Transf (AST/SGOT) 14 U/L (15-37) L Alanine Aminotransferase (ALT/SGPT) < 6 U/L (12-78) L Alkaline Phosphatase 40 U/L (46-116) L Total Protein 7.8 G/DL (6.4-8.2) Albumin 2.1 G/DL (3.4-5.0) L Globulin 5.7 g/dL Albumin/Globulin Ratio 0.4 (1.0-2.7) L Random Vancomycin Level 16.2 ug/mL Prothrombin Time 10.2 SEC (9.30-11.50) Prothromb Time International Ratio 1.0 (0.9-1.1) Activated Partial Thromboplast Time 24 SEC (23-33) Urine Color Pale yellow Urine Appearance Clear Urine pH 9 (4.5-8.0) Urine Specific [place] 1.010 (1.005-1.035) Urine Protein 2+ (NEGATIVE) H Urine Glucose (UA) Negative (NEGATIVE) Urine Ketones Negative (NEGATIVE) Urine Occult Blood 3+ (NEGATIVE) H Urine Nitrite Negative (NEGATIVE) Urine Bilirubin Negative (NEGATIVE) Urine Urobilinogen Normal MG/DL (0.0-1.0) Urine Leukocyte Esterase Negative (NEGATIVE) Urine RBC 2-4 /HPF (0 - 2) H Urine WBC 0-2 /HPF (0 - 2) Urine Squamous Epithelial Cells Few /LPF (NONE/OCC) Urine Bacteria Occasional /HPF (NONE) Current Medications Medications (Trade) Dose Ordered Sig/Adia Route PRN Reason Start Time Stop Time Status Last Admin Dose Admin Acetaminophen (Tylenol) 650 mg Q4H PRN ORAL Mild Pain/Temp > 100.5 09/05/17 13:30 10/05/17 13:29 Amlodipine Besylate (Norvasc) 5 mg DAILY ORAL 09/05/17 09:00 10/05/17 08:59 09/05/17 08:53 Ceftriaxone Sodium 1 gm/ Dextrose 55 ml @ 110 mls/hr Q24H IVPB 09/05/17 14:00 09/12/17 23:59 09/05/17 16:58 Chlorhexidine Gluconate (Alexandra-Hex 2%) 1 applic DAILY@2000 TOPIC 09/05/17 20:00 10/05/17 19:59 09/05/17 22:37 Epoetin Sergio (Procrit (for ESRD on dialysis)) 7,000 units MON-MON-MON SUBQ 09/06/17 21:00 10/06/17 20:59 Heparin Sodium (Porcine) (Heparin Sod 1000 units/ml 10ml) 2,000 unit ONCE PRN IV FOR DIALSYS 09/05/17 17:15 09/06/17 18:00 Heparin Sodium/ Sodium Chloride (Heparin 2000 units/Ns 1000ml premix) 2,000 unit ONCE PRN INJ FOR PICC LINE PLACEMENT 09/05/17 12:45 09/06/17 23:59 Levothyroxine Sodium (Synthroid) 125 mcg DAILY@0630 ORAL 09/05/17 06:30 10/05/17 06:29 09/06/17 06:10 Lidocaine HCl (Xylocaine 1% 30ml) 30 ml ONCE PRN INJ FOR PICC LINE PLACEMENT 09/05/17 12:45 09/06/17 23:59 Metoprolol Tartrate (Lopressor) 50 mg Q12HR ORAL 09/04/17 21:00 10/04/17 20:59 09/05/17 22:37 Sertraline HCl (Zoloft) 25 mg DAILY ORAL 09/05/17 09:00 10/05/17 08:59 09/05/17 08:52 Sevelamer Carbonate (Renvela) 2,400 mg THREE TIMES A DAY ORAL 09/04/17 19:15 10/04/17 19:14 09/05/17 16:58 Sodium Chloride 1,000 ml @ 500 mls/hr Q2H PRN IVLG sbp<90 during hd 09/06/17 08:00 09/06/17 23:59 Tramadol HCl (Ultram) 50 mg Q6H PRN ORAL For Pain 09/04/17 18:30 09/11/17 18:29 09/05/17 12:30 Vancomycin HCl (Vanco rx to dose) 1 ea DAILY PRN MISC Per rx protocol 09/04/17 18:30 10/04/17 18:29 Vancomycin HCl/ Dextrose 250 ml @ 166.667 mls/hr ONCE IVPB 09/06/17 10:30 09/06/17 11:30 PASTORA GAR September 06, 2017 11:32
[2017-09-06 12:00] VITALS: BP 100/64
--- NOTE | 2017-09-06 13:19 | Diagnostic Imaging Report ---
APPROVED REPORT CPT Code: 68983 Present Symptoms Comments: BILATERAL LEGS PAIN. BILATERAL: Imaging reveals a patent deep venous system bilaterally. There is no evidence of thrombus within the femoral, popliteal or tibial segments. The greater saphenous veins are also within normal limits. Doppler indicates normal spontaneous flow within these segments.
[2017-09-06 15:33] VITALS: BP 112/57
--- NOTE | 2017-09-06 16:44 | Cardiology Report ---
APPROVED REPORT EKG Measurement Heart [id number] Normal sinus rhythm Normal ECG
[2017-09-06] MEDS: traMADol 50mg tab ORAL PRN (16:49)
[2017-09-06] MEDS: Docusate 100mg cap ORAL SCH (17:39)
[2017-09-06] MEDS: Metoprolol Tartrate 50mg tab ORAL SCH ×2 (17:40→21:20)
[2017-09-06 20:00] VITALS: BP 133/65
[2017-09-06] MEDS ORDERED: Tubing IV Secondary IV ONE (20:16)
[2017-09-06] MEDS ORDERED: NS 500ML ONE (20:16)
[2017-09-06] MEDS ORDERED: Tubing Blood Filter IV ONE (20:32)
[2017-09-06] MEDS ORDERED: Epogen (for ESRD on dialysis) SUBQ SCH (21:00)
[2017-09-06] MEDS: Dyna-Hex 2% Top Sol 2oz TOPIC SCH (21:21)
[2017-09-06 21:25] VITALS: BP 129/68
[2017-09-07] VITALS (7 sets, daily range): BP systolic 117–130; BP diastolic 68–75
--- NOTE | 2017-09-07 03:00 | Progress Note ---
DATE: 09/06/2017 SUBJECTIVE: No issues overnight. She was somewhat anemic last night. She does have cardiac workup and is scheduled for dialysis today. OBJECTIVE: Examination unchanged. She still has moderate drainage along the right knee. Posterior calf is soft. Neurovascular exam is normal. ASSESSMENT: Right periprosthetic infection. DISCUSSION: At this point, she was noted to be somewhat anemic last night. She did get 2 units of blood. She is going to be dialyzed today. She has been seen by the biomedical engineering technician in anticipation for medical clearance for surgery. We will see how it goes. If she is medically optimized, then we will proceed with surgery, otherwise, it sounds may be little bit too much for her to have surgery tonight given the medical comorbidities and it may be reasonable to delay the surgery, and the fact that I am leaving on Monday. I have discussed transfer of the patient to [facility] under the care of Dr. Reilly and Dr. Ochoa. I have contacted the transfer center in anticipation of possible transfer to [facility] for definitive surgery. Raymond Tinoco M.D. DR: Skyla JOB#: [id number] CC:
[2017-09-07] MEDS: Levothyroxine 125mcg tab ORAL SCH (05:49)
--- NOTE | 2017-09-07 08:23 | General Progress Note ---
Assessment/Plan Assessment/Plan septic knee hypertension ho DVT (eliquis on hold) ESRD right knee pain and drainage ho Knee replacement anemia s/p transfusion PLAN HD per renal ID evaluation and antibiotics transfuse additional with HD ortho noted PICC in place CXR negative transfer to [facility] patient would like SNF when cleared impression, plan, and exam edited and reviewed in detail care discussed with RN Subjective Allergies: Coded Allergies: AMOXICILLIN (Verified Allergy, Unknown, 11/24/16) CHOCOLATE FLAVOR (Verified Allergy, Unknown, 11/24/16) Subjective d/w ortho surgery cancelled will need transfer to [facility] PICC Placed echo normal s/p transfusion Objective Last 24 Hour Vital Signs Date Time Temp Pulse Resp B/P (MAP) Pulse Ox O2 Delivery O2 Flow Rate FiO2 09/07/17 04:00 98.2 72 16 127/72 99 Room Air 98.2 09/07/17 00:00 99.0 71 18 129/68 100 Room Air 99.0 09/06/17 21:25 99.0 71 18 129/68 95 Room Air 99.0 09/06/17 21:20 71 129/68 09/06/17 20:00 98.8 78 18 133/65 97 Room Air 98.8 09/06/17 17:48 98.2 09/06/17 17:40 69 112/57 09/06/17 16:49 98.2 09/06/17 15:33 98.2 69 19 112/57 97 98.2 09/06/17 12:00 99.3 69 16 100/64 100 Room Air 99.3 Intake and Output 09/06/17 09/07/17 19:00 07:00 Intake Total 400 ml Balance 400 ml Intake Oral 400 ml # Voids 1 1 Laboratory Tests 09/06/17 09:30: Prothrombin Time 10.2, Prothromb Time International Ratio 1.0, Activated Partial Thromboplast Time 24, Urine Color Pale yellow, Urine Appearance Clear, Urine pH 9, Urine Specific [place] 1.010, Urine Protein 2+H, Urine Glucose (UA) Negative, Urine Ketones Negative, Urine Occult Blood 3+H, Urine Nitrite Negative , Urine Bilirubin Negative, Urine Urobilinogen Normal, Urine Leukocyte Esterase Negative, Urine RBC 2-4H, Urine WBC 0-2, Urine Squamous Epithelial Cells Few, Urine Bacteria Occasional Height (Feet): 5 Height (Inches): 6.00 Weight (Pounds): 196 Objective WDWN NAD clear breath sounds bilaterally without rhonchi or wheeze [id number] without RG; noted systolic murmur NABS nontender no HSM no CC right knee without change nonfocal Arya Ochoa MD September 07, 2017 08:23
--- NOTE | 2017-09-07 09:45 | Progress Note ---
DATE: 09/06/2017 CARDIOLOGY PROGRESS NOTE SUBJECTIVE: The patient without chest pain or shortness of breath. Knee pain seems to be controlled with current medications. OBJECTIVE: VITAL SIGNS: Blood pressure 112/57, pulse 69, respirations 12, and afebrile. LUNGS: Clear. CARDIAC: Regular rhythm and rate. Normal S1, S2 with no murmur. ABDOMEN: Soft and nontender. EXTREMITIES: Trace dependent edema and knee swelling. LABORATORY AND DIAGNOSTIC DATA: White count 9, hemoglobin 8.2. Potassium 4, BUN 30, creatinine 5.9. Albumin 2.1. Venous duplex scan revealed no evidence of DVT. Chest x-ray today revealed no active disease. IMPRESSION: Septic right knee prosthesis, no signs of active cardiopulmonary disease, stable for general anesthesia with no anticipated increase in perioperative risk. PLAN: 1. Continue to hold anticoagulation until stable postoperative surgical state. 2. Routine respiratory hygiene. 3. Blood pressure management in perioperative period. Marcelo Vera M.D. DR: NAKIA JOB#: [id number] CC:
[2017-09-07] MEDS: Docusate 100mg cap ORAL SCH ×2 (09:53→18:13)
[2017-09-07] MEDS: Sertraline 50mg tab ORAL SCH (09:54)
[2017-09-07] MEDS: Metoprolol Tartrate 50mg tab ORAL SCH ×2 (09:54→20:31)
--- NOTE | 2017-09-07 12:28 | Infectious Diseases Prog Note ---
Assessment/Plan Assessment/Plan A: 1. right knee arthroplasty infection with staph aureus, MSSA 2. renal failure on dialysis 3. hypothyroidism P 1. continue iv vancomycin 2. will have h prosthetic knee removal Subjective ROS Limited/Unobtainable: No Respiratory: Reports: no symptoms Cardiovascular: Reports: no symptoms Gastrointestinal/Abdominal: Reports: no symptoms Genitourinary: Reports: no symptoms Musculoskeletal: Reports: other - pain in R knee Allergies: Coded Allergies: AMOXICILLIN (Verified Allergy, Unknown, 11/24/16) CHOCOLATE FLAVOR (Verified Allergy, Unknown, 11/24/16) Objective Vital Signs Last 24 Hour Vital Signs Date Time Temp Pulse Resp B/P (MAP) Pulse Ox O2 Delivery O2 Flow Rate FiO2 09/07/17 12:00 98.4 71 18 127/75 99 98.4 09/07/17 09:54 74 117/74 09/07/17 09:53 74 117/74 09/07/17 08:00 98.2 74 20 117/74 98 98.2 09/07/17 04:00 98.2 72 16 127/72 99 Room Air 98.2 09/07/17 00:00 99.0 71 18 129/68 100 Room Air 99.0 09/06/17 21:25 99.0 71 18 129/68 95 Room Air 99.0 09/06/17 21:20 71 129/68 09/06/17 20:00 98.8 78 18 133/65 97 Room Air 98.8 09/06/17 17:48 98.2 09/06/17 17:40 69 112/57 09/06/17 16:49 98.2 09/06/17 15:33 98.2 69 19 112/57 97 98.2 Height (Feet): 5 Height (Inches): 6.00 Weight (Pounds): 196 HEENT: mucous membranes moist Respiratory/Chest: lungs clear Cardiovascular: normal rate, other - R arm PICC line Abdomen: soft, non tender Extremities: no edema, other - R knee effusion, minimal discharge from knee wound Neurologic/Psychiatric: alert, oriented x 3, responsive Microbiology Date/Time Source Procedure Growth Status 09/04/17 16:00 Wound Gram Stain - Final Complete 09/04/17 16:00 Wound Culture - Final Staphylococcus Aureus Complete Current Medications Medications (Trade) Dose Ordered Sig/Adia Route PRN Reason Start Time Stop Time Status Last Admin Dose Admin Acetaminophen (Tylenol) 650 mg Q4H PRN ORAL Mild Pain/Temp > 100.5 09/05/17 13:30 10/05/17 13:29 Amlodipine Besylate (Norvasc) 5 mg DAILY ORAL 09/05/17 09:00 10/05/17 08:59 09/07/17 09:53 Chlorhexidine Gluconate (Alexandra-Hex 2%) 1 applic DAILY@2000 TOPIC 09/05/17 20:00 10/05/17 19:59 09/06/17 21:21 Docusate Sodium (Colace) 100 mg TWICE A DAY ORAL 09/06/17 18:00 10/06/17 17:59 09/07/17 09:53 Epoetin Sergio (Procrit (for ESRD on dialysis)) 7,000 units MON- SUBQ 09/06/17 21:00 10/06/17 20:59 09/06/17 21:21 Levothyroxine Sodium (Synthroid) 125 mcg DAILY@0630 ORAL 09/05/17 06:30 10/05/17 06:29 09/07/17 05:49 Metoprolol Tartrate (Lopressor) 50 mg Q12HR ORAL 09/04/17 21:00 10/04/17 20:59 09/07/17 09:54 Sertraline HCl (Zoloft) 25 mg DAILY ORAL 09/05/17 09:00 10/05/17 08:59 09/07/17 09:54 Sevelamer Carbonate (Renvela) 2,400 mg THREE TIMES A DAY ORAL 09/04/17 19:15 10/04/17 19:14 09/07/17 09:53 Tramadol HCl (Ultram) 50 mg Q6H PRN ORAL For Pain 09/04/17 18:30 09/11/17 18:29 09/06/17 16:49 Vancomycin HCl (Vanco rx to dose) 1 ea DAILY PRN MISC Per rx protocol 09/04/17 18:30 10/04/17 18:29 RADHA PALENCIA September 07, 2017 12:28
--- NOTE | 2017-09-07 16:17 | Nephrology Progress Note ---
Assessment/Plan Plan For Transfer To [facility] . Transfer Center noted. HD tomorrow here or @ [facility]. Subjective Subjective B Knee pain Objective Objective Last 24 Hour Vital Signs Date Time Temp Pulse Resp B/P (MAP) Pulse Ox O2 Delivery O2 Flow Rate FiO2 09/07/17 14:50 98.4 09/07/17 12:00 98.4 71 18 127/75 99 98.4 09/07/17 09:54 74 117/74 09/07/17 09:53 74 117/74 09/07/17 08:00 98.2 74 20 117/74 98 98.2 09/07/17 04:00 98.2 72 16 127/72 99 Room Air 98.2 09/07/17 00:00 99.0 71 18 129/68 100 Room Air 99.0 09/06/17 21:25 99.0 71 18 129/68 95 Room Air 99.0 09/06/17 21:20 71 129/68 09/06/17 20:00 98.8 78 18 133/65 97 Room Air 98.8 09/06/17 17:48 98.2 09/06/17 17:40 69 112/57 09/06/17 16:49 98.2 Intake and Output 09/06/17 09/07/17 19:00 07:00 Intake Total 400 ml Balance 400 ml Intake Oral 400 ml # Voids 1 1 Height (Feet): 5 Height (Inches): 6.00 Weight (Pounds): 196 Objective Cv RR Lungs CTA Abd SNT. BS + E No CCE. Rt. Knee tender. Rosa AVF + bruit Nate Peters MD September 07, 2017 16:17
[2017-09-07] MEDS ORDERED: Milk of Magnesia 30ml Ud ORAL SCH (17:00)
[2017-09-07] MEDS ORDERED: Bisacodyl EC 5mg tab ORAL PRN (17:00)
[2017-09-07] MEDS ORDERED: Milk of Magnesia 30ml Ud ORAL PRN (17:15)
--- NOTE | 2017-09-07 17:15 | Progress Note ---
DATE: 09/07/2017 CARDIOLOGY PROGRESS NOTE SUBJECTIVE: The patient has no new complaints. OBJECTIVE: VITAL SIGNS: Stable. She is afebrile. NECK: Supple. LUNGS: Clear. CARDIAC: Regular. Normal S1 and S2 with no murmur. ABDOMEN: Soft. EXTREMITIES: Unchanged with right knee site dressing intact. PLAN: 1. Stable cardiovascular parameters for orthopedic surgery intervention and removal of hardware. 2. Anticoagulation remains on hold for the past 48 hours. 3. The patient's vascular study reveals no signs of acute or chronic DVT at this time. 4. Postoperative care plan to be updated and include resumption of full anticoagulation. Marcelo Vera M.D. DR: FEDERICO JOB#: [id number] CC:
[2017-09-07] MEDS: Dyna-Hex 2% Top Sol 2oz TOPIC SCH (20:31)
[2017-09-07] MEDS ORDERED: ACETAMINOPHEN325 M1 ORAL (22:05)
[2017-09-07] MEDS ORDERED: AMLODIPINE BESYL5 MG ORAL (22:06)
[2017-09-07] MEDS ORDERED: DYNAHEX 2% LIQ120 ML TP (22:07)
[2017-09-07] MEDS ORDERED: EPOGEN10000 UNIT SUBQ (22:10)
[2017-09-07] MEDS ORDERED: LEVOTHYROXINE125 MCG ORAL (22:14)
[2017-09-07] MEDS ORDERED: MOM30 ML ORAL (22:15)
[2017-09-07] MEDS ORDERED: SERTRALINE HCL25 MG ORAL (22:17)
[2017-09-07] MEDS ORDERED: TRAMADOL HCL50 MG ORAL (22:18)
--- NOTE | 2017-09-08 08:50 | Discharge Summary ---
Discharge Summary Discharge Summary _ DATE OF ADMISSION: 09/04/2017 DATE OF DISCHARGE: 09/07/2017 CONSULTANTS: Dr. Marcelo Peters BRIEF HOSPITAL COURSE: Patient is a 67-year-old female, who presented for evaluation of right knee pain with swelling and drainage at the incision site. She underwent total knee arthroplasty approximately a year ago, done at [place]. She was noted to have periprosthetic infection and underwent an I and D and exchange of tibial liner, with 6 weeks of IV antibiotic. She reported for the last 6 months, she had swelling and drainage on the right knee. She was having fever and warmth on the area. She has medical history significant for a prior DVT on the left arm and left leg, hypertension, carpal tunnel syndrome status post carpal tunnel release of the left hand, acute kidney injury, hypothyroidism, seizures, each renal disease on hemodialysis MWF, status post left and right knee replacement, thyroidectomy, cholecystectomy, tonsillectomy, and fistula placement on the left arm. She was a direct admit for possible septic knee. Cultures were obtained. CT of right knee with no evidence of acute bony trauma. Orthopedic surgeon was consulted. Patient failed one-stage excision and placement of antibiotic spacer. She would eventually need implant removed will need antibiotic spacer and 6 weeks of IV antibiotic treatment. She was recommended transfer to a tertiary care center for a two-stage reconstruction with knee implant removal and cement spacer, and subsequent, revision of total knee arthroplasty. She was febrile, temperature of 100.8. ID was consulted. Clindamycin was discontinued. She was given IV vancomycin and was started on ceftriaxone. She has history of penicillin allergy, but no allergic reaction to ceftriaxone in the past. Wound culture showed growth of MSSA, ceftriaxone was discontinued. She was continued on vancomycin. Patient is on hemodialysis. Dr. Peters was consulted. She was placed on renal diet and was given inpatient hemodialysis. She was continued on Renvela 2004 100 mg 3 times a day. She came in with anemia, hemoglobin of 7.5/hematocrit 23. PICC line was inserted to the right brachial vein. She received total of 4 units packed RBC blood transfusion. She was given Procrit. She was continued on her thyroid medications levothyroxine 125 g daily. She was given metoprolol tartrate 50 mg twice a day, Norvasc 5 mg daily. She underwent perioperative cardiovascular evaluation. She had an echocardiogram done EF 60%, trace aortic regurgitation, mild mitral regurgitation. EKG was in normal sinus rhythm with no abnormalities. Venous duplex of the lower extremity was negative for DVT. She had stable cardiovascular parameters for upcoming orthopedic surgery. Eliquis on hold on preparation for surgery. She was eventually transferred to [facility]. FINAL DIAGNOSES: Septic right knee with staph aureus, MSSA Hypertension History of DVT (Eliquis on hold) History of knee replacement Acute anemia requiring blood transfusion Anemia of chronic kidney disease End-stage renal disease on hemodialysis Hypothyroidism Hypertension DISPOSITION: Patient was transferred to [facility]. DISCHARGE MEDICATIONS: Refer to Discharge Medication List. I have been assigned to dictate discharge summary on this account, and I was not involved in the patient's management. Romana Cevallos NP September 08, 2017 08:50
[2017-09-08] MEDS ORDERED: Heparin Sod 1000 units/ml 10ml IV PRN (16:30)
== END 2017-09-07 22:15 | disposition short-term general hospital (02) | DRG 559 ==
LOC: 4W 12:08
PROC: 02HV33Z Insertion of Infusion Device into Superior Vena Cava, Percutaneous Approach (ICD-10-PCS; principal; 2017-09-05)
PROC: B548ZZA Ultrasonography of Superior Vena Cava, Guidance (ICD-10-PCS; principal; 2017-09-05)
PROC: 5A1D70Z Performance of Urinary Filtration, Intermittent, Less than 6 Hours Per Day (ICD-10-PCS; 2017-09-06)
PROC: 5A1D70Z Performance of Urinary Filtration, Intermittent, Less than 6 Hours Per Day (ICD-10-PCS; 2017-09-07)
DX: T84.53XA Infection and inflammatory reaction due to internal right knee prosthesis, initial encounter (principal); N18.6 End stage renal disease; M00.061 Staphylococcal arthritis, right knee; I13.11 Hypertensive heart and chronic kidney disease without heart failure, with stage 5 chronic kidney disease, or end stage renal disease; B95.61 Methicillin susceptible Staphylococcus aureus infection as the cause of diseases classified elsewhere; Z99.2 Dependence on renal dialysis; E89.0 Postprocedural hypothyroidism; K21.9 Gastro-esophageal reflux disease without esophagitis; Z90.49 Acquired absence of other specified parts of digestive tract; Z96.653 Presence of artificial knee joint, bilateral; Z79.01 Long term (current) use of anticoagulants; Z87.891 Personal history of nicotine dependence; Z88.0 Allergy status to penicillin; Z86.718 Personal history of other venous thrombosis and embolism; D63.1 Anemia in chronic kidney disease
CPT/HCPCS: 36415; 36569; 71045; 76937; 80053; 80202; 81001; 85007; 85025; 85610; 85651; 85730; 86140; 86850; 86870; 86900; 86901; 86904; 86920; 87070; 87181; 87205; 93005; 93306; 93970; S0077